=== PATIENT | female | born 1935 | race Caucasian/White ===

== ENCOUNTER 2024-06-22 05:13 | Inpatient (IN) | payer OTHER, SELFPAY ==
[2024-06-22] VITALS (86 sets, daily range): BP systolic 74–189; BP diastolic 30–160; BMI 20.5
[2024-06-22] MEDS: AMIDATE 20 MG IV (00:33)
--- NOTE | 2024-06-22 00:39 | ED.GENMED ---
History of Present Illness
General
Chief Complaint: Breathing Problem
Source: ambulance crew
Time Seen by Provider: 06/22/24 00:38
History of Present Illness
History of Present Illness:
88-year-old female presents emergency department with reported shortness of breath. Medics were reportedly called out earlier but at that time they refused transport. Upon their second presentation patient was noted to be in mass respiratory
distress with a pulse ox in the 70s. With the nonrebreather they were able to get a maximum pulse ox of 82% and patient was noted to be nonverbal and minimally responsive. History unobtainable from patient at this time and there are no prior
medical records for our review.
Past History
Past History
ED Past Medical History: Renal failure and Other (A-fib, vascular dementia, hypothyroidism)
Social History
Tobacco: Non-smoker (Unknown at this time patient nonverbal)
Alcohol: None (Unknown at this time patient nonverbal)
Drug: None
Personal:
Living: with family
Phy Exam
Physical Exam
Physical Exam:
GENERAL: awake, alert, nonverbal, in severe resp distress
EYE: pupils equal and reactive
NECK: Supple, no significant adenopathy.
ENT: o/p clr, mm very dry
CARDIAC: Regular rate and rhythm .
LUNGS: Equal breath sounds bilaterally, severe resp distress, diffuse rales with scattered wheezing noted
ABDOMEN: Soft, without focal tenderness, no r/g
NEUROLOGICAL: unable to assess given severity of resp distress, no facial droop, maee
SKIN: Warm and dry, skin intact.
MUSCULOSKELETAL: No edema, well perfused.
PSYCH: nonverbal
Scores
Heart Failure Risk
Heart Failure Risk Score: Not Applicable
Course
Orders/Labs/Results
Orders:
Orders
06/22/24 00:28
Electrocardiogram (*1) Urgent
Reason for Study: Other
Other Reason for Exam: Respiratory Distress
EKG- Treatment ONCE
CR Chest Portable - 1 View Urgent
Comment:
Reason For Exam: respiratory distress
Reason Study Needs to be Portable: Patient Unstable
06/22/24 00:33
Etomidate [Amidate 20 mg] 20 mg IV NOW STA
06/22/24 00:34
Succinylcholine Chloride [Anectine] 100 mg IV NOW STA
06/22/24 00:35
COVID-19 Antigen Urgent
Source: Nasal Swab
Complete Blood Count/With Diff Urgent
Comprehensive Metabolic Panel Urgent
NT-proBNP Urgent
Triglycerides Routine
Comment: baseline levels with propofol infusion
Troponin I Urgent
Influenza A+B Rapid Molecular Urgent
WENDY Source: Nasal Swab
Specimen Description:
06/22/24 00:38
Propofol 1,000,000 Mcg/100 ml [Diprivan] 1,000,000 mcg in 100 ml IV NOW
Indication:: Light Sedation
Begin Infusion:: Now
Goal:: RASS 0 to -2
Maximum dose in mcg/kg/min:: 50
Initial dose based on RASS:: Yes
If RASS is:: +1 or pt hemodynamically unstable (SBP < 90mmHg), initiate at 10 mcg/kg/min
If RASS is:: +2, initiate at 20 mcg/kg/min
If RASS is:: greater than or equal to +3, initiate at 30 mcg/kg/min
Titration Instructions:: Titrate by 5-10 mcg/kg/min every 5 minutes until RASS 0 to -2 achieved.
Taper Instructions:: If RASS is at or below goal for 4 consecutive hours decrease infusion by
Taper Instructions:: 5-10 mcg/kg/min every 2 hours to off.
Over-sedation Instructions:: If CPOT 0-2 (at goal) AND RASS -3 to -5 (below goal) decrease sedative by
Over-sedation Instructions:: 50% first. If pain score remains at goal and RASS remains below goal in
Over-sedation Instructions:: 1 hour, decrease opioid infusion by 50%.
Notify provider:: immediately if patient exhibits signs/symptoms of propofol-related
Notify provider:: infusion syndrome.
Additional Instructions:: Patient MUST be mechanically ventilated and MUST receive analgesia.
06/22/24 00:57
Lactic Acid Q4H
Comment: WITH 1ST SET OF BLOOD CULTURES,CANCEL 2ND LACTIC ACID IF FIRST <2
Prothrombin Time Urgent
Venous Blood Gas Urgent
%Oxygen/Room Air: 100
Comment: vent
06/22/24 01:37
Aspirin 300 mg RECTAL NOW STA
Furosemide [Lasix] 40 mg IV ONCE ONE
06/22/24 03:08
Propofol [Diprivan] 20 ml .ROUTE .STK-MED
06/22/24 03:09
Propofol [Diprivan] 50 mg IV NOW STA
06/22/24 04:08
Admit/Transfer Patient As Directed
Co-Sign Provider:
Level of Care: Inpatient admission
Assign to:: ICU
Physician / Group: Ivonne
Diagnosis: VDRF, Acute Hypoxemic Resp Failure, Influenza A
Reason for Hospitalization: VDRF, Acute Hypoxemic Resp Failure, Influenza A
Expected length of stay greater than two midnights?: Yes
ELOS- Estimated Length of Stay in days: 5
I certify the patient meets the requirements for IP care: Yes
PRN Pain Medication Management As Directed
May give lesser potent ordered pain med per pt: Yes
preference::
Protocol:: Medication orders for pain may be administered in a
manner that supports deferring to patient preference
when the pt is:
- Requesting an ordered lesser potent pain medication.
Least to most potent pain medications are defined
as: acetaminophen < NSAID < tramadol < opioids
(morphine, oxycodone, hydromorphone).
- Requesting a lesser dose of the same medication IF
ORDERED.
- Requesting a less intrusive route of administration
if both routes are prescribed by the provider (PO <
IV).
06/22/24 04:09
Code Status As Directed
Resuscitation Status: Full Code
06/22/24 04:50
Oseltamivir [Tamiflu] 30 mg TUBE NOW STA
06/22/24 05:35
Lactic Acid Q4H
Comment: WITH 1ST SET OF BLOOD CULTURES,CANCEL 2ND LACTIC ACID IF FIRST <2
06/22/24 05:56
Acetaminophen [Tylenol Oral Solution] 650 mg TUBE Q6H
FentaNYL 1,000 MCG/100 ML [Sublimaze] 1,000 mcg in 100 ml IV PER PROTOCOL
Indication:: Light Sedation
Begin Infusion:: Other
Begin infusion when:: patient requires 3 or more bolus doses in 2 consecutive hours
Goal:: pain score </= 1, CPOT 0-2, RASS 0 to -2
Maximum dose in mcg/hr:: 300
Initial Dose in mcg/hr:: 25
Titration Instructions:: Titrate every 30 minutes if patient exhibits signs of pain or discomfort
Titration Instructions:: (pain score >/= 2, CPOT>/= 3).
Titration Instructions:: Administer bolus dose and increase infusion by 25 mcg/hr.
Taper Instructions:: If pain score at goal for 4 consecutive hours (pain score </= 1, CPOT 0-2)
Taper Instructions:: decrease infusion by 50 mcg/hr every 2 hours.
Taper Instructions:: When dose </= 50 mcg/hr may turn infusion off and consider PRN
Taper Instructions:: intermittent bolus doses only.
Over-sedation Instructions:: If CPOT 0-2 (goal) and RASS -3 to -5 (below goal) decrease sedative by 50%
Over-sedation Instructions:: first. If pain score remains at goal and RASS remains below goal in 1 hour,
Over-sedation Instructions:: decrease opioid infusion by 50%.
Notify provider:: immediately if pt exhibits: chest wall rigidity, hemodynamic instability,
Notify provider:: agitation/pain despite maximum dosing, pain when RASS -3 to -5 (below goal)
Additional Instructions:: When starting infusion, administer bolus dose per PRN order first.
Additional Instructions:: Patient MUST be mechanically ventilated.
Fentanyl Citrate/Pf [Sublimaze] 50 mcg IV [id number] PRN
Propofol 1,000,000 Mcg/100 ml [Diprivan] 1,000,000 mcg in 100 ml IV PER PROTOCOL
Indication:: Light Sedation
Begin Infusion:: Now
Goal:: RASS 0 to -2
Maximum dose in mcg/kg/min:: 50
Continue currently infusion dose and titrate:: Yes
Titration Instructions:: Titrate by 5-10 mcg/kg/min every 5 minutes until RASS 0 to -2 achieved.
Taper Instructions:: If RASS is at or below goal for 4 consecutive hours decrease infusion by
Taper Instructions:: 5-10 mcg/kg/min every 2 hours to off.
Over-sedation Instructions:: If CPOT 0-2 (at goal) AND RASS -3 to -5 (below goal) decrease sedative by
Over-sedation Instructions:: 50% first. If pain score remains at goal and RASS remains below goal in
Over-sedation Instructions:: 1 hour, decrease opioid infusion by 50%.
Notify provider:: immediately if patient exhibits signs/symptoms of propofol-related
Notify provider:: infusion syndrome.
Additional Instructions:: Patient MUST be mechanically ventilated and MUST recieve analgesia
06/22/24 05:56
Consult Notification Routine
Specialty to Notify: Pulmonary
Date consulting provider notified: 06/22/24
Time consulting provider notified: 06:56
Notified:: Provider
PULMONARY CONSULT Routine
Consulting Provider: Anai Gupta
Was physician already notified: No
Reason for consult: VDRF / Influenza
Activity As Directed
Activity Level: Bedrest
EKG with chest pain [ECG as needed] As Directed
ECG as needed for:: Chest Pain
Beckman Catheter [Catheter- Indwelling] As Directed
Reason for insertion: I&O's Critical Care
Assess insertion reason daily.Remove if no longer applicable: Yes
Gastrointestinal Tubes As Directed
Type: Landen meyerjulius
To suction?: No
Irrigate tube?: Yes
Irrigant: Tap Water
Frequency: Q4H
Amount in mls: 30
Irrigation Directions: Irrigate Q4H and PRN
I/O [Intake/ Output] As Directed
Frequency: Per unit guidelines
Pneumatic Compression Sleeves As Directed
Type: Knee high
Precautions As Directed
Type of Precautions: Droplet
Vital Signs As Directed
Frequency: Per unit guidelines
Weight As Directed
Frequency: Daily
DX Deep Vein Thrombosis Video Routine
06/22/24 06:00
EKG [Electrocardiogram (*1)] IN AM
Reason for Study: Chest Pain
NPO
Allow oral meds: Yes
Allow clear liquids: Sips of Clears
Piperacillin/Tazo 2.25 Gram [Zosyn] 2.25 grams in 50 ml IV Q6H
06/22/24 06:21
Basic Metabolic Panel IN AM
Complete Blood Count/No Diff IN AM
LFT [Nrrpj-Weyu-Ltvaqja] IN AM
Magnesium IN AM
TSH Reflex To Free T4 Routine
Triglycerides Routine
Comment: baseline levels with propofol infusion
Troponin I Q6H
06/22/24 06:24
ABG [Arterial Blood Gas] IN AM
%Oxygen/Room Air: Vent
06/22/24 08:00
Albuterol [ProAIR HFA INHALER] 2 puff INH R QID
Amiodarone [Pacerone] 100 mg TUBE DAILY
Apixaban [Eliquis] 2.5 mg TUBE BID
Pantoprazole [Protonix IV] 40 mg IV DAILY
06/22/24 15:13
Troponin I Q6H
06/22/24 23:08
Troponin I Q6H
06/23/24 06:00
Levothyroxine [Synthroid] 112 mcg TUBE DAILY@0600
06/23/24 08:00
Oseltamivir [Tamiflu] 30 mg TUBE DAILY
Polyethylene Glycol Powder [Miralax] 17 grams TUBE DAILY
06/25/24 06:00
Triglycerides Q3D
Comment: every 72 hours while patient is on propofol
06/28/24 06:00
Triglycerides Q3D
Comment: every 72 hours while patient is on propofol
07/01/24 06:00
Triglycerides Q3D
Comment: every 72 hours while patient is on propofol
Abnormal Lab Results
06/22/24 06/22/24
00:35 00:57
WBC 18.9 H 10^3/uL
(4.8-10.8)
RBC 3.58 L 10^6/uL
(4.20-5.40)
Hgb 11.0 L g/dL
(12.0-16.0)
Hct 35.5 L %
(37.0-47.0)
MCV 99.2 H fL
(81.0-99.0)
MCHC 31.0 L g/dL
(33.0-37.0)
MPV 10.7 H fL
(7.4-10.4)
Abs Immat Gran (auto) 0.4 H 10^3/uL
(0-0.05)
Absolute Neuts (auto) 13.3 H 10^3/uL
(1.4-6.5)
Absolute Monos (auto) 1.9 H 10^3/uL
(0.1-0.6)
Immature Gran % 2.2 H %
(0-0.5)
Lymphocytes % 17.1 L %
(20.5-51.1)
Monocytes % 10.1 H %
(1.7-9.3)
PT 16.7 H Sec
(11.4-14.6)
VBG pH 7.21 L
(7.32-7.43)
VBG pCO2 52 H mmHg
(35-48)
VBG pO2 103 H mmHg
(30-50)
VBG HCO3 20.8 L mmol/L
(22-27)
Carbon Dioxide 17 L mmol/L
(22-30)
BUN 36 H mg/dl
(7-17)
Creatinine 1.7 H mg/dL
(0.6-1.0)
Glucose 241 H mg/dl
(70-99)
Lactic Acid 3.7 H mmol/L
(0.7-2.0)
AST 98 H U/L
(14-36)
ALT 58 H U/L
(0-35)
Alkaline Phosphatase 179 H U/L
(38-126)
Troponin I 0.735 H* ng/ml
06/22/24 00:35
06/22/24 00:35
Vital Signs
Initial and Last Documented VS:
Initial Vital Signs
Temp Pulse Resp BP Pulse Ox
97.8 F 72 22 145/60 57
06/22/24 00:25 06/22/24 00:25 06/22/24 00:25 06/22/24 00:25 06/22/24 00:25
Last Documented Vital Signs
Temp Pulse Resp BP Pulse Ox
96.3 F L 62 15 107/46 99
06/24/24 07:22 06/24/24 08:30 06/24/24 08:30 06/24/24 08:30 06/24/24 08:44
Procedures
Intubations
Procedure completed by: Sanna Beckman MD
Method of Intubation: glidescope
Tube size (cm): 7.0
Placement confirmed by: auscutation, capnography and direct visualization
Breath sounds after intubation: equal
Intubation complications: no complications
*Critical Care Note
Total Time (30-74mins, 75-104mins- exclusive of procedures): 40
Update Note
Update Note:
Patient presents to the Emergency Department with
Number and Complexity of Problems Addressed at the Encounter
� Chronic conditions affecting care:
� Acute Exacerbation and/or Progression of Chronic Illness:
� Differential Diagnosis includes:
Amount and/or Complexity of Data to be Reviewed and Analyzed
� I performed an independent evaluation of and my interpretation is:
EKG: Read by me, normal sinus rhythm, nonspecific T wave abnormalities, no acute STEMI noted
CT:
Xrays:
Laboratory Studies: Influenza A positive with associated leukocytosis and left shift, nonspecific anemia, renal insufficiency, troponin elevation likely demand ischemia, BNP elevation may be consistent with concurrent heart
failure
Other:
� Review of other/old records reveals: None available however I have reviewed patient's medications that were brought by EMS she is on amiodarone, levothyroxine, antihypertensive medications.
� Clinical information was obtained by an independent historian: EMS
� Prescriptions/Medications Considered but not given:
� Further testing considered but not performed:
Risk of Complications and/or Morbidity or Mortality of Patient Management
� Social determinants of health affecting care:
� Discussion with other providers (PCP, Hospitalists, Consultants, etc):
� Escalation of care including admission/observation vs risk of discharge considered: 12:44 AM patient's pulse ox upon initial presentation was in the mid 50s despite nonrebreather. We quickly prepared for intubation, successful
after 1 attempt, no complications, pulse ox now 95%.
1:58 AM further history obtained from who is now bedside he states that patient suffers from vascular dementia and that she just seemed' today. He describes this as her having urinary frequency associated with a cough and just 'not really
coherent'. He running the PCP who prescribed antibiotics and Tessalon Perles. Then, later in the day, he noted that her pulse ox was low, but when EMS arrived and checked her pulse ox it was normal. He went to work and when he came home he noted
that it sounded like she was breathing through a straw and that her breathing was 'wet' which is why he called EMS. He states patient has a history of atrial fibrillation.
2:00 AM flu positive however given patient is intubated we are unable to administer Tamiflu. Given lasix/asa given possible concurrent hf and elevated trop although no ischemic changes on ecg. Recommend abx, will d/xw Dr Stevens for admission.
Vitals remain stable.
ED Attending Note
-
Portions of this chart may have been created with voice recognition software.� Occasional wrong word or��sound alike� substitutions may have occurred due to the inherent limitations of voice recognition software.
Discharge Plan
Departure
Patient Disposition: Admit
Date of Disposition: 06/22/24
Time of Disposition: 02:17
Admit to: ICU
Admit to doctor: ivonne
Presentation/result/management discussed w/ accepting MD/DO: Hospitalist
Condition: Critical
Discharge Problem:
Influenza A
Interventions
Interventions:
*General Assessment Last Done: 06/22/24 00:25
*Neglect/Abuse Screening Last Done: 06/22/24 00:25
ED- Fall Risk Assessment Last Done: 06/22/24 00:25
*Nursing Disposition Last Done: 06/22/24 05:45
ED- Cardiac Assessment Last Done: 06/22/24 03:15
ED- Pulmonary Assessment Last Done: 06/22/24 03:15
Discharge Date and Time
Discharge Date/Time: 06/22/24 05:45
[2024-06-22] MEDS: ANECTINE 100 MG IV (00:44)
[2024-06-22 00:45] LABS: % Basophils 0.4 % (0-2); % Immature Granulocytes 2.2 % (0-0.5); % Lymphocytes 17.1 % (20.5-51.1); % Monocytes 10.1 % (1.7-9.3); % Neutrophils 70.2 % (42.2-75.2); Absolute Basophils 0.1 10^3/uL (0-0.2); Absolute Immature Granulocytes 0.4 10^3/uL (0-0.05); Absolute Lymphocytes 3.2 10^3/uL (1.2-3.4); Absolute Monocytes 1.9 10^3/uL (0.1-0.6); Absolute Neutrophils 13.3 10^3/uL (1.4-6.5); Hematocrit 35.5 % (37.0-47.0); Mean Corpuscular Hgb 30.7 pg (27.0-31.0); Mean Corpuscular Volume 99.2 fL (81.0-99.0); Mean Platelet Volume 10.7 fL (7.4-10.4); Nucleated Red Blood Cells % 0 %; Platelet Count 245 10^3/uL (130-400); Red Blood Cell Count 3.58 10^6/uL (4.20-5.40); Red Cell Dist. Width 14.4 % (11.5-14.5); White Blood Cell Count 18.9 10^3/uL (4.8-10.8)
[2024-06-22] MEDS: DIPRIVAN 100 IV ×4 (00:49→17:39)
[2024-06-22 01:03] LABS: ALT (SGPT) 58 U/L (0-35); AST (SGOT) 98 U/L (14-36); Albumin 4.6 g/dl (3.5-5.0); Alkaline Phosphatase 179 U/L (38-126); Blood Urea Nitrogen 36 mg/dl (7-17); Carbon Dioxide 17 mmol/L (22-30); Chloride 105 mmol/L (98-107); Glucose 241 mg/dl (70-99); Potassium 4.4 mmol/L (3.5-5.1); Sodium 139 mmol/L (135-145); Total Bilirubin 1.2 mg/dl (0.2-1.3); Total Protein 7.3 g/dl (6.3-8.2); Triglycerides 133 mg/dl (10-149); eGFR 28.67
[2024-06-22 01:05] LABS: COVID-19 Antigen Negative (Negative)
[2024-06-22 01:07] LABS: Venous Blood Gas B.E. -7.2 mmol/L (-4 to +4); Venous Blood Gas HCO3 20.8 mmol/L (22-27); Venous Blood Gas O2 Sat % 97.4 %; Venous Blood Gas pCO2 52 mmHg (35-48); Venous Blood Gas pH 7.21 (7.32-7.43); Venous Blood Gas pO2 103 mmHg (30-50)
[2024-06-22 01:09] LABS: Venous Blood Gas O2 Therapy VENT
[2024-06-22 01:11] LABS: NT-proBNP 19500 pg/ml; Troponin I 0.735 ng/ml
[2024-06-22 01:23] LABS: Lactic Acid 3.7 mmol/L (0.7-2.0)
[2024-06-22 01:29] LABS: PT 16.7 Sec (11.4-14.6)
[2024-06-22] MEDS: LASIX 40 MG IV (01:53)
[2024-06-22] MEDS: ASPIRIN 300 MG RECTAL ×2 (01:53→08:40)
[2024-06-22] MEDS: DIPRIVAN 50 MG IV (03:09)
--- NOTE | 2024-06-22 04:17 | HPS.HSE ---
Family Physician
-
Family Physician: INTERVIEWE UNKNOWN - PT NOT
Chief Complaint
-
Resp Distress
History of Present Illness
Patient is an 88y F with PMH significant for vascular dementia, hypertension and hypothyroidism who presents to ED for evaluation of respiratory distress. History is obtained from ED staff, EMS report and at the bedside. notes
that he had symptoms of influenza on - but he felt markedly improved after only one day. Patient started to have cough, increased weakness and some heavy breathing on Monday AM. These symptoms worsened throughout the day. Home caregiver
called EMS when oxygen saturations were in the 70s. EMS evaluated the patient, noted normal SpO2 levels and patient appearing comfortable at that time.
They contacted the patient's PCP who prescribed Augmentin, Doxycycline and Tessalon Perles which she took a single dose of so far today.
returned home from work and they went to bed. He woke around 11 PM and noted that patient's breathing sounded 'like water in a straw'.
She appeared to be in distress and EMS was again called. On this occasion, her SpO2 was in the 70s and only increased to the 80s on NRB mask.
Patient was transported to the ED for evaluation where she was noted to be markedly hypoxemic and in severe distress and was intubated.
At the time of my examination, patient is sedated on the vent with improved oxygenation.
Medical History
Past Medical History
Past Medical History: Reports Other
Additional Past Medical History:
Hypertension
Atrial Fibrillation
Vascular Dementia with Behavioral Disturbance
Breast Cancer
Colon Cancer
Hypothyroidism
Past Surgical History: Reports Other
Additional Past Surgical History:
Lumpectomy
Partial Colectomy
Social History
Tobacco: Non-smoker
Alcohol: None
Drug: None
Personal:
Living: With Family
Family History
Family History: Not pertinent
Allergies / Home Medications
Allergies reflects when Allergies were last updated in [facility].
Home Medications with original date entered in [facility]
Allergy/Medication List:
Allergies
Allergy/AdvReac Type Severity Reaction Status Date / Time
codeine Allergy Rash Verified 06/22/24 01:34
Home Medications
amiodarone 200 mg tablet 200 mg PO DAILY 06/22/24
amoxicillin 500 mg-potassium clavulanate 125 mg tablet (Augmentin) 1 tab PO BID 06/22/24
apixaban 2.5 mg tablet (Eliquis) 2.5 mg PO BID 06/22/24
benzonatate 100 mg capsule 100 mg PO TID PRN cough 06/22/24
bisoprolol fumarate 10 mg tablet 10 mg PO DAILY 06/22/24
citalopram 10 mg tablet 10 mg PO DAILY 06/22/24
donepezil 5 mg tablet 5 mg PO HS 06/22/24
doxycycline hyclate 100 mg tablet 100 mg PO BID 06/22/24
famotidine 20 mg tablet (Pepcid) 20 mg PO DAILY 06/22/24
levothyroxine 112 mcg tablet 112 mcg PO DAILY 06/22/24
losartan 100 mg tablet 100 mg PO DAILY 06/22/24
olanzapine 5 mg tablet (Zyprexa) 5 mg PO DAILY 06/22/24
Review of Systems
-
Unable to obtain full review of systems at this time due to: Patient Intubation
Physical Exam
Vital Signs
Vital Signs
Temp Pulse Resp BP Pulse Ox
97.8 F 76 29 104/81 99
06/22/24 00:25 06/22/24 03:30 06/22/24 03:30 06/22/24 03:30 06/22/24 03:15
Physical Exam
General: Other (88y F currently intubated / on vent support.)
HEENT: Moist mucous membranes and Other (Neck supple. ETT in place.)
Respiratory: Other (Coarse breath sounds throughout all lung piedra. No wheezing.)
Cardiac: S1/S2 and Regular Rhythm; No Murmur
GI: Soft, Non Tender, Non Distended and Normal Bowel Sounds
Musculoskeletal: No Clubbing, No Cyanosis and No Edema
Neuro: AO x 3
Laboratory Results
-
06/22/24 00:35
06/22/24 00:35
Laboratory Results
PT 16.7 Sec (11.4-14.6) H 06/22/24 00:57
INR 1.30 06/22/24 00:57
Lactic Acid 3.7 mmol/L (0.7-2.0) H 06/22/24 00:57
Total Bilirubin 1.2 mg/dl (0.2-1.3) 06/22/24 00:35
AST 98 U/L (14-36) H 06/22/24 00:35
ALT 58 U/L (0-35) H 06/22/24 00:35
Alkaline Phosphatase 179 U/L (38-126) H 06/22/24 00:35
Troponin I 0.735 ng/ml H* 06/22/24 00:35
Impression/Plan
-
A/P: Patient is an 88y F with PMH significant for hypertension, vascular dementia and A-Fib who presents to ED via EMS in respiratory distress.
Influenza A Pneumonia
Acute Hypoxemic Respiratory Failure secondary to the above
VDRF secondary to the above
Sepsis secondary to the above
Lactic Acidosis secondary to the above
- Admit to ICU for further evaluation and treatment.
- Maintain vent support, sedation, etc.
- Tamiflu via tube (renally dosed).
- Will cover for possible secondary bacterial infection as well given intubation / severity of illness.
- Pulm/ CC evaluation for additional recommendations.
- Follow proper precautions.
- Follow for clinical improvement / weaning trials when appropriate.
Non-Ischemic Myocardial Injury
- Likely secondary to influenza / sepsis as noted above.
- Continue to follow troponin to peak.
- Monitor for any EKG changes.
- Check Echo given markedly elevated BNP - but clinically not consistent with CHF.
Renal Insufficiency
- CKD v MELINDA - suspect the latter given acute illness.
- Follow for changes over the next 48 hours to establish baseline.
- Renally dose medications as needed.
Paroxysmal Atrial Fibrillation
- Continue amiodarone and Eliquis.
- Monitor on telemetry.
Benign Hypertension
- Hold BP agents acutely due to sepsis.
Hypothyroidism
- Stable. Continue T4 supplementation.
Vascular Dementia with Behavioral Disturbance
- Stable. Currently on vent support and sedation.
- Resume usual psychotropic med regimen once extubated.
DVT Prophylaxis: Eliquis
Code Status: Full
[2024-06-22] MEDS: TAMIFLU 30 MG TUBE (05:12)
[2024-06-22 05:58] LABS: Lactic Acid 2.8 mmol/L (0.7-2.0)
--- NOTE | 2024-06-22 06:20 | W.PN.SEPSIS ---
Sepsis
Vital Signs
Temp Pulse Resp BP Pulse Ox
97.8 F 71 17 146/81 100
06/22/24 00:25 06/22/24 06:00 06/22/24 06:00 06/22/24 05:00 06/22/24 06:00
Physical Exam
Physical Exam:
A focused exam was performed after fluid resuscitation.
Capillary Refill
Bilateral Upper Extremity:
Sherry Time: Less than 3 sec
Bilateral Lower Extremity:
Sherry Time: Less than 3 sec
Pulse Evaluation
Bilateral Radial:
Pulse Evaluation: Present
Bilateral Dorsalis Pedis:
Pulse Evaluation: Present
[2024-06-22 06:35] LABS: B.E. -1.2 mmol/L; HCO3 21.6 mmol/L (21-28); O2 Saturation % 98.4 % (94-98); PCO2 29 mmHg (32-35); PO2 256 mmHg (83-108); pH 7.48 (7.35-7.45)
[2024-06-22 06:37] LABS: O2 Therapy VENT
[2024-06-22 06:38] LABS: Hematocrit 30.9 % (37.0-47.0); Hemoglobin 11.2 g/dL (12.0-16.0); Mean Corp Hgb Conc. 36.2 g/dL (33.0-37.0); Mean Corpuscular Volume 93.9 fL (81.0-99.0); Mean Platelet Volume 11.3 fL (7.4-10.4); Platelet Count 190 10^3/uL (130-400); Red Blood Cell Count 3.29 10^6/uL (4.20-5.40); Red Cell Dist. Width 14.4 % (11.5-14.5); White Blood Cell Count 10.7 10^3/uL (4.8-10.8)
[2024-06-22] MEDS: TYLENOL ORAL SOLUTION 650 MG TUBE ×3 (06:43→22:51)
[2024-06-22 06:57] LABS: ALT (SGPT) 75 U/L (0-35); AST (SGOT) 143 U/L (14-36); Albumin 4.1 g/dl (3.5-5.0); Alkaline Phosphatase 153 U/L (38-126); Blood Urea Nitrogen 37 mg/dl (7-17); Calcium 8.5 mg/dl (8.4-10.2); Carbon Dioxide 20 mmol/L (22-30); Chloride 102 mmol/L (98-107); Direct Bilirubin 0.5 mg/dl (0.0-0.4); Estimated Creatinine Clearance 20 ml/min; Glucose 108 mg/dl (70-99); Magnesium 2.1 mg/dl (1.6-2.3); Sodium 139 mmol/L (135-145); Total Bilirubin 1.1 mg/dl (0.2-1.3); Total Protein 6.8 g/dl (6.3-8.2); eGFR 30.83
[2024-06-22] MEDS: ZOSYN IV (06:58)
[2024-06-22] MEDS: NSS 500 IV (07:00)
--- NOTE | 2024-06-22 07:01 | PTCARENOTE ---
received pt from ED, pt intubated unresponsive, restraints applied, NS on the monitor pulses weak on palpation, AC 16/450/5/100 coarse rhonchi throughout, weak cough, BSx4 hypoactive, OGT 45cm brown output, temp sensing lomeli placed yellow output,
skin pale dry and intact, 22G R wrist, 20G RFA, prop 30/9.9, CHG bath, 103.9 core temp, Tylenol given per order, labs and ABG sent, updated and @ bedside otherwise refer to documentation
[2024-06-22 07:10] LABS: Triglycerides 1335 mg/dl (10-149)
[2024-06-22] MEDS: ProAIR HFA INHALER 2 PUFF INH (07:18)
[2024-06-22 07:25] LABS: TSH Reflex To Free T4 0.89 uIU/ml (0.47-4.68)
--- NOTE | 2024-06-22 07:31 | CON.CAR ---
Addendum entered and electronically signed by Ti Rutledge MD 06/22/24 11:15:
Patient seen and examined
Agree with assessment and plan
Agree with examination
Seen intubated in the ICU setting.
Recent flu a diagnosis is notable.
Significant past medical history as delineated below.
Examination:
Unable to cooperate with exam
She is intubated and sedated
Appears relatively cachectic
Intubated
Cor is regular without significant murmur on examination
Lungs are diminished bilaterally without rales.
Abdomen is soft and is in the process of being examined with an ultrasound diagnostic test
No significant edema on examination
Flow Match Sofa Cutter: Dr. Hahn ([facility] Cardiology)
Impression:
Presented w/ respiratory distress
VDRF
Influenza A Pneumonia
Sepsis
Elevated troponin
Paroxysmal atrial fibrillation
Chronic amiodarone therapy
Chronic OAC with Eliquis
Hypertension
Hypothyroidism
h/o breast cancer
h/o colon cancer
Vascular dementia
Plan:
-Presented with respiratory distress. Intubated in ER. Remains intubated and sedated. Admitted with sepsis due to Influenza A pneumonia.
-Continue management of influenza pneumonia per primary service.
-Cardiology consulted for elevated troponin. Trop up to 1.52. Will continue to trend to peak. I would manage her medically at this time given her intubation and vent dependent respiratory failure with influenza A. Certainly with acute influenza A
there can be troponin elevation from pericarditis or myocarditis and would trend.
-Would check an echocardiogram Monday
-No h/o CAD. Agree w/ heparin and aspirin. There is no indication for invasive evaluation at this time. When she is taking oral medications can convert her back to her outpatient apixaban.
-Eventual ischemic evaluation.
-Remains in SR by ECG and on review of telemetry.
-OP BP medications on hold.
-Continue amiodarone 100mg daily. I believe this is for her history of paroxysmal atrial fibrillation.
-TSH WNL. Continue levothyroxine.
-Vent management per time piece repairer.
Original Note:
Consultation
Consultation Request
Date/Time Consultation Requested: 06/22/2024
Date/Time Consultation Performed: 06/22/2024
Requesting Provider: Dr. Cantrell
Performing Provider: Maryse Hernandez PA-C for Dr. Rutledge
Reason for Consultation: Elevated troponin, respiratory failure
Medical History
-
History of Present Illness:
HPI: Liza is an 88-year-old female with past medical history of paroxysmal atrial fibrillation maintained on Eliquis and amiodarone, hypertension, hypothyroidism, breast cancer, colon cancer, and vascular dementia. She presented to ER for
evaluation of respiratory distress. History is obtained from as patient is intubated and sedated. He reports they began feeling unwell earlier this week with flulike symptoms. She was given antibiotics and cough medicine by PCP. She
continued to feel poorly. He had EMS come out to evaluate her around 5 PM and reportedly she was stable with normal pulse ox and did not require hospitalization. They went to sleep later that night and when he woke up around 11 PM, he noted that
her breathing sounded labored, so he then called EMS and pulse ox was noted to be in the 70s and she was placed on nonrebreather. On arrival to the ER, she was markedly hypoxemic and in severe distress and required intubation. She remains
intubated and sedated at this time and has been admitted to the ICU with influenza A pneumonia and sepsis. Elevated troponin noted, trending up to 1.52 resulting in cardiology consultation. Has been reports no history of coronary artery disease or
prior stenting. He does note that she had a an echo within the past few months and has never been told that she has a weakened heart muscle
PMH:
Paroxysmal atrial fibrillation
Chronic amiodarone therapy
Chronic OAC with Eliquis
Hypertension
Hypothyroidism
h/o breast cancer
h/o colon cancer
Vascular dementia
Past Medical History
Past Medical History: Other (In HPI)
Past Surgical History: Other (Lumpectomy, partial colectomy)
Social History
Tobacco: Non-Smoker
Alcohol: None
Drug: None
Personal:
Living: With Family
Family History
Family History: Reviewed & Not Pertinent
Allergies / Home Medications
Allergy/AdvReac Type Severity Reaction Status Date / Time
codeine Allergy Rash Verified 06/22/24 01:34
�Medication �Instructions �Recorded �Confirmed �Type
amiodarone 200 mg tablet 200 mg PO DAILY 06/22/24 06/22/24 History
amoxicillin 500 mg-potassium 1 tab PO BID 06/22/24 06/22/24 History
clavulanate 125 mg tablet
(Augmentin)
apixaban 2.5 mg tablet (Eliquis) 2.5 mg PO BID 06/22/24 06/22/24 History
benzonatate 100 mg capsule 100 mg PO TID PRN cough 06/22/24 06/22/24 History
bisoprolol fumarate 10 mg tablet 10 mg PO DAILY 06/22/24 06/22/24 History
citalopram 10 mg tablet 10 mg PO DAILY 06/22/24 06/22/24 History
donepezil 5 mg tablet 5 mg PO HS 06/22/24 06/22/24 History
doxycycline hyclate 100 mg tablet 100 mg PO BID 06/22/24 06/22/24 History
famotidine 20 mg tablet (Pepcid) 20 mg PO DAILY 06/22/24 06/22/24 History
levothyroxine 112 mcg tablet 112 mcg PO DAILY 06/22/24 06/22/24 History
losartan 100 mg tablet 100 mg PO DAILY 06/22/24 06/22/24 History
olanzapine 5 mg tablet (Zyprexa) 5 mg PO DAILY 06/22/24 06/22/24 History
Review of Systems
-
Unable to obtain full review of systems at this time due to: Patient Intubation
Physical Exam
Vital Signs
Temp Pulse Resp BP Pulse Ox
97.8 F 68 22 146/81 100
06/22/24 00:25 06/22/24 07:19 06/22/24 07:19 06/22/24 05:00 06/22/24 07:23
Lab Results
06/22/24 06:21
Troponin I 1.520 ng/ml H* D 06/22/24 06:21
Fph-J-Hxscmpzfrkm Pept 97873 pg/ml 06/22/24 00:35
Physical Exam
General: Intubated
HEENT: Moist Mucous Membranes
Cardiac: Regular Rhythm
Musculoskeletal: No Clubbing and No Cyanosis
Skin: Warm and Dry
Neuro: Sedated
Impression / Plan
-
Flow Match Sofa Cutter: Dr. Hahn ([facility] Cardiology)
Impression:
Presented w/ respiratory distress
VDRF
Influenza A Pneumonia
Sepsis
Elevated troponin
Paroxysmal atrial fibrillation
Chronic amiodarone therapy
Chronic OAC with Eliquis
Hypertension
Hypothyroidism
h/o breast cancer
h/o colon cancer
Vascular dementia
Plan:
-Presented with respiratory distress. Intubated in ER. Remains intubated and sedated. Admitted with sepsis due to Influenza A pneumonia.
-Continue management of influenza pneumonia per primary service.
-Cardiology consulted for elevated troponin. Trop up to 1.52. Will continue to trend to peak.
-Eventually check echo. Patient's reports no history of CM.
-No h/o CAD. Agree w/ heparin and aspirin.
-Eventual ischemic evaluation.
-Remains in SR by ECG and on review of telemetry.
-OP BP medications on hold.
-Continue amiodarone 100mg daily
-TSH WNL. Continue levothyroxine.
-Vent management per time piece repairer.
HPI: Liza is an 88-year-old female with past medical history of paroxysmal atrial fibrillation maintained on Eliquis and amiodarone, hypertension, hypothyroidism, breast cancer, colon cancer, and vascular dementia. She presented to ER for
evaluation of respiratory distress. History is obtained from as patient is intubated and sedated. He reports they began feeling unwell earlier this week with flulike symptoms. She was given antibiotics and cough medicine by PCP. She
continued to feel poorly. He had EMS come out to evaluate her around 5 PM and reportedly she was stable with normal pulse ox and did not require hospitalization. They went to sleep later that night and when he woke up around 11 PM, he noted that
her breathing sounded labored, so he then called EMS and pulse ox was noted to be in the 70s and she was placed on nonrebreather. On arrival to the ER, she was markedly hypoxemic and in severe distress and required intubation. She remains
intubated and sedated at this time and has been admitted to the ICU with influenza A pneumonia and sepsis. Elevated troponin noted, trending up to 1.52 resulting in cardiology consultation. Has been reports no history of coronary artery disease or
prior stenting. He does note that she had a an echo within the past few months and has never been told that she has a weakened heart muscle
Data Reviewed
-
EKG: Tracing Personally Visualized and interpreted
Radiology: Report Reviewed by me
Labs: Labs Reviewed by me
[2024-06-22 07:45] LABS: Hematocrit 29.9 % (37.0-47.0); Mean Corp Hgb Conc. 33.4 g/dL (33.0-37.0); Mean Corpuscular Hgb 31.1 pg (27.0-31.0); Mean Corpuscular Volume 92.9 fL (81.0-99.0); Mean Platelet Volume 10.5 fL (7.4-10.4); Platelet Count 175 10^3/uL (130-400); Red Blood Cell Count 3.22 10^6/uL (4.20-5.40); Red Cell Dist. Width 14.4 % (11.5-14.5); White Blood Cell Count 9.5 10^3/uL (4.8-10.8)
--- NOTE | 2024-06-22 07:46 | CON.INTV ---
Consultation
Consultation Request
Date/Time Consultation Requested: 06/22
Date/Time Consultation Performed: 06/22
Reason for Consultation: Flu, hypoxia, vent dependent respiratory failure
Medical History
-
History of Present Illness:
History obtained from the at the bedside and reviewing hospital records. Patient is an 88-year-old female who was brought to [facility] because of increased shortness of breath. Patient apparently had ambulance called earlier in
the day but patient refused to transport. Second call, patient was in respiratory distress, saturation 70s. Increased to 82% with nonrebreather. Patient was minimally responsive. Brought to [facility] where upon arrival afebrile, pulse
72, breathing at 22, blood pressure 145/60, 57%. Patient was intubated in the ED. Influenza A positive. She was given 1 dose of Lasix, 1 dose of aspirin due to elevated troponin. Creatinine 1.7, white count 18.9. Patient admitted to ICU for
further management. Patient also did not get Tamiflu in the ED
According to the , patient was feeling well prior to Monday without issues
.
PMH: Hypertension, atrial fibrillation, history of breast cancer, colon cancer, hypothyroidism, vascular dementia. History of partial colectomy, lumpectomy. Patient sees pulmonary at [place], gets aspiration pneumonia once a year
Past Medical History
Past Medical History: None (See above)
Past Surgical History: None (See above)
Social History
Tobacco: Non-smoker
Alcohol: None
Drug: None
Personal:
Living: With Family
Family History
Family History: Reviewed & Not Pertinent
Allergies / Home Medications
Allergies
Allergy/AdvReac Type Severity Reaction Status Date / Time
codeine Allergy Rash Verified 06/22/24 01:34
Home Medications
�Medication �Instructions �Recorded �Confirmed �Last Taken �Type
amiodarone 200 mg tablet 200 mg PO DAILY 06/22/24 06/22/24 Unknown History
amoxicillin 500 mg-potassium 1 tab PO BID 06/22/24 06/22/24 Unknown History
clavulanate 125 mg tablet
(Augmentin)
apixaban 2.5 mg tablet (Eliquis) 2.5 mg PO BID 06/22/24 06/22/24 Unknown History
benzonatate 100 mg capsule 100 mg PO TID PRN cough 06/22/24 06/22/24 Unknown History
bisoprolol fumarate 10 mg tablet 10 mg PO DAILY 06/22/24 06/22/24 Unknown History
citalopram 10 mg tablet 10 mg PO DAILY 06/22/24 06/22/24 Unknown History
donepezil 5 mg tablet 5 mg PO HS 06/22/24 06/22/24 Unknown History
doxycycline hyclate 100 mg tablet 100 mg PO BID 06/22/24 06/22/24 Unknown History
famotidine 20 mg tablet (Pepcid) 20 mg PO DAILY 06/22/24 06/22/24 Unknown History
levothyroxine 112 mcg tablet 112 mcg PO DAILY 06/22/24 06/22/24 Unknown History
losartan 100 mg tablet 100 mg PO DAILY 06/22/24 06/22/24 Unknown History
olanzapine 5 mg tablet (Zyprexa) 5 mg PO DAILY 06/22/24 06/22/24 Unknown History
Review of Systems
-
All other systems: Negative unless noted (Patient sees pulmonary at [place], gets pneumonia once a year. Aspiration risk)
Vitals / Labs / Diagnostic Testing
Vital Signs
Temp Pulse Resp BP Pulse Ox
97.8 F 68 22 146/81 100
06/22/24 00:25 06/22/24 07:19 06/22/24 07:19 06/22/24 05:00 06/22/24 07:23
Lab Data
06/22/24 07:33
06/22/24 06:21
Laboratory Results
06/22/24 06/22/24
00:57 06:24
PT 16.7 H
INR 1.30
APTT Cancelled
pH 7.48 H
pCO2 29 L
pO2 256 H
HCO3 21.6
O2 Delivery Level Vent
Microbiology
06/22/24 00:35 Nasal Swab Influenza Types A & B (MIGUEL) - Final
Influenza A Positive, NAAT
Diagnostic Testing:
Physical Exam
-
HEENT: Normocephalic, Anicteric and Other (Cachectic)
Cardiovascular: S1/S2, Regular Rhythm, Murmur (n) and Rub (n)
Respiratory: Wheeze (n), Rales (n), Rhonchi (n), Non-Labored Respirations and Other (ET tube)
GI: Soft and Non Distended
Neurology: Other (Sedated)
Skin: Other (Scattered ecchymoses)
General: Comfortable
Assessment
-
88-year-old female with history of atrial fibrillation, vascular dementia, breast cancer, colon cancer, presents with increased shortness of breath since 06/21. Patient refused transport upon first call to 911 but second call, was noted to be
saturating in the 70s, intubated in the ED. Influenza A positive, troponin positive. Given aspirin in the ED, Tamiflu via feeding tube. Patient was also given vancomycin and Zosyn, admitted to ICU for further management
Acute hypoxic respiratory failure
Saturation in the 70s
Intubated in ED 06/21
Hypotension, likely septic shock
Requiring pressors
Elevated troponin
Acute renal insufficiency, creatinine 1.6
Baseline not known
Elevated lactate
Acute transaminitis
Abnormal EKG
First-degree AV block
Conditions present prior to admission
History of recurrent pneumonia
Suspected aspiration syndrome
Follows pulmonary at [facility] ([facility])
History of atrial fibrillation
Amiodarone therapy
On Eliquis
Hypothyroidism
History of vascular dementia
Plan/recommendations
At this time, patient remains critically ill. Developed hypotension this morning, systolic pressure in the 70s.
No auto PEEP, no air trapping noted
Seem to have responded to fluid bolus.
Creatinine 1.7, elevated proBNP noted although does not appear to be in heart failure on exam
Heparin therapy started per primary service for elevated troponin
Echocardiogram completed at the bedside
Cardiology also following
Influenza A positive
Moving forward
Continue with volume-cycled ventilation
AC 16/450/5/100% wean down to 40% as able
Ppl 28, Pplat 23
Maintain sedation
Head of bed elevated, aspiration precautions
Patient also appears to have aspiration syndrome per discussion with at the bedside, pneumonia every year
Continue with vancomycin/Zosyn for now
Remains on Tamiflu
Daily chest x-ray
Repeat ABG and appropriate vent adjustments for alkalemia
Elevated troponin noted
Echocardiogram completed. Cardiology following
Received aspirin in the ED
Medical management for now
Patient also on Eliquis 2.5 mg twice a day chronically for atrial fibrillation
Amiodarone therapy noted
Follow creatinine, I's and O's
Beckman catheter
Norepinephrine to maintain systolic pressure greater than 90s
IV fluids
Transaminitis noted
Follow-up
Likely secondary to shock, sepsis
Abdominal ultrasound per primary service
Will place small bore feeding tube
Start nutrition
Reviewed with critical care nursing, cardiology, primary service
Reviewed with at bedside
TCCT 35 min
[2024-06-22 07:57] LABS: APTT 41.1 Sec (23.4-35.0)
[2024-06-22] MEDS: LEVOPHED 250 IV ×2 (08:00→17:39)
[2024-06-22] MEDS: NSS (PRESERVATIVE FREE) 10 ML IV (08:02)
[2024-06-22] MEDS: PROTONIX IV 40 MG IV (08:02)
[2024-06-22] MEDS: ZOSYN 50 IV ×4 (08:02→23:08)
--- NOTE | 2024-06-22 08:38 | PHA.VAN.IN ---
Assessment
- Assessment
Renal Function: Unknown baseline
Renal Function may be Overestimated due to: age
Concomitant Antimicrobials: zosyn
Plan
- Plan
Initial / Loading Dose: 1250mg
Maintenance Regimen: prn by level
Monitoring: random 06/23 in am
MRSA Screen: Ordered per protocol
Pharmacokinetics Vancomycin I
- -
Patient Age: 88
Patient Sex: Female
Vancomycin Day #: 1
Indication: Pulmonary/Respiratory
Requesting Provider: Dr. Cantrell
Height / Weight:
Height 5 ft 3 in
Actual Weight 52.5 kg
IBW in k.4
- Vital Signs / Lab Results
Temp Pulse Resp BP Pulse Ox
97.8 F 68 22 146/81 100
06/22/24 00:25 06/22/24 07:19 06/22/24 07:19 06/22/24 05:00 06/22/24 07:23
Lab Results - Hematology
06/22/24 06/22/24 06/22/24
00:35 06:21 07:33
WBC 18.9 H 10.7 9.5
Lab Results - Chemistry
06/22/24 06/22/24
00:35 06:21
BUN 36 H 37 H
Creatinine 1.7 H 1.6 H
Estimated Creat Clear 20
Albumin 4.6 4.1
06/22/24 06/22/24
00:57 05:35
Lactic Acid 3.7 H 2.8 H
Microbiology Results
06/22/24 00:35 Influenza Types A & B (MIGUEL) - Final
Nasal Swab Influenza A Positive, NAAT
[2024-06-22] MEDS: VANCOCIN 275 MG IV (08:48)
[2024-06-22] MEDS: HEPARIN 25000 UNITS/250 ML IV (08:58)
--- NOTE | 2024-06-22 08:58 | W.PN.HOSP.TC ---
Today's Communication/Plan
-
see PN
Assessment / Plan
Assessment / Plan
88yo F with demetia, Afib, hypothyroidism, HTN brought with 1 day of SOB, intubated for Influenza A on 06/22/24. Developed septic shock. ALso concern for NSTEMI
A/P:
#Acute hypoxic respiraotry failre 2/2 Influenza A cannot rule out superimposed bacterial pneumonia with septic shock
Vent mgmt, sedation mgmt as per Construction Helper
wean off Pressors
Vamco/Zosyn
Tamiflu
Bcx
Resp culture
#NSTEMI
#Afib, permanent
#Elevated proBNP
No clinical signs of CHF - pending echo
tremd trops
ASA, heparin drip
EKG with ventricular rhythm
Card consult
cont Amiodarome
#Essential HTN
hold antihypertensives with shock
#Dementia, unspecified
cont meds when appropriate
#mild anemia
follow h&h
outpatient anemia w/u
#MELINDA vs CKD
no prior Cr
follow BMP
#Transaminitis 2/2 shock
Follow LFT
reasonable to do RUQ US
#Hypothyroidism
TSH WNL
cont synthroid
DVT ppx on hep drip
Full code
I have spent at least 58min reviewing chart, test results, communication with consultants and direct patient care
Anticipated Discharge: > 48 hours
Subjective/Interval History
-
Date of Service: June 22, 2024
Objective Data
-
Labs:
Laboratory Results
06/22/24 06/22/24 06/22/24
00:35 00:57 06:21
WBC 18.9 H 10.7
Hgb 11.0 L 11.2 L
Hct 35.5 L 30.9 L
Plt Count 245 190 D
PT 16.7 H
INR 1.30
APTT Cancelled
HCO3
Sodium 139 139
Potassium 4.4 4.0
Chloride 105 102
Carbon Dioxide 17 L 20 L
BUN 36 H 37 H
Creatinine 1.7 H 1.6 H
Glucose 241 H 108 H
Calcium 9.0 8.5
Total Bilirubin 1.2 1.1
AST 98 H 143 H
ALT 58 H 75 H
Alkaline Phosphatase 179 H 153 H
06/22/24 06/22/24 06/22/24
06:24 07:09 07:33
WBC 9.5
Hgb 10.0 L
Hct 29.9 L
Plt Count 175
PT
INR
APTT Pending 41.1 H
HCO3 21.6
Sodium
Potassium
Chloride
Carbon Dioxide
BUN
Creatinine
Glucose
Calcium
Total Bilirubin
AST
ALT
Alkaline Phosphatase
Vital Signs:
Vital Signs
Temp Pulse Resp BP Pulse Ox
101.1 F H 68 22 146/81 40
06/22/24 08:46 06/22/24 07:19 06/22/24 07:19 06/22/24 05:00 06/22/24 08:41
I&O
06/21/24 06/22/24 06/23/24
06:59 06:59 06:59
Intake Total 9.9 / 16.5 578.2 / 578.2
Output Total 425 / 475 125 / 125
Balance -415.1 / -458.5 453.2 / 453.2
Review of Systems
-
Unable to obtain full review of systems at this time due to: Patient Intubation
Physical Exam
-
General: Intubated
HEENT: Moist Mucous Membranes
Respiratory: Clear to Auscultation; Negative Wheezes
Cardiac: Irregular Rhythm
GI: Soft and Nondistended
Musculoskeletal: No Clubbing, No Cyanosis and No Edema
Neuro: Sedated
Psych: Calm
[2024-06-22] MEDS: VENTOLIN NEBULES INH (08:59)
[2024-06-22] MEDS: PACERONE TUBE (09:16)
--- NOTE | 2024-06-22 09:19 | PTCARENOTE ---
Addendum entered by Carol Olvera RN 06/22/24 09:30:
pt given tylenol by previous shift and ice packs placed for temp.
Original Note:
pt received from previous rn- ett to vent see settings as charted- pt on propofol for sedation, moves extremities, does not follow commands, pt restless at times. nsr to sinus carmita on monitor- ok per cardiology to hold am amio dose. ekg completed.
labs sent per order. heparin gtt initiated, levophed on for hypotension. ivf bolus and fluids infusing per order. iv team consulted for picc line placement. Dr. Gupta at bedside- plan of care discussed with - verbalized
understanding. all safety precautions in place.
[2024-06-22] MEDS: NSS 1000 IV ×3 (10:04→22:52)
--- NOTE | 2024-06-22 10:05 | CM ---
CM following re: discharge planning.
Reviewed pt's chart, met with pt and pt's at bedside.
Pt is an 88 year old female, admitted with primary dx of Acute hypoxic respiratory failure 2/2 Influenza A, intubated in ED, remains intubated.
Per , [place] the [place] [facility] [place], pt has 2 children and 2 stepchildren. Per pt ambulates with his assistance, has a walker and does not use it, known to Nicanor RODARTE , has 10 hours of private
caregiver services daily. pt's expressed his desire that pt will be able to return back home at discharge.
PCP: Dr. Oscar
Pharmacy: [facility].
D/C plan: uncertain at this time and will depend on pt's progress.
CM will follow with discharge plan updates as hospitalization progresses
[2024-06-22] MEDS: VENTOLIN NEBULES 2.5 MG INH ×3 (11:00→19:47)
[2024-06-22] MEDS: SUBLIMAZE 50 MCG IV ×4 (11:25→20:57)
[2024-06-22 12:31] LABS: B.E. -3.3 mmol/L; HCO3 18.7 mmol/L (21-28); O2 Saturation % 97.8 % (94-98); PCO2 24 mmHg (32-35); PO2 105 mmHg (83-108)
--- NOTE | 2024-06-22 12:38 | VATNOTE ---
Picc order in place. Able to access the brachial vein. picc able to be advanced however no BR. DR. Gupta made aware . Picc exchanged to midline per MD. Will reassess the need for picc in am.
--- NOTE | 2024-06-22 13:55 | PTCARENOTE ---
iv team in to place left upper arm midline- flushes with good blood return. pt continues on low dose levo. restless at times, does not follow commands. assessment unchanged
[2024-06-22 15:42] LABS: APTT 76.6 Sec (23.4-35.0)
[2024-06-22] MEDS: TYLENOL ORAL SOLUTION TUBE (17:01)
[2024-06-22] MEDS: SUBLIMAZE 100 IV (19:33)
--- NOTE | 2024-06-22 20:00 | PTCARENOTE ---
assumed care, intubated not responding CPOT 5 refer to MAR, B/L wrist restraints, minimal movement of extremities, Pupils 2, NS on the monitor, pulses weak, B/L scds, ASV 100/5/40% coarse throughout, BSx4 hypoactive OGT 45cm green output, temp
sensing lomeli yellow output, prophylactic sacral and heel foams, 22 R wrist, 20 RFA, L midline, fluids, hep, prop, levo, fent, and son @ bedside updated, otherwise refer to documentation.
[2024-06-22 22:58] LABS: APTT 174.2 Sec (23.4-35.0)
--- NOTE | 2024-06-22 23:51 | PTCARENOTE ---
systems reviewed, Tylenol given for fever per order, CHG bath, Hep placed on hold restart in an hour, levo turned off, otherwise refer to documentation.
[2024-06-23] VITALS (94 sets, daily range): BP systolic 71–135; BP diastolic 41–84; BMI 21.2
[2024-06-23] MEDS: DIPRIVAN 100 IV ×3 (00:47→17:04)
[2024-06-23] MEDS: TYLENOL ORAL SOLUTION 650 MG TUBE (03:21)
[2024-06-23 04:21] LABS: ALT (SGPT) 127 U/L (0-35); AST (SGOT) 206 U/L (14-36); Albumin 3.1 g/dl (3.5-5.0); Alkaline Phosphatase 157 U/L (38-126); Blood Urea Nitrogen 32 mg/dl (7-17); Calcium 7.7 mg/dl (8.4-10.2); Carbon Dioxide 20 mmol/L (22-30); Chloride 110 mmol/L (98-107); Estimated Creatinine Clearance 20 ml/min; Glucose 89 mg/dl (70-99); Hematocrit 29.4 % (37.0-47.0); Hemoglobin 9.5 g/dL (12.0-16.0); Mean Corp Hgb Conc. 32.3 g/dL (33.0-37.0); Mean Corpuscular Hgb 30.6 pg (27.0-31.0); Mean Corpuscular Volume 94.8 fL (81.0-99.0); Mean Platelet Volume 11.2 fL (7.4-10.4); Phosphorus 4.3 mg/dl (2.5-4.5); Platelet Count 160 10^3/uL (130-400); Potassium 3.6 mmol/L (3.5-5.1); Red Cell Dist. Width 14.6 % (11.5-14.5); Sodium 144 mmol/L (135-145); Total Bilirubin 0.8 mg/dl (0.2-1.3); Total Protein 5.6 g/dl (6.3-8.2); eGFR 30.83
[2024-06-23 04:26] LABS: Vancomycin Random 11.5 ug/ml
[2024-06-23] MEDS: SUBLIMAZE 50 MCG IV (04:36)
[2024-06-23 05:13] LABS: B.E. -7.9 mmol/L; HCO3 17.6 mmol/L (21-28); O2 Saturation % 95.3 % (94-98); PCO2 35 mmHg (32-35); PO2 74 mmHg (83-108); pH 7.31 (7.35-7.45)
[2024-06-23] MEDS: SYNTHROID 112 MCG TUBE (05:38)
[2024-06-23] MEDS: ZOSYN 50 IV ×4 (05:38→23:41)
[2024-06-23] MEDS: MIRALAX 17 GRAMS TUBE (07:14)
[2024-06-23] MEDS: PROTONIX IV 40 MG IV (07:14)
[2024-06-23] MEDS: PACERONE TUBE (07:14)
[2024-06-23] MEDS: ASPIRIN 300 MG RECTAL (07:14)
[2024-06-23] MEDS: NSS (PRESERVATIVE FREE) 10 ML IV (07:14)
[2024-06-23] MEDS: TAMIFLU 30 MG TUBE (07:15)
[2024-06-23] MEDS: NSS 1000 IV ×3 (07:18→21:10)
--- NOTE | 2024-06-23 07:40 | W.PN.INTV ---
Today's Communication / Plan
Recommendations
Amiodarone for rate control
Replete lytes
IV Tylenol for fevers given NSVT
IV fluid bolus
Continue antibiotics, Tamiflu
Daily x-ray, ABG
Pressors as needed
Remains on heparin
Assessment
-
88-year-old female with history of atrial fibrillation, vascular dementia, breast cancer, colon cancer, presents with increased shortness of breath since 06/21. Patient refused transport upon first call to 911 but second call, was noted to be
saturating in the 70s, intubated in the ED. Influenza A positive, troponin positive. Given aspirin in the ED, Tamiflu via feeding tube. Patient was also given vancomycin and Zosyn, admitted to ICU for further management
Acute hypoxic respiratory failure
Saturation in the 70s
Intubated in ED 06/21
Hypotension, likely septic shock
Requiring pressors
Elevated troponin
Acute renal insufficiency, creatinine 1.6
Baseline not known
Elevated lactate
Acute transaminitis
Abnormal EKG
First-degree AV block
Atrial fibrillation/atrial flutter
Conditions present prior to admission
History of recurrent pneumonia
Suspected aspiration syndrome
Follows pulmonary at [facility] ([facility])
History of atrial fibrillation
Amiodarone therapy
On Eliquis
Hypothyroidism
History of vascular dementia
Plan/recommendations
At this time, patient remains critically ill. Marginal blood pressure noted, on and off norepinephrine, currently off
Episode of NSVT earlier this morning
Additional amiodarone bolus given, amiodarone drip started
Creatinine 1.6, elevated proBNP noted although does not appear to be in heart failure on exam
Heparin therapy started per primary service for elevated troponin
Echocardiogram today shows normal biventricular function, underfilled LV, PA pressure 40
Influenza A positive
Moving forward
Continue with volume-cycled ventilation
Was on ASV 120%, transition to assist-control with episode of A-fib with RVR
AC 16/450/5/40%
Airway pressures adequate
Maintain sedation
Head of bed elevated, aspiration precautions
Patient also appears to have aspiration syndrome per discussion with at the bedside, pneumonia every year
Continue with vancomycin/Zosyn for now
Remains on Tamiflu
Daily chest x-ray
Daily ABG
Elevated troponin noted
Echocardiogram completed. Cardiology following
Received aspirin in the ED
Medical management for now
Patient also on Eliquis 2.5 mg twice a day chronically for atrial fibrillation. Heparin therapy started
Amiodarone therapy noted
Additional IV fluid bolus will be given given underfilled LV
Replete electrolytes
Follow creatinine, I's and O's
Beckman catheter
Norepinephrine to maintain systolic pressure greater than 90s
IV fluids
Transaminitis noted
Follow-up
Likely secondary to shock, sepsis
Abdominal ultrasound unremarkable
OG tube in place
Continue nutrition, tolerating
Reviewed with critical care nursing, cardiology, primary service
TCCT 35 min
Subjective Dataa
Subjective Data
Date of Service:
Date of Service: June 23, 2024
Subjective:
Patient remains critically ill. Continues to have fevers, developed atrial fibrillation with rapid ventricular response earlier this morning, few bouts of NSVT. Off norepinephrine. Remains sedated with propofol/fentanyl. Remains on heparin drip
Objective Data
Data Reviewed
Vital Signs / I&O / Oxygen:
Vital Signs
Temp Pulse Resp BP Pulse Ox
101.1 F H 67 18 94/64 96
06/23/24 07:00 06/23/24 06:00 06/23/24 06:00 06/23/24 06:00 06/23/24 07:29
Intake and Output
06/22/24 06/23/24 06/24/24
06:59 06:59 06:59
Intake Total 9.9 / 16.5 3850.2 / 4022.1 171.9 / 171.9
Output Total 425 / 475 1235 / 1240 5 / 5
Balance -415.1 / -458.5 2615.2 / 2782.1 166.9 / 166.9
SaO2 [ASV] 96
SaO2 [A/C] 100
SaO2 95
Physical Exam
General: Comfortable, Other (Cachectic) and Other (Left upper extremity midline)
HEENT: Normocephalic and Anicteric
Cardiovascular: S1-S2, Irregular Rhythm, Murmur (n) and Rub (n)
Respiratory: Wheeze (n), Crackles (n), Rhonchi (n), Non-Labored Respirations and ET Tube
GI: Soft, Non Distended and Non Tender
Neurology: Lethargic (Sedated but does spontaneously move extremities)
Skin: Cyanosis (n), Jaundice (n), Rash (n) and Bruising (Few)
Labs/Micro/Reports
Lab Data
06/23/24 03:30
06/23/24 03:30
Laboratory Results
06/22/24 06/22/24 06/22/24
07:09 07:33 12:22
APTT Cancelled 41.1 H
pH 7.50 H
pCO2 24 L
pO2 105
HCO3 18.7 L
O2 Delivery Level
06/22/24 06/22/24 06/23/24
15:13 22:33 05:04
APTT 76.6 H 174.2 H*
pH 7.31 L
pCO2 35
pO2 74 L
HCO3 17.6 L
O2 Delivery Level
06/23/24
05:44
APTT 108.0 H
pH
pCO2
pO2
HCO3
O2 Delivery Level
Microbiology
06/22/24 10:38 Tracheal Aspirate Gram Stain - Preliminary
06/22/24 00:35 Nasal Swab Influenza Types A & B (MIGUEL) - Final
Influenza A Positive, NAAT
[2024-06-23] MEDS: VENTOLIN NEBULES 2.5 MG INH ×2 (07:41→11:15)
--- NOTE | 2024-06-23 07:53 | PTCARENOTE ---
pt received from previous rn- ett to vent- see settings as charted. remains on propofol and fentanyl for sedation, pt restless at times, does not follow commands. heparin and ivf continue as per order. nsr with 1st degree on monitor. ogt auscultated
for placement. lomeli draining yellow urine. turned and repositioned, am and oral care provided. all safety precautions in place.
[2024-06-23] MEDS: PACERONE 100 MG TUBE ×2 (08:08→09:22)
--- NOTE | 2024-06-23 08:13 | PHA.VAN.FU ---
Vancomycin Assessment / Plan
- Assessment
Renal Function: Stable
WBC's are: WNL
In the past 24 hrs, patient has been: Febrile (102.5F)
Concomitant Antimicrobials: ZOSYN
- Assessment - Therapeutic Drug Monitoring
Random Level: 11.5
- Dosing Plan
Dosing by Level: Re-dose today (500MG)
- Monitoring Plan
Random Level: 12 IN AM
- Follow Up
Pharmacy will continue to follow.
Vancomycin Follow UP
- -
Patient Age: 88
Patient Sex: Female
Vancomycin Day #: 2
Indication: Pulmonary/Respiratory
Requesting Provider: Dr. Cantrell
Height / Weight:
Height 5 ft 3 in
Actual Weight 54.3 kg
IBW in k.4
- Vital Signs / Lab Results
Temp Pulse Resp BP Pulse Ox
101.1 F H 81 18 94/64 40
06/23/24 07:00 06/23/24 08:08 06/23/24 06:00 06/23/24 06:00 06/23/24 07:49
Lab Results - Hematology
06/22/24 06/22/24 06/22/24
00:35 06:21 07:33
WBC 18.9 H 10.7 9.5
06/23/24
03:30
WBC 10.0
Lab Results - Chemistry
06/22/24 06/22/24 06/23/24
00:35 06:21 03:30
BUN 36 H 37 H 32 H
Creatinine 1.7 H 1.6 H 1.6 H
Estimated Creat Clear 20 20
Albumin 4.6 4.1 3.1 L
06/22/24 06/22/24
00:57 05:35
Lactic Acid 3.7 H 2.8 H
Microbiology Results
06/22/24 07:33 Blood Culture - Preliminary
Blood/Venous No Growth in 24 hours- Final report to follow
06/22/24 07:33 Blood Culture - Preliminary
Blood/Venous No Growth in 24 hours- Final report to follow
06/22/24 10:38 Gram Stain - Preliminary
Tracheal Aspirate
06/22/24 00:35 Influenza Types A & B (MIGUEL) - Final
Nasal Swab Influenza A Positive, NAAT
Therapeutic Drug Monitoring
Random Vancomycin 11.5 ug/ml 06/23/24 03:30
--- NOTE | 2024-06-23 08:54 | PTCARENOTE ---
pt with 10 beat run of vtach, runs of afib at times- converts to sinus. Dr. Gupta and Dr. Rutledge notified. see mar for orders
[2024-06-23 09:24] LABS: Segmented Neutrophils 78 % (42-75)
[2024-06-23 09:25] LABS: Absolute Neutrophils -Man Diff 8.9 10^3/uL (1.4-6.5); Band Neutrophils 11 % (0-3); Lymphocytes 9 % (20-51); Monocytes 2 % (2-9); Normal RBC Morphology Yes; Platelets Checked Yes; Total Cells Counted 100
[2024-06-23] MEDS: VANCOCIN HCL 500 MG 100 IV (09:29)
[2024-06-23] MEDS: KCL 270 MEQ IV (09:31)
[2024-06-23] MEDS: OFIRMEV 100 IV (09:39)
[2024-06-23] MEDS: CORDARONE 518 MG IV (10:00)
[2024-06-23] MEDS: SUBLIMAZE 100 IV (10:26)
--- NOTE | 2024-06-23 11:18 | PTCARENOTE ---
Addendum entered by Carol Olvera RN 06/23/24 11:28:
per Dr. Rutledge infuse amio gtt and give po via ogt.
Original Note:
amio gtt started, levophed restarted for hypotension. k rider infusing as per order. see mar for further details. turned and repositioned. assessment unchanged
--- NOTE | 2024-06-23 11:52 | W.PN.HOSP.TC ---
Today's Communication/Plan
-
cont heparin drip and Abx
Assessment / Plan
Assessment / Plan
88yo F with dementia, Afib, hypothyroidism, HTN brought with 1 day of SOB, intubated for Influenza A on 06/22/24. Developed septic shock. Also concern for NSTEMI
A/P:
#Acute hypoxic respiratory failre 2/2 Influenza A cannot rule out superimposed bacterial pneumonia with septic shock
Vent mgmt, sedation mgmt as per Sales Force Developer
wean off Pressors
Vamco/Zosyn
Tamiflu
Bcx
Resp culture
#NSTEMI
#Afib, permanent
#Elevated proBNP
No clinical signs of CHF - pending echo
tremd trops
ASA, heparin drip
EKG with ventricular rhythm
Card consult
cont Amiodarone
Echo: EF: 55-60%, moderate TR, pulmonary HTN
#Essential HTN
hold antihypertensives with shock
#Dementia, unspecified
cont meds when appropriate
#mild anemia
follow h&h
outpatient anemia w/u
#MELINDA vs CKD
no prior Cr
follow BMP
#Transaminitis 2/2 shock
Follow LFT
RUQ US: Gallbladder wall thickening/edema likely in the setting of systemic congestion. No sonographic evidence for cholelithiasis or acute cholecystitis
#Hypothyroidism
TSH WNL
cont synthroid
DVT ppx on hep drip
Full code
I have spent at least 58min reviewing chart, test results, communication with consultants and direct patient care
Anticipated Discharge: > 48 hours
Subjective/Interval History
-
Date of Service: June 23, 2024
Objective Data
-
Labs:
Laboratory Results
06/23/24 06/23/24 06/23/24
03:30 05:04 05:44
WBC 10.0
Hgb 9.5 L
Hct 29.4 L
Plt Count 160
APTT 108.0 H
HCO3 17.6 L
Sodium 144
Potassium 3.6
Chloride 110 H
Carbon Dioxide 20 L
BUN 32 H
Creatinine 1.6 H
Glucose 89
Calcium 7.7 L
Total Bilirubin 0.8
AST 206 H
ALT 127 H
Alkaline Phosphatase 157 H
06/23/24
12:30
WBC
Hgb
Hct
Plt Count
APTT Pending
HCO3
Sodium
Potassium
Chloride
Carbon Dioxide
BUN
Creatinine
Glucose
Calcium
Total Bilirubin
AST
ALT
Alkaline Phosphatase
Vital Signs:
Vital Signs
Temp Pulse Resp BP Pulse Ox
97.7 F 113 16 87/44 97
06/23/24 11:27 06/23/24 11:21 06/23/24 11:21 06/23/24 10:00 06/23/24 11:21
I&O
06/22/24 06/23/24 06/24/24
06:59 06:59 06:59
Intake Total 9.9 / 16.5 3850.2 / 4022.1 699.5 / 699.5
Output Total 425 / 475 1235 / 1240
Balance -415.1 / -458.5 2615.2 / 2782.1 674.5 / 674.5
Review of Systems
-
History Source: Patient
All other systems: Reviewed and negative
Physical Exam
-
General: Intubated
Respiratory: Clear to Auscultation
Cardiac: Irregular Rhythm
Musculoskeletal: No Clubbing, No Cyanosis and No Edema
Neuro: Sedated
Psych: Calm
--- NOTE | 2024-06-23 11:56 | W.PN.CARDCBS ---
Today's Communication / Plan
-
IV and p.o. amiodarone
Finish 48 hours of heparin and I have no objection to switching back to apixaban via tube
I have no objection to IV fluid hydration given echo findings
I suspect much of her constellation of signs and symptoms are related to her flu a infection
Will follow with you
Prognosis guarded
Impression / Plan
-
Quarter Lining Smoother: Dr. Hahn ([facility])
Impression:
Presented w/ respiratory distress
VDRF
Influenza A Pneumonia
Sepsis
Elevated troponin
Paroxysmal atrial fibrillation
Chronic amiodarone therapy
Chronic OAC with Eliquis
Hypertension
Hypothyroidism
h/o breast cancer
h/o colon cancer
Vascular dementia
Plan:
-Presented with respiratory distress. Intubated in ER. Remains intubated and sedated. Admitted with sepsis due to Influenza A pneumonia. Respiratory failure due to flu A
-Continue management of influenza pneumonia per primary service.
-Given troponin elevation I suspect this is related to low-level myocarditis from the flu a virus.
-Echocardiogram demonstrates normal ejection fraction with underfilled RV and LV today and I recommend to the prior team that they could give her volume to support blood pressure.
-No h/o CAD. Agree w/ heparin and aspirin. After 48 hours I have no objection to stopping heparin.
-Unsurprisingly she now has atrial fibrillation which is paroxysmal and elevated rates. She has atrial dilation on echo. She is on p.o. via tube and IV amiodarone for rhythm and rate control. Discussed plan of care with bedside nursing.
-OP BP medications on hold.
-Increased amiodarone to 200 mg 3 times daily
-TSH WNL. Continue levothyroxine.
-Vent management per livestock handler.
HPI: Liza is an 88-year-old female with past medical history of paroxysmal atrial fibrillation maintained on Eliquis and amiodarone, hypertension, hypothyroidism, breast cancer, colon cancer, and vascular dementia. She presented to ER for
evaluation of respiratory distress. History is obtained from as patient is intubated and sedated. He reports they began feeling unwell earlier this week with flulike symptoms. She was given antibiotics and cough medicine by PCP. She
continued to feel poorly. He had EMS come out to evaluate her around 5 PM and reportedly she was stable with normal pulse ox and did not require hospitalization. They went to sleep later that night and when he woke up around 11 PM, he noted that
her breathing sounded labored, so he then called EMS and pulse ox was noted to be in the 70s and she was placed on nonrebreather. On arrival to the ER, she was markedly hypoxemic and in severe distress and required intubation. She remains
intubated and sedated at this time and has been admitted to the ICU with influenza A pneumonia and sepsis. Elevated troponin noted, trending up to 1.52 resulting in cardiology consultation. Has been reports no history of coronary artery disease or
prior stenting. He does note that she had a an echo within the past few months and has never been told that she has a weakened heart muscle
Progress Note - Quarter Lining Smoother
Subjective
Date of Service: June 23, 2024
Remains intubated and sedated
Objective
Labs:
06/23/24 03:30
06/23/24 03:30
Labs
Hgb 9.5 g/dL (12.0-16.0) L 06/23/24 03:30
Hct 29.4 % (37.0-47.0) L 06/23/24 03:30
Plt Count 160 10^3/uL (130-400) 06/23/24 03:30
PT 16.7 Sec (11.4-14.6) H 06/22/24 00:57
INR 1.30 06/22/24 00:57
APTT 108.0 Sec (23.4-35.0) H 06/23/24 05:44
Sodium 144 mmol/L (135-145) 06/23/24 03:30
Potassium 3.6 mmol/L (3.5-5.1) 06/23/24 03:30
BUN 32 mg/dl (7-17) H 06/23/24 03:30
Creatinine 1.6 mg/dL (0.6-1.0) H 06/23/24 03:30
Glucose 89 mg/dl (70-99) 06/23/24 03:30
Troponins
06/22/24 06/22/24 06/22/24
00:35 06:21 15:13
Troponin I 0.735 H* 1.520 H* D 1.280 H*
06/23/24
03:30
Troponin I 1.090 H*
Vital Signs and I&O:
Vital Signs
Temp Pulse Resp BP Pulse Ox
97.7 F 113 16 87/44 98
06/23/24 11:27 06/23/24 11:21 06/23/24 11:21 06/23/24 10:00 06/23/24 11:55
Vital Signs
Temp Pulse Resp BP Pulse Ox
97.7 F 113 16 87/44 98
06/23/24 11:27 06/23/24 11:21 06/23/24 11:21 06/23/24 10:00 06/23/24 11:55
Intake & Output
06/21/24 06/22/24 06/23/24 06/24/24
06:59 06:59 06:59 06:59
Intake Total 9.9 / 16.5 3850.2 / 4022.1 1043.9 / 1043.9
Output Total 425 / 475 1235 / 1240 40 / 40
Balance -415.1 / -458.5 2615.2 / 2782.1 1003.9 / 1003.9
Physical Exam
Physical Exam
����Physical Exam
���������������������General:�In respiratory distress critically ill
���������������������������Neck:��supple. no meningeal signs. normal psoterior pharynx
������������������������
���������������������������Heart:�Cor irregularly irregular
��������������������������Lungs: ��no acute respiratory distress. clear bilaterally
����������������������Abdomen:�normal bowel sounds. not tender. no CVAT
��������������������������Neuro:��alert and oriented. no focal neurological deficits
������������������������������Skin: ��no rash
�����������������������Psychiatric:�well kept. interactive and cooperative
�����������������������Extremities:��no edema. no calf tenderness. negative homans. good distal pulses
��
�
[2024-06-23 12:32] LABS: APTT 169.7 Sec (23.4-35.0)
--- NOTE | 2024-06-23 12:34 | PTCARENOTE ---
Dr. Rutledge at bedside- ok for pt hr to fluctuate 110s-130s, remains on amio gtt. ivfb infusing as per order.
--- NOTE | 2024-06-23 15:46 | SUR.PHASEI ---
assessment unchanged. tube feeds continue- pt tolerating. turned and repositioned. remains on AC on vent. gtts continue.
[2024-06-23] MEDS: PACERONE 200 MG TUBE ×2 (17:04→21:10)
[2024-06-23] MEDS: LEVOPHED 250 IV (17:04)
--- NOTE | 2024-06-23 20:00 | PTCARENOTE ---
Rec'd pt with wrists restrained, TILA at 2mm, sluggish, opens eyes to name, does not follow commands, moving arms, fent gtt at 50mic, diprivan gtt at 15mic, Afib, to keep sbp > 90 w/ levophed- presently at 4mic- see flow sheet for
titrations,amiodarone gtt at 0.5mg, heparin gtt at 250 units,weak pulses, no edema, skin warm/dry, # 7 oral ett- 22 cm- moved to left lip, ac 16, tv 450, 5 peep, 40%, sat 98, lungs w/ bibas crackles, decr in bases, hypo bowel sounds, no bm, abd
soft, no vomiting, oral [place]- rec osmolyte 1.2 - incr to goal of 35ml/hr & 25ml/hr h20 flush, lomeli draining yellow urine
[2024-06-23 20:13] LABS: APTT 101.2 Sec (23.4-35.0)
--- NOTE | 2024-06-23 23:58 | PTCARENOTE ---
sys reviewed, changes noted, CHG bath done, linens changed
[2024-06-24] VITALS (57 sets, daily range): BP systolic 81–144; BP diastolic 46–78; BMI 23.2
--- NOTE | 2024-06-24 00:10 | PTCARENOTE ---
Lotus Hicks nP given 12 lead ekg to read
[2024-06-24] MEDS: DIPRIVAN 100 IV ×3 (02:04→22:55)
--- NOTE | 2024-06-24 02:34 | PTCARENOTE ---
converted to sinus carmita, rate 55-57, amio off
[2024-06-24 03:31] LABS: Hematocrit 28.5 % (37.0-47.0); Hemoglobin 9.3 g/dL (12.0-16.0); Mean Corp Hgb Conc. 32.6 g/dL (33.0-37.0); Mean Corpuscular Hgb 30.6 pg (27.0-31.0); Mean Corpuscular Volume 93.8 fL (81.0-99.0); Mean Platelet Volume 11.5 fL (7.4-10.4); Platelet Count 167 10^3/uL (130-400); Red Blood Cell Count 3.04 10^6/uL (4.20-5.40); White Blood Cell Count 10.8 10^3/uL (4.8-10.8)
--- NOTE | 2024-06-24 03:49 | PTCARENOTE ---
sys reviewed, changes noted, ett repos on R side at 22cm, inc lg amt liquid stool, rectal trumpet to str drainage bag inserted
[2024-06-24 03:53] LABS: ALT (SGPT) 118 U/L (0-35); AST (SGOT) 201 U/L (14-36); Albumin 2.5 g/dl (3.5-5.0); Alkaline Phosphatase 144 U/L (38-126); Blood Urea Nitrogen 35 mg/dl (7-17); Calcium 7.3 mg/dl (8.4-10.2); Carbon Dioxide 15 mmol/L (22-30); Chloride 113 mmol/L (98-107); Estimated Creatinine Clearance 16 ml/min; Glucose 134 mg/dl (70-99); Magnesium 1.9 mg/dl (1.6-2.3); Phosphorus 4.3 mg/dl (2.5-4.5); Potassium 3.9 mmol/L (3.5-5.1); Sodium 141 mmol/L (135-145); Total Bilirubin 0.5 mg/dl (0.2-1.3); eGFR 23.59
[2024-06-24 04:00] LABS: Vancomycin Random 12.2 ug/ml
[2024-06-24 04:15] LABS: B.E. -12.2 mmol/L; O2 Saturation % 97.2 % (94-98); PCO2 33 mmHg (32-35); PO2 90 mmHg (83-108); pH 7.24 (7.35-7.45)
[2024-06-24 04:17] LABS: HCO3 14.1 mmol/L (21-28); O2 Therapy 40%
--- NOTE | 2024-06-24 04:25 | PTCARENOTE ---
Lotus Hicks NP aware of critical HCO3- order recd
[2024-06-24] MEDS: SODIUM BICARBONATE 1150 MEQ IV ×2 (05:03→15:50)
[2024-06-24] MEDS: ZOSYN 50 IV ×3 (05:05→17:06)
[2024-06-24] MEDS: SYNTHROID 112 MCG TUBE (05:06)
[2024-06-24] MEDS: SUBLIMAZE 100 IV (05:57)
[2024-06-24] MEDS: MIRALAX TUBE (07:11)
[2024-06-24] MEDS: PROTONIX IV 40 MG IV (07:30)
[2024-06-24] MEDS: NSS (PRESERVATIVE FREE) 10 ML IV (07:30)
[2024-06-24] MEDS: PACERONE 200 MG TUBE ×4 (07:31→21:29)
[2024-06-24] MEDS: TAMIFLU 30 MG TUBE (07:32)
--- NOTE | 2024-06-24 07:45 | PTCARENOTE ---
Received patient from plate maker. Patient is intubated/sedated. number 7 ETT at 22cm at lip AC 16/450/5/40%. Patient is not following any commands, pupils are sluggish. is at bedside, patient intermittently biting on tube. She is
saturating 98%, with minimal secretions. Patient is sinus rhythm on monitor. Levophed gtt at 2mcg, at goal BP, will attempt to turn off gtt. Patient has OGT with Osmolite tube feed at goal. Catheter for urine. patient has rectal tube, but stool
is leaking around, and is too thick, will remove. Patient is generally pale, cachectic, slightly diaphoretic. Sacral mepilex on, as well as heel foams. Will review orders, assessment as charted.
--- NOTE | 2024-06-24 08:24 | PTCARENOTE ---
while assessing patient, noticed that patient had vomited moderate amount. Turned and repositioned and patient continued to have emesis. Stopped tube feed and placed OGT to suction. 400ml of tube feed/fluid from tube. changed suction to low
intermittent suction. and will notify provider
--- NOTE | 2024-06-24 09:06 | W.PN.CARDCBS ---
Today's Communication / Plan
-
Amiodarone was increased to 200 mg TID for PAfib with RVR. Rates improved.
Transition back to Eliquis if no procedures planned. Currently on IV Heparin. For now with high residuals, TF held.
Cont med tx of nonMI trop, peak 1.5
Echo reviewed and shows preserved EF
Cont tx for Flu PNA
Cont vent management.
Impression / Plan
-
.
Postulant: Dr. Hahn ([facility])
Impression:
Presented w/ respiratory distress
VDRF
Influenza A Pneumonia
Sepsis
Elevated troponin
Paroxysmal atrial fibrillation on chronic amiodarone therapy
Chronic OAC with Eliquis
Hypertension
Hypothyroidism
h/o breast cancer
h/o colon cancer
Vascular dementia
Echo Jun 23 2024: EF 55-60% with RODRIGUEZ, PASP 35-40 mmHg
Plan:
-Presented with respiratory distress. Intubated in ER. Remains intubated and sedated. Admitted with sepsis due to Influenza A pneumonia. Respiratory failure due to flu A
Amiodarone was increased to 200 mg TID for PAfib with RVR. Rates improved.
Transition back to Eliquis if no procedures planned. Currently on IV Heparin. For now with high residuals, TF held.
Cont med tx of nonMI trop, peak 1.5
Echo reviewed and shows preserved EF
Cont tx for Flu PNA
Cont vent management.
Cont Levothyroxine. TSH normal.
Discussed with nursing and primary service.
HPI: Liza is an 88-year-old female with past medical history of paroxysmal atrial fibrillation maintained on Eliquis and amiodarone, hypertension, hypothyroidism, breast cancer, colon cancer, and vascular dementia. She presented to ER for
evaluation of respiratory distress. History is obtained from as patient is intubated and sedated. He reports they began feeling unwell earlier this week with flulike symptoms. She was given antibiotics and cough medicine by PCP. She
continued to feel poorly. He had EMS come out to evaluate her around 5 PM and reportedly she was stable with normal pulse ox and did not require hospitalization. They went to sleep later that night and when he woke up around 11 PM, he noted that
her breathing sounded labored, so he then called EMS and pulse ox was noted to be in the 70s and she was placed on nonrebreather. On arrival to the ER, she was markedly hypoxemic and in severe distress and required intubation. She remains
intubated and sedated at this time and has been admitted to the ICU with influenza A pneumonia and sepsis. Elevated troponin noted, trending up to 1.52 resulting in cardiology consultation. Has been reports no history of coronary artery disease or
prior stenting. He does note that she had a an echo within the past few months and has never been told that she has a weakened heart muscle
Progress Note - Postulant
Subjective
Date of Service: June 24, 2024
Pt seen and examined. Sedated on vent. High residuals with TF. Diarrhea and vomiting..
Objective
Labs:
06/24/24 03:08
06/24/24 03:08
Labs
Hgb 9.3 g/dL (12.0-16.0) L 06/24/24 03:08
Hct 28.5 % (37.0-47.0) L 06/24/24 03:08
Plt Count 167 10^3/uL (130-400) 06/24/24 03:08
PT 16.7 Sec (11.4-14.6) H 06/22/24 00:57
INR 1.30 06/22/24 00:57
APTT 65.0 Sec (23.4-35.0) H 06/24/24 03:08
Sodium 141 mmol/L (135-145) 06/24/24 03:08
Potassium 3.9 mmol/L (3.5-5.1) 06/24/24 03:08
BUN 35 mg/dl (7-17) H 06/24/24 03:08
Creatinine 2.0 mg/dL (0.6-1.0) H 06/24/24 03:08
Glucose 134 mg/dl (70-99) H 06/24/24 03:08
Troponins
06/22/24 06/22/24 06/22/24
00:35 06:21 15:13
Troponin I 0.735 H* 1.520 H* D 1.280 H*
06/23/24
03:30
Troponin I 1.090 H*
Vital Signs and I&O:
Vital Signs
Temp Pulse Resp BP Pulse Ox
96.3 F L 62 15 107/46 99
06/24/24 07:22 06/24/24 08:30 06/24/24 08:30 06/24/24 08:30 06/24/24 08:44
Vital Signs
Temp Pulse Resp BP Pulse Ox
96.3 F L 62 15 107/46 99
06/24/24 07:22 06/24/24 08:30 06/24/24 08:30 06/24/24 08:30 06/24/24 08:44
Intake & Output
06/22/24 06/23/24 06/24/24 06/25/24
06:59 06:59 06:59 06:59
Intake Total 9.9 / 16.5 3850.2 / 4022.1 5470.7 / 5596.6 251.8 / 251.8
Output Total 425 / 475 1235 / 1240 1640 / 1665 50 / 50
Balance -415.1 / -458.5 2615.2 / 2782.1 3830.7 / 3931.6 201.8 / 201.8
Physical Exam
Physical Exam
General: sedated on vent
Neck: Negative JVD
Heart: Irregularly irregular, Negative S3 positive S1/S2, Negative S4, No murmur
Lungs: CTA b/l, negative wheezes/rales/rhonchi
Abd: Positive BS, NT/ND, neg rebound/rigidity/guarding
Ext: Negative cyanosis/clubbing/edema
Neuro: nonfocal
[2024-06-24] MEDS: ASPIRIN RECTAL (10:11)
--- NOTE | 2024-06-24 10:17 | PTCARENOTE ---
Tube feeds on hold for today. will minimize sedation, continue to turn and reposition patient. patient is having diarrhea as well. Amio gtt off per cardiology. ok to give PO meds through OGT.
[2024-06-24 10:37] LABS: APTT 76.1 Sec (23.4-35.0)
--- NOTE | 2024-06-24 10:46 | W.PN.INTV ---
Today's Communication / Plan
Recommendations
Continue mechanical ventilation without change for now
Minimize sedation
Continue amiodarone per cardiology
Continue heparin drip-follow PTT
Discontinue vancomycin
Continue Zosyn for now
Continue Tamiflu
Hold tube feedings for today
Assessment
-
88-year-old female with history of atrial fibrillation, vascular dementia, breast cancer, colon cancer, presents with increased shortness of breath since 06/21. Patient refused transport upon first call to 911 but second call, was noted to be
saturating in the 70s, intubated in the ED. Influenza A positive, troponin positive. Given aspirin in the ED, Tamiflu via feeding tube. Patient was also given vancomycin and Zosyn, admitted to ICU for further management
Acute hypoxic respiratory failure
Saturation in the 70s
Intubated in ED 06/21
Hypotension, likely septic shock
Requiring pressors
Elevated troponin
Acute renal insufficiency, creatinine 1.6
Baseline not known
Elevated lactate
Acute transaminitis
Abnormal EKG
First-degree AV block
Atrial fibrillation/atrial flutter
Conditions present prior to admission
History of recurrent pneumonia
Suspected aspiration syndrome
Follows pulmonary at [place] ([facility])
History of atrial fibrillation
Amiodarone therapy
On Eliquis
Hypothyroidism
History of vascular dementia
Plan/recommendations
Remains critically ill, on mechanical ventilation. Vasopressors have been discontinued.
-
Mechanical ventilation settings reviewed:
Continue with volume-cycled ventilation
AC 16/450/5/40%
Pulmonary mechanics adequate.
ABG 7.24/33/90
Chest x-ray: 06/24/2024-reviewed, ET tube in place. Increased bilateral interstitial markings. Left hemidiaphragm elevation.
Will try to wean down sedation, suspect acid-base status will improve as sedation gets weaned off.
Head of bed elevated, aspiration precautions
Daily ABG.
-
Minimize sedation: Hopefully can transition to as needed fentanyl only.
-
Patient also appears to have aspiration syndrome per discussion with at the bedside, pneumonia every year-will need to be addressed later on.
-
No leukocytosis, fever curve improved.
Continue Zosyn for now-likely will opt for short course of antibiotics 5 days.
Discontinue vancomycin, MRSA screening negative.
Remains on Tamiflu-complete 5 days for
-
NSVT -
Continue amiodarone. Per cardiology.
Creatinine elevated, elevated proBNP noted although does not appear to be in heart failure on exam
Heparin therapy started per primary service for elevated troponin-follow PTT.
Echocardiogram today shows normal biventricular function, underfilled LV, PA pressure 40
Elevated troponin noted
Cardiology continues to follow.
Medical management for now
Patient also on Eliquis 2.5 mg twice a day chronically for atrial fibrillation. Heparin therapy started-continue for now.
-
Septic shock: Improved. Vasopressors discontinued
Metabolic acidosis [id number] gap.
On bicarbonate drip, 100 cc an hour
Mildly increased lactate acid on admission.
Repeat BMP later, will adjust IV fluids depending on results.
-
Follow creatinine, I's and O's
Beckman catheter
-
Transaminitis noted-stable
Monitor LFTs
Likely secondary to shock, sepsis
Abdominal ultrasound unremarkable
OG tube in place
Hold tube feedings: Patient has diarrhea also had vomiting and high residuals.
Abdominal exam is benign
Will readdress in the next 24 to 48 hours
PPI for GI prophylaxis
DVT prophylaxis-on heparin drip
Reviewed with critical care nursing, cardiology, primary service
Critical care statement: A total of 32minutes of critical care time was provided for this patient today. This includes management of unstable vital signs, evaluation of the patient at bedside, reviewing the patient's pertinent medical records
including ventilator settings, arterial blood gases, radiographs, microbiology, laboratory evaluations and discussion with primary team, critical care nursing, and respiratory therapy.
Subjective Dataa
Subjective Data
Date of Service:
Date of Service: June 24, 2024
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
Subjective:
Sedated, on mechanical ventilation.
Unable to provide history
Review of Systems
General: Unobtainable - Sedation
Objective Data
Data Reviewed
Vital Signs / I&O / Oxygen:
Vital Signs
Temp Pulse Resp BP Pulse Ox
96.3 F L 67 16 119/56 96
06/24/24 07:22 06/24/24 10:00 06/24/24 10:00 06/24/24 10:00 06/24/24 10:00
Intake and Output
06/23/24 06/24/24 06/25/24
06:59 06:59 06:59
Intake Total 3850.2 / 4022.1 5470.7 / 5596.6 473.6 / 473.6
Output Total 1235 / 1240 1640 / 1665 110 / 110
Balance 2615.2 / 2782.1 3830.7 / 3931.6 363.6 / 363.6
SaO2 [ASV] 96
SaO2 [A/C] 98
SaO2 96
Physical Exam
General: Comfortable and Other (Left upper extremity midline)
HEENT: Normocephalic and Anicteric
Cardiovascular: S1-S2, Irregular Rhythm, Murmur (n) and Rub (n)
Respiratory: Wheeze (n), Crackles (n), Rhonchi (n), Non-Labored Respirations and ET Tube (No significant secretion)
GI: Soft, Non Distended and Non Tender
Neurology: Lethargic (Sedated but does spontaneously move extremities)
Skin: Cyanosis (n), Jaundice (n), Rash (n) and Bruising (Few)
Labs/Micro/Reports
Lab Data
06/24/24 03:08
06/24/24 03:08
Laboratory Results
06/23/24 06/23/24 06/24/24
11:54 19:50 03:08
APTT 169.7 H* 101.2 H 65.0 H
pH
pCO2
pO2
HCO3
O2 Delivery Level
06/24/24 06/24/24
04:06 10:03
APTT 76.1 H
pH 7.24 L
pCO2 33
pO2 90
HCO3 14.1 L*
O2 Delivery Level 40%
Microbiology
06/22/24 15:13 Nose MRSA Screen - Final
No Methicillin Resistant Staphylococcus aureus isolated.
06/22/24 07:33 Blood/Venous Blood Culture - Preliminary
No Growth in 48 hours- Final report to follow
06/22/24 07:33 Blood/Venous Blood Culture - Preliminary
No Growth in 48 hours- Final report to follow
06/22/24 10:38 Tracheal Aspirate Respiratory Culture - Preliminary
NO GROWTH
06/22/24 10:38 Tracheal Aspirate Gram Stain - Preliminary
06/22/24 00:35 Nasal Swab Influenza Types A & B (MIGUEL) - Final
Influenza A Positive, NAAT
[2024-06-24] MEDS: HEPARIN 25000 UNITS/250 ML IV (10:53)
[2024-06-24] MEDS: LOW STRENGTH ASPIRIN 81 MG TUBE (11:36)
[2024-06-24 13:59] LABS: Blood Urea Nitrogen 35 mg/dl (7-17); Calcium 6.9 mg/dl (8.4-10.2); Carbon Dioxide 19 mmol/L (22-30); Chloride 111 mmol/L (98-107); Estimated Creatinine Clearance 17 ml/min; Glucose 70 mg/dl (70-99); Potassium 3.6 mmol/L (3.5-5.1); Sodium 138 mmol/L (135-145); eGFR 25.08
--- NOTE | 2024-06-24 15:01 | W.PN.HOSP.TC ---
Today's Communication/Plan
-
continue Abx, Tamiflu
wean vent as able
continue Amiodarone
Assessment / Plan
Assessment / Plan
Assessment:
Acute hypoxic respiratory failure
VDRF
- in setting of Influenza A
- wean vent/sedation per ICU team
Septic shock from Influenza A, possible superimposed bacterial PNA
- wean pressors to off
- continue Zosyn day 3; follow cultures
- Vanco stopped with negative MRSA screen
- continue Tamiflu
- lactates improving
Hx of Parox Afib with RVR
- continue Amio orally
- continue IV heparin - requires intensive monitoring of PTTs
- eventually resume Eliquis
- Echo: EF: 55-60%, moderate TR, pulmonary HTN
nonischemic myocardial injury
- trop peaked at 1.5
Acute renal insufficiency
- unknown baseline
- monitor Cr, most recently 1.9
Elevated LFTs likely shock liver
- trend CMP
Hypothyroidism
- continue replacement. TSH nromal
Vascular dementia
Essential HTN
- hold losartan
Chronic anemia
- monitor Hb
DVT ppx: IV heparin
Code: Full
Total Critical Care Time 41 minutes. I was immediately available to the patient and staff. I personally examined, reviewed labs, diagnostic images/reports, interpretations, treatment plans, discussed patient care with other providers and family
or caregivers (if patient is unable to make decisions), entered orders as appropriate and documented the medical record.
Anticipated Discharge: > 48 hours
Subjective/Interval History
-
Date of Service: June 24, 2024
remains intubated/sedated
Objective Data
-
Labs:
Laboratory Results
06/24/24 06/24/24 06/24/24
03:08 04:06 10:03
WBC 10.8
Hgb 9.3 L
Hct 28.5 L
Plt Count 167
APTT 65.0 H 76.1 H
HCO3 14.1 L*
Sodium 141
Potassium 3.9
Chloride 113 H
Carbon Dioxide 15 L
BUN 35 H
Creatinine 2.0 H
Glucose 134 H
Calcium 7.3 L
Total Bilirubin 0.5
AST 201 H
ALT 118 H
Alkaline Phosphatase 144 H
06/24/24 06/24/24
12:42 16:00
WBC
Hgb
Hct
Plt Count
APTT Pending
HCO3
Sodium 138
Potassium 3.6
Chloride 111 H
Carbon Dioxide 19 L
BUN 35 H
Creatinine 1.9 H
Glucose 70
Calcium 6.9 L*
Total Bilirubin
AST
ALT
Alkaline Phosphatase
Vital Signs:
Vital Signs
Temp Pulse Resp BP Pulse Ox
97.1 F 85 17 116/70 97
06/24/24 11:21 06/24/24 13:00 06/24/24 13:00 06/24/24 13:00 06/24/24 13:00
I&O
06/23/24 06/24/24 06/25/24
06:59 06:59 06:59
Intake Total 3850.2 / 4022.1 5470.7 / 5596.6 811.4 / 811.4
Output Total 1235 / 1240 1640 / 1665 220 / 220
Balance 2615.2 / 2782.1 3830.7 / 3931.6 591.4 / 591.4
Physical Exam
-
General: No Apparent Distress
HEENT: Normocephalic and Atraumatic
Respiratory: Negative Wheezes, Rales or Rhonchi
Cardiac: Irregular Rhythm
GI: Soft
Neuro: AO x 3
Hematologic / Lymphatic: No Lymphadenopathy
Psych: Calm
Data Reviewed
-
Critical Care Time (in minutes): 41
Labs: Labs Reviewed by me
[2024-06-24] MEDS: CALCIUM GLUCONATE 1000 MG IV (15:51)
[2024-06-24] MEDS: TYLENOL ORAL SOLUTION 650 MG TUBE (16:13)
[2024-06-24 16:27] LABS: APTT 67.2 Sec (23.4-35.0)
--- NOTE | 2024-06-24 16:32 | CM ---
Chart reviewed and patient remains on ventilator, plan to continue to wean, will need to follow with patient progress for discharge planning for patient.
Plan; To follow with patient progress.
--- NOTE | 2024-06-24 16:32 | PTCARENOTE ---
No change in patient's assessment. patient is minimally responsive, does respond when doing mouthcare but is not following any commands. Will come down on sedation.
--- NOTE | 2024-06-24 20:00 | PTCARENOTE ---
Rec'd pt with wrists restrained, javi at 2mm, sluggish, does not follow commands, fent gtt at 50 schuyler, dip gtt at 20 schuyler, SR w/ pac's, occas afib, sinus carmita, bp stable, hep gtt at 450 units, weak pulses, skin warm/dry, #7 oral ett- 22 cm moved to R
lip, ac 16, tv 450, 5 peep, 40%, sat98, hypo bowel sounds, inc loose brown stool, oral [place] to low inter suctiondraining libht brown liquid, lomeli draining yellow urine
[2024-06-24 23:17] LABS: APTT 108.1 Sec (23.4-35.0)
[2024-06-25] VITALS (33 sets, daily range): BP systolic 80–155; BP diastolic 34–90; BMI 23.5
--- NOTE | 2024-06-25 | PTCARENOTE ---
sys reviewed, changes noted, inc of loose brown stool, boone care given, chg bath done , linens changed
[2024-06-25] MEDS: ZOSYN 50 IV ×5 (00:08→23:27)
[2024-06-25] MEDS: SODIUM BICARBONATE 1150 MEQ IV (03:52)
--- NOTE | 2024-06-25 04:09 | PTCARENOTE ---
sys reviewed,ett repos on left side using new ett [place]
[2024-06-25 04:56] LABS: Hemoglobin 8.7 g/dL (12.0-16.0); Mean Corp Hgb Conc. 33.5 g/dL (33.0-37.0); Mean Corpuscular Hgb 30.5 pg (27.0-31.0); Mean Corpuscular Volume 91.2 fL (81.0-99.0); Mean Platelet Volume 10.9 fL (7.4-10.4); Platelet Count 142 10^3/uL (130-400); Red Blood Cell Count 2.85 10^6/uL (4.20-5.40); Red Cell Dist. Width 14.9 % (11.5-14.5); White Blood Cell Count 11.3 10^3/uL (4.8-10.8)
[2024-06-25 05:19] LABS: APTT 113.8 Sec (23.4-35.0)
[2024-06-25] MEDS: SYNTHROID 112 MCG TUBE (05:19)
[2024-06-25 05:49] LABS: ALT (SGPT) 106 U/L (0-35); AST (SGOT) 203 U/L (14-36); Albumin 2.5 g/dl (3.5-5.0); Alkaline Phosphatase 230 U/L (38-126); Blood Urea Nitrogen 40 mg/dl (7-17); Calcium 7.3 mg/dl (8.4-10.2); Carbon Dioxide 22 mmol/L (22-30); Chloride 102 mmol/L (98-107); Estimated Creatinine Clearance 15 ml/min; Glucose 79 mg/dl (70-99); Potassium 3.6 mmol/L (3.5-5.1); Sodium 137 mmol/L (135-145); Total Bilirubin 0.6 mg/dl (0.2-1.3); Total Protein 4.8 g/dl (6.3-8.2); Triglycerides 315 mg/dl (10-149); eGFR 22.25
[2024-06-25] MEDS: CALCIUM GLUCONATE 100 IV (06:12)
--- NOTE | 2024-06-25 06:12 | PTCARENOTE ---
2 gm tani gluconate /100 hung over 1hr
--- NOTE | 2024-06-25 07:27 | W.PN.INTV ---
Today's Communication / Plan
Recommendations
Discontinue sedation
Obtain ABG
Continue to hold tube feedings for today
Continue Zosyn for 1 additional day
Continue Tamiflu to complete 5 days total
May need to consider gentle diuresis if not able to extubate
Heparin drip-will consider transition to Eliquis today.
Assessment
-
88-year-old female with history of atrial fibrillation, vascular dementia, breast cancer, colon cancer, presents with increased shortness of breath since 06/21. Patient refused transport upon first call to 911 but second call, was noted to be
saturating in the 70s, intubated in the ED. Influenza A positive, troponin positive. Given aspirin in the ED, Tamiflu via feeding tube. Patient was also given vancomycin and Zosyn, admitted to ICU for further management
Acute hypoxic respiratory failure-due to influenza A pneumonia/cannot rule out aspiration event/heart failure component
Saturation in the 70s
Intubated in ED 06/21
proBNP 06/22/2024 is 19,500
Hypotension, likely septic shock
Requiring pressors
Elevated troponin
Acute renal insufficiency on CKD suspected
Baseline not known
Elevated lactate
Acute transaminitis
Abnormal EKG
First-degree AV block
Atrial fibrillation/atrial flutter
Conditions present prior to admission
History of recurrent pneumonia
Suspected aspiration syndrome
Follows pulmonary at [place] ([facility])
History of atrial fibrillation
Amiodarone therapy
On Eliquis
Hypothyroidism
History of vascular dementia
Plan/recommendations
Remains critically ill, on mechanical ventilation. Hemodynamics improved-off vasopressors for over 24 hours.
-
Mechanical ventilation settings reviewed:
Continue with volume-cycled ventilation
AC 16/450/5/40%
Pulmonary mechanics adequate.
ETT without secretions.
ABG 7./ (06/24/2024)
Chest x-ray 06/25/2024: Reviewed, ET tube in place, increased pulmonary edema pattern. Left hemidiaphragm elevation.
-
Repeat ABG today 06/25/2024.
-
Discontinue sedation and evaluate mental status and readiness for spontaneous breathing trial.
If not extubated transition to fentanyl as needed only.
Triglycerides elevated-will follow-up with
Aspiration precautions
-
Patient also appears to have aspiration syndrome per discussion with at the bedside on admission, pneumonia every year-will need to be addressed later on.
-
Slight leukocytosis.
Fever curve improved all cultures negative so far
Continue Zosyn for now-likely will opt for short course of antibiotics 5 days.
Discontinued vancomycin, MRSA screening negative.
Remains on Tamiflu-complete 5 days for
-
NSVT/atrial fibrillation.
Heart rate improved
Continue amiodarone.
Agree with restart Eliquis and discontinue heparin drip
-
Creatinine elevated, elevated proBNP noted although does not appear to be in heart failure on exam
Echocardiogram today shows normal biventricular function, underfilled LV, PA pressure 40
Elevated troponin noted-trending lower
Cardiology continues to follow.
Medical management for now
If pulmonary edema pattern persist on x-ray and unable to extubate, may need to consider at least 1 dose of diuretics, her weight is trending higher.
Discontinue IV fluids today.
-
Septic shock: Resolved, off vasopressors for 24 hours or longer.
Metabolic acidosis [id number] gap-resolved 06/25/2024
Discontinue bicarbonate drip today 06/25/2024
Mildly increased lactate acid on admission-no longer trending.
-
Follow creatinine, I's and O's
Beckman catheter
-
Transaminitis noted-stable
Monitor LFTs
Likely secondary to shock, sepsis
Abdominal ultrasound unremarkable
OG tube in place
Hold tube feedings: Patient has diarrhea also had vomiting and high residuals 06/24/2024.
Abdominal exam is benign
Continue to hold tube feedings for today, minimize sedation.
PPI for GI prophylaxis
DVT prophylaxis-on heparin drip
Reviewed with critical care nursing, cardiology, primary service
Critical care statement: A total of 33minutes of critical care time was provided for this patient today. This includes management of unstable vital signs, evaluation of the patient at bedside, reviewing the patient's pertinent medical records
including ventilator settings, arterial blood gases, radiographs, microbiology, laboratory evaluations and discussion with primary team, critical care nursing, and respiratory therapy.
Subjective Dataa
Subjective Data
Date of Service:
Date of Service: June 25, 2024
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
Subjective:
Remains critically ill, intubated on mechanical ventilation.
Unable to provide history due to sedation.
Review of Systems
General: Unobtainable - Sedation
Objective Data
Data Reviewed
Vital Signs / I&O / Oxygen:
Vital Signs
Temp Pulse Resp BP Pulse Ox
98.5 F 67 16 106/53 98
06/25/24 07:00 06/25/24 06:00 06/25/24 06:00 06/25/24 06:00 06/25/24 06:00
Intake and Output
06/24/24 06/25/24 06/26/24
06:59 06:59 06:59
Intake Total 5470.7 / 5596.6 3177.0 / 3177.0
Output Total 1640 / 1665 1320 / 1320
Balance 3830.7 / 3931.6 1857.0 / 1857.0
SaO2 [ASV] 96
SaO2 [A/C] 98
SaO2 98
Physical Exam
General: Comfortable and Other (Left upper extremity midline)
HEENT: Normocephalic and Anicteric
Cardiovascular: S1-S2, Irregular Rhythm, Murmur (n) and Rub (n)
Respiratory: Wheeze (n), Crackles (n), Rhonchi (n), Non-Labored Respirations and ET Tube (No significant secretion)
GI: Soft, Non Distended and Non Tender
Neurology: Lethargic (Sedated but does spontaneously move extremities)
Skin: Cyanosis (n), Jaundice (n), Rash (n) and Bruising (Few)
Labs/Micro/Reports
Lab Data
06/25/24 04:48
06/25/24 04:48
Laboratory Results
06/24/24 06/24/24 06/24/24
10:03 15:58 22:54
APTT 76.1 H 67.2 H 108.1 H
06/25/24
04:48
APTT 113.8 H
Microbiology
06/22/24 10:38 Tracheal Aspirate Respiratory Culture - Final
NO GROWTH
06/22/24 10:38 Tracheal Aspirate Gram Stain - Final
06/22/24 15:13 Nose MRSA Screen - Final
No Methicillin Resistant Staphylococcus aureus isolated.
06/22/24 07:33 Blood/Venous Blood Culture - Preliminary
No Growth in 48 hours- Final report to follow
06/22/24 07:33 Blood/Venous Blood Culture - Preliminary
No Growth in 48 hours- Final report to follow
06/22/24 00:35 Nasal Swab Influenza Types A & B (MIGUEL) - Final
Influenza A Positive, NAAT
--- NOTE | 2024-06-25 07:45 | PTCARENOTE ---
Received pt @ change of shift. Intubated/sedated w b/l soft limb restraints/4 rails- see flow sheet. Lethargic; opens eyes spontaneously, no tracking; does not follow commands. Pupils 2mm/sluggish b/l. Weak cough/gag reflex. SR w 1st degree AVB
w PACs. +1 anasarca. SpO2 99% on ventilator settings AC16/450/.40/+5. #7.0 ett/ 22 @ lip on L side. Auscultated coarse breath sounds throughout. Suctioned for small amt of thick/quiñones sputum. Complete mouth care per protocol. +BS, abs soft/round.
OG tube secured @ 45cm; clamped for rn medical surgical. Inc of loose stools; complete hygiene provided. Thermistor lomeli in place draining yellow urine. Bicarb/prop/fent/heparin gtts infusing per orders- see flow sheet. Repositioned per protocol. Safe
environment maintained.
[2024-06-25] MEDS: LOW STRENGTH ASPIRIN 81 MG TUBE (07:50)
[2024-06-25] MEDS: PACERONE 200 MG TUBE ×2 (07:50→10:22)
[2024-06-25] MEDS: TAMIFLU 30 MG TUBE (07:51)
[2024-06-25] MEDS: NSS (PRESERVATIVE FREE) 10 ML IV (07:51)
[2024-06-25] MEDS: PROTONIX IV 40 MG IV (07:51)
[2024-06-25 08:19] LABS: B.E. -2.1 mmol/L; HCO3 22.2 mmol/L (21-28); O2 Saturation % 97.7 % (94-98); PCO2 35 mmHg (32-35); PO2 98 mmHg (83-108); pH 7.41 (7.35-7.45)
--- NOTE | 2024-06-25 08:20 | W.PN.CARDCBS ---
Today's Communication / Plan
-
In sinus rhythm. Reduce Amiodarone to 200 mg daily
Transition from IV Heparin to Eliquis
Cont supportive care and vent management as per primary service.
Impression / Plan
-
.
Icer Machine: Dr. Hahn ([facility] Cardiology)
Impression:
Presented w/ respiratory distress
VDRF
Influenza A Pneumonia
Sepsis
Elevated troponin peak 1.5
Paroxysmal atrial fibrillation on chronic amiodarone therapy
Chronic OAC with Eliquis
Acute on chronic RF
Hypertension
Hypothyroidism
h/o breast cancer
h/o colon cancer
Vascular dementia
Echo Jun 23 2024: EF 55-60% with RODRIGUEZ, PASP 35-40 mmHg
Plan:
-Presented with respiratory distress. Intubated in ER. Remains intubated and sedated. Admitted with sepsis due to Influenza A pneumonia. Respiratory failure due to flu A
In sinus rhythm. Amiodarone was increased to 200 mg TID for PAfib with RVR. Rates improved. Reduce Amiodarone back to 200 mg daily.
Transition back to Eliquis if no procedures planned. Currently on IV Heparin. Possible transition back to Eliquis Jun 25 as per systems integrator.
TF held for high residuals.
Cont med tx of nonMI trop, peak 1.5
Echo reviewed and shows preserved EF
Wt up slightly, systems integrator may consider diuresis in next 24 hrs if pt not extubated.
Cont tx for Flu PNA
Cont vent management.
Cont Levothyroxine. TSH normal.
Discussed with nursing and primary service.
HPI: Liza is an 88-year-old female with past medical history of paroxysmal atrial fibrillation maintained on Eliquis and amiodarone, hypertension, hypothyroidism, breast cancer, colon cancer, and vascular dementia. She presented to ER for
evaluation of respiratory distress. History is obtained from as patient is intubated and sedated. He reports they began feeling unwell earlier this week with flulike symptoms. She was given antibiotics and cough medicine by PCP. She
continued to feel poorly. He had EMS come out to evaluate her around 5 PM and reportedly she was stable with normal pulse ox and did not require hospitalization. They went to sleep later that night and when he woke up around 11 PM, he noted that
her breathing sounded labored, so he then called EMS and pulse ox was noted to be in the 70s and she was placed on nonrebreather. On arrival to the ER, she was markedly hypoxemic and in severe distress and required intubation. She remains
intubated and sedated at this time and has been admitted to the ICU with influenza A pneumonia and sepsis. Elevated troponin noted, trending up to 1.52 resulting in cardiology consultation. Has been reports no history of coronary artery disease or
prior stenting. He does note that she had a an echo within the past few months and has never been told that she has a weakened heart muscle
Progress Note - Icer Machine
Subjective
Date of Service: June 25, 2024
Objective
Labs:
06/25/24 04:48
06/25/24 04:48
Labs
Hgb 8.7 g/dL (12.0-16.0) L 06/25/24 04:48
Hct 26.0 % (37.0-47.0) L 06/25/24 04:48
Plt Count 142 10^3/uL (130-400) 06/25/24 04:48
PT 16.7 Sec (11.4-14.6) H 06/22/24 00:57
INR 1.30 06/22/24 00:57
APTT 113.8 Sec (23.4-35.0) H 06/25/24 04:48
Sodium 137 mmol/L (135-145) 06/25/24 04:48
Potassium 3.6 mmol/L (3.5-5.1) 06/25/24 04:48
BUN 40 mg/dl (7-17) H 06/25/24 04:48
Creatinine 2.1 mg/dL (0.6-1.0) H 06/25/24 04:48
Glucose 79 mg/dl (70-99) 06/25/24 04:48
Troponins
06/22/24 06/23/24
15:13 03:30
Troponin I 1.280 H* 1.090 H*
Vital Signs and I&O:
Vital Signs
Temp Pulse Resp BP Pulse Ox
98.5 F 65 16 126/57 98
06/25/24 07:00 06/25/24 07:50 06/25/24 06:00 06/25/24 07:50 06/25/24 08:11
Vital Signs
Temp Pulse Resp BP Pulse Ox
98.5 F 65 16 126/57 98
06/25/24 07:00 06/25/24 07:50 06/25/24 06:00 06/25/24 07:50 06/25/24 08:11
Intake & Output
06/23/24 06/24/24 06/25/24 06/26/24
06:59 06:59 06:59 06:59
Intake Total 3850.2 / 4022.1 5470.7 / 5596.6 3177.0 / 3287.9 174.4 / 174.4
Output Total 1235 / 1240 1640 / 1665 1320 / 1370 100 / 100
Balance 2615.2 / 2782.1 3830.7 / 3931.6 1857.0 / 1917.9 74.4 / 74.4
Physical Exam
Physical Exam
General: sedated on vent, frail appearing
Neck: Negative JVD
Heart: Regular, Negative S3 positive S1/S2, Negative S4, No murmur
Lungs: CTA b/l, negative wheezes/rales/rhonchi
Abd: Positive BS, NT/ND, neg rebound/rigidity/guarding
Ext: Negative cyanosis/clubbing/edema
Neuro: nonfocal
[2024-06-25] MEDS: MIRALAX TUBE (08:25)
--- NOTE | 2024-06-25 09:05 | W.PN.HOSP.TC ---
Today's Communication/Plan
-
wean sedation/vent, follow ABG
switch to Eliquis
dc fluids, consider IV Lasix
Assessment / Plan
Assessment / Plan
Assessment:
Acute hypoxic respiratory failure
VDRF
- in setting of Influenza A
- wean vent/sedation per ICU team; ABG pending
- repeat CXR 06/25 with increased pulmonary edema pattern; consider IV Lasix
Septic shock from Influenza A, possible superimposed bacterial PNA
- wean pressors to off
- continue Zosyn day 4/5; follow cultures
- Vanco stopped with negative MRSA screen
- continue Tamiflu x 5 total days
- lactates improving
Hx of Parox Afib with RVR
- continue Amio orally
- DC IV heparin and resume Eliquis
- Echo: EF: 55-60%, moderate TR, pulmonary HTN
nonischemic myocardial injury
- trop peaked at 1.5
Acute renal insufficiency
- unknown baseline
- monitor Cr, most recently 2.1
- obtain records from PCP if able
Elevated LFTs likely shock liver
- trend CMP
Hypothyroidism
- continue replacement. TSH nromal
Vascular dementia
Essential HTN
- hold losartan
Chronic anemia
- monitor Hb
Nutrition
- holding TFs as vomited 06/24. resume when able if extubated
DVT ppx: Eliquis
Code: Full
Total Critical Care Time 45 minutes. I was immediately available to the patient and staff. I personally examined, reviewed labs, diagnostic images/reports, interpretations, treatment plans, discussed patient care with other providers and family
or caregivers (if patient is unable to make decisions), entered orders as appropriate and documented the medical record.
Anticipated Discharge: > 48 hours
Subjective/Interval History
-
Date of Service: June 25, 2024
sedation weaned
attempts to close eyes when asked but no otherwise following commands currently
Objective Data
-
Labs:
Laboratory Results
06/24/24 06/25/24 06/25/24
22:54 00:30 04:48
WBC 11.3 H
Hgb Cancelled 8.7 L
Hct Cancelled 26.0 L
Plt Count 142
APTT 108.1 H 113.8 H
HCO3
Sodium 137
Potassium 3.6
Chloride 102
Carbon Dioxide 22
BUN 40 H
Creatinine 2.1 H
Glucose 79
Calcium 7.3 L
Total Bilirubin 0.6
AST 203 H
ALT 106 H
Alkaline Phosphatase 230 H
06/25/24 06/25/24
08:09 11:30
WBC
Hgb
Hct
Plt Count
APTT Pending
HCO3 22.2
Sodium
Potassium
Chloride
Carbon Dioxide
BUN
Creatinine
Glucose
Calcium
Total Bilirubin
AST
ALT
Alkaline Phosphatase
Vital Signs:
Vital Signs
Temp Pulse Resp BP Pulse Ox
98.5 F 65 16 126/57 98
06/25/24 07:00 06/25/24 07:50 06/25/24 06:00 06/25/24 07:50 06/25/24 08:11
I&O
06/24/24 06/25/24 06/26/24
06:59 06:59 06:59
Intake Total 5470.7 / 5596.6 3177.0 / 3287.9 174.4 / 174.4
Output Total 1640 / 1665 1320 / 1370 100 / 100
Balance 3830.7 / 3931.6 1857.0 / 1917.9 74.4 / 74.4
Physical Exam
-
General: No Apparent Distress, Intubated and Appears Chronically Ill
HEENT: Normocephalic and Atraumatic
Respiratory: Crackles; Negative Wheezes
Cardiac: Regular Rhythm and S1/S2
GI: Soft
Neuro: Awake
Psych: Calm
Data Reviewed
-
Critical Care Time (in minutes): 45
Labs: Labs Reviewed by me
[2024-06-25] MEDS: ELIQUIS 2.5 MG PO ×2 (10:22→21:57)
--- NOTE | 2024-06-25 12:22 | PTCARENOTE ---
SAT initiated @ 0807; prop/fent gtts off- see flow sheet. During SAT pt. found to be more awake and attempting to follow commands @ x's but remains lethargic/weak. MD and RT notified of SAT assessment and SBT initiated by RT 1045; vent settings
changed to CPAP 5/5/.40 by RT. Marginally tolerating wean. Dr. Nick to bedside; received further orders for ABG on wean. ABG drawn and sent to lab; awaiting results. Pt.'s updated @ bedside this AM of plan of care. Safe environment
maintained.
[2024-06-25 12:49] LABS: B.E. -3.1 mmol/L; HCO3 23.2 mmol/L (21-28); PCO2 46 mmHg (32-35); PO2 67 mmHg (83-108); pH 7.31 (7.35-7.45)
--- NOTE | 2024-06-25 13:22 | W.PN.UPDATE ---
Update Note
Progress Note Update
Spontaneous breathing trial performed.
Patient slightly tachypneic.
Underlying dementia, alert.
ABG with mild hypercapnic respiratory failure. Not ready for extubation.
Will place back on AC and retry in the morning.
[2024-06-25] MEDS: LASIX 20 MG IV (14:23)
[2024-06-25] MEDS: SUBLIMAZE 50 MCG IV ×3 (14:23→17:27)
--- NOTE | 2024-06-25 14:48 | PTCARENOTE ---
ABG results reviewed oh Director Of [employer], Dr. Nick. Plan to keep patient intubated. Pt. weaned for approx 2H and RT switched pt back over to original AC settings 16/450/.40/+5. CPOT 3- medicated w prn Fent bolus and gtt restarted- see MAR/ flow
sheet. TF initiated per orders @ 1300- Osmolite @ 20mL/hr w 25mL/hr H20 flush. Tolerating feeds thus far. Pt. repositioned per protocol. Safe environment maintained.
[2024-06-25] MEDS: DIPRIVAN 100 IV (17:51)
--- NOTE | 2024-06-25 20:00 | PTCARENOTE ---
Rec'd pt with wrists restrained for safety, at bedside- staying the night, TILA at 2mm, sluggish, wiggles fingers & toes to command, RASS 1- diprivan gtt restarted at 10mic, fent gtt at 50mic, LE stiff; SR w/ 1' av block, weak pulses, +
edema, skin warm/dry, # 7 oral ett- repos on left side at 22cm- breakdown noted Rupper lip, ac 16, tv 450, 5 peep, 40%, sat 96, lungs coarse, scant quiñones secretions, hypo bowel sounds, inc loose brown bm- rectal trumpet to str drainage bag inserted,
oral [place]- osmolyte 1.2 incr to 30ml/hr & 25ml h20 flush, lomeli draining yellow urine
--- NOTE | 2024-06-25 21:55 | PTCARENOTE ---
Levo gtt started at 2mic- to keep map > 65 per order
[2024-06-25] MEDS: LEVOPHED 250 IV (22:00)
[2024-06-26] VITALS (93 sets, daily range): BP systolic 70–163; BP diastolic 36–113; BMI 24.0
--- NOTE | 2024-06-26 00:15 | PTCARENOTE ---
sys reviewed, changes noted, CHG bath done, linens changed
[2024-06-26] MEDS: SUBLIMAZE 100 IV (01:52)
--- NOTE | 2024-06-26 02:15 | PTCARENOTE ---
Afib 100-120, K MARIPOSA Hicks aware, bp stable
[2024-06-26 03:33] LABS: Hematocrit 28.7 % (37.0-47.0); Hemoglobin 9.3 g/dL (12.0-16.0); Mean Corp Hgb Conc. 32.4 g/dL (33.0-37.0); Mean Corpuscular Hgb 30.3 pg (27.0-31.0); Mean Corpuscular Volume 93.5 fL (81.0-99.0); Mean Platelet Volume 11.1 fL (7.4-10.4); Platelet Count 157 10^3/uL (130-400); Red Blood Cell Count 3.07 10^6/uL (4.20-5.40); Red Cell Dist. Width 14.9 % (11.5-14.5); White Blood Cell Count 9.2 10^3/uL (4.8-10.8)
[2024-06-26 03:51] LABS: ALT (SGPT) 102 U/L (0-35); AST (SGOT) 189 U/L (14-36); Albumin 2.6 g/dl (3.5-5.0); Alkaline Phosphatase 254 U/L (38-126); Blood Urea Nitrogen 42 mg/dl (7-17); Calcium 7.7 mg/dl (8.4-10.2); Carbon Dioxide 24 mmol/L (22-30); Chloride 101 mmol/L (98-107); Estimated Creatinine Clearance 14 ml/min; Glucose 147 mg/dl (70-99); Potassium 3.2 mmol/L (3.5-5.1); Sodium 138 mmol/L (135-145); Total Bilirubin 0.7 mg/dl (0.2-1.3); Total Protein 4.9 g/dl (6.3-8.2); eGFR 19.94
--- NOTE | 2024-06-26 04:00 | PTCARENOTE ---
sys reviewed, tube fdg incr to 40ml/hr, ett repos center at 22cm
[2024-06-26 04:21] LABS: B.E. -0.1 mmol/L; HCO3 23.8 mmol/L (21-28); O2 Saturation % 98.1 % (94-98); PCO2 35 mmHg (32-35); PO2 112 mmHg (83-108); pH 7.44 (7.35-7.45)
[2024-06-26 04:23] LABS: O2 Therapy VENT
[2024-06-26] MEDS: ZOSYN 50 IV ×3 (05:02→18:13)
[2024-06-26] MEDS: KCL ELIXIR 40 MEQ TUBE (05:02)
[2024-06-26] MEDS: SYNTHROID 112 MCG TUBE (05:02)
--- NOTE | 2024-06-26 05:04 | PTCARENOTE ---
40 kcl elixer via tube given for K-3.2
--- NOTE | 2024-06-26 07:45 | PTCARENOTE ---
Received pt @ change of shift. Intubated/sedated w b/l soft limb restraints/4 rails- see flow sheet. Lethargic; opens eyes spontaneously, no tracking; does not follow commands. Pupils 3mm/sluggish b/l. Weak cough/gag reflex. Parox afib on
monitor. +1 anasarca. SpO2 99% on ventilator settings AC16/450/.40/+5. #7.0 ett/ 22 @ [facility]. Auscultated coarse breath sounds throughout. Suctioned for scant amt of thick/quiñones sputum. +BS, abs soft/round. OG tube secured @ 45cm; Osmolite
1.2 @ 40mL/hr w 25mL/hr H20 flush; tolerating feeds. Inc of loose stools; complete hygiene provided. Thermistor Beckman in place draining yellow urine. Prop/fent gtts infusing per orders- see flow sheet. Repositioned per protocol. Safe environment
maintained.
--- NOTE | 2024-06-26 07:58 | W.PN.HOSP.TC ---
Today's Communication/Plan
-
continue TF
possible IV Lasix later after K repleted
continue attempts to wean vent
continue IV abx
Assessment / Plan
Assessment / Plan
Assessment:
Acute hypoxic respiratory failure
VDRF
- in setting of Influenza A
- wean vent/sedation per ICU team; follow ABGs and serial X-rays
- repeat CXR 06/25 with increased pulmonary edema pattern; IV Lasix per ICU
Septic shock from Influenza A, possible superimposed bacterial PNA
- wean pressors to off
- continue Zosyn day 5; follow cultures
- continue Tamiflu x 5 total days
- lactates improving
- follow fever/WBC trends
Hx of Parox Afib with RVR
- continue Amio orally
- DC IV heparin and resume Eliquis
- Echo: EF: 55-60%, moderate TR, pulmonary HTN
nonischemic myocardial injury
- trop peaked at 1.5
Acute renal insufficiency
- unknown baseline
- monitor Cr, most recently 2.4
- obtain records from PCP if able
Elevated LFTs likely shock liver
- trend CMP
Hypothyroidism
- continue replacement. TSH normal
Vascular dementia
Essential HTN
- hold losartan
Chronic anemia
- monitor Hb
Nutrition
- TFs continue
Hypokalemia - replete prn
DVT ppx: Eliquis
Code: Full
Total Critical Care Time 41 minutes. I was immediately available to the patient and staff. I personally examined, reviewed labs, diagnostic images/reports, interpretations, treatment plans, discussed patient care with other providers and family
or caregivers (if patient is unable to make decisions), entered orders as appropriate and documented the medical record.
Anticipated Discharge: > 48 hours
Subjective/Interval History
-
Date of Service: June 26, 2024
hypercapnic on ABG yesterday, remains intubated, lightly sedated
febrile to 101.1 today- remains on IV zosyn
Objective Data
-
Labs:
Laboratory Results
06/26/24 06/26/24 06/26/24
03:08 04:08 10:00
WBC 9.2
Hgb 9.3 L
Hct 28.7 L
Plt Count 157
HCO3 23.8
Sodium 138 Pending
Potassium 3.2 L Pending
Chloride 101 Pending
Carbon Dioxide 24 Pending
BUN 42 H Pending
Creatinine 2.3 H Pending
Glucose 147 H Pending
Calcium 7.7 L Pending
Total Bilirubin 0.7
AST 189 H
ALT 102 H
Alkaline Phosphatase 254 H
Vital Signs:
Vital Signs
Temp Pulse Resp BP Pulse Ox
100.6 F H 78 19 120/58 97
06/26/24 07:00 06/26/24 06:15 06/26/24 06:15 06/26/24 06:15 06/26/24 06:15
I&O
06/25/24 06/26/24 06/27/24
06:59 06:59 06:59
Intake Total 3177.0 / 3287.9 1557.0 / 1557.0
Output Total 1320 / 1370 2044 / 2044
Balance 1857.0 / 1917.9 -488.0 / -488.0
Physical Exam
-
General: No Apparent Distress, Intubated and Appears Chronically Ill
HEENT: Normocephalic and Atraumatic
Respiratory: Decreased Breath Sounds
Cardiac: Regular Rhythm and S1/S2
GI: Soft and Nontender
Genito-urinary: No Costovertebral Tender
Neuro: Sedated
Psych: Calm
Data Reviewed
-
Critical Care Time (in minutes): 41
Labs: Labs Reviewed by me
[2024-06-26] MEDS: NSS (PRESERVATIVE FREE) 10 ML IV (08:07)
[2024-06-26] MEDS: TAMIFLU 30 MG TUBE (08:07)
[2024-06-26] MEDS: TYLENOL ORAL SOLUTION 650 MG TUBE (08:07)
[2024-06-26] MEDS: ELIQUIS 2.5 MG PO ×2 (08:08→21:06)
[2024-06-26] MEDS: LOW STRENGTH ASPIRIN 81 MG TUBE (08:08)
[2024-06-26] MEDS: MIRALAX TUBE (08:08)
[2024-06-26] MEDS: PACERONE 200 MG TUBE (08:08)
[2024-06-26] MEDS: PROTONIX IV 40 MG IV (08:08)
--- NOTE | 2024-06-26 08:19 | W.PN.CARDCBS ---
Today's Communication / Plan
-
Recurrent PAFib. Some NSVT vs AFib with aberrancy
Amiodarone was increased to 200 mg TID for PAfib with RVR and rates improved and reduced Amiodarone back to 200 mg daily on Jun 25.
Cont Amiodarone at 200 mg daily for now
Transitioned back to Eliquis
TF had been held for high residuals.
Cont med tx of nonMI trop, peak 1.5
Echo reviewed and shows preserved EF
Wt up slightly, enamel machine operator ordered lasix 20 mg IV Jun 25.
Would consider repeating diuresis Jun 26. may consider diuresis in next 24 hrs if pt not extubated.
Monitor cr with diuresis, cr continues to rise
Impression / Plan
-
.
Wastewater Operator: Dr. Hahn ([facility] Cardiology)
Impression:
Presented w/ respiratory distress
VDRF
Influenza A Pneumonia
Sepsis
Elevated troponin peak 1.5
Paroxysmal atrial fibrillation on chronic amiodarone therapy
Chronic OAC with Eliquis
Acute on chronic RF
Hypertension
Hypothyroidism
h/o breast cancer
h/o colon cancer
Vascular dementia
Echo Jun 23 2024: EF 55-60% with RODRIGUEZ, PASP 35-40 mmHg
Plan:
-Presented with respiratory distress. Intubated in ER. Remains intubated and sedated. Admitted with sepsis due to Influenza A pneumonia. Respiratory failure due to flu A
Recurrent PAFib. Some NSVT vs AFib with aberrancy
Amiodarone was increased to 200 mg TID for PAfib with RVR and rates improved and reduced Amiodarone back to 200 mg daily on Jun 25.
Cont Amiodarone at 200 mg daily for now
Transitioned back to Eliquis
TF had been held for high residuals.
Cont med tx of nonMI trop, peak 1.5
Echo reviewed and shows preserved EF
Wt up slightly, enamel machine operator ordered lasix 20 mg IV Jun 25.
Would consider repeating diuresis Jun 26. may consider diuresis in next 24 hrs if pt not extubated.
Monitor cr with diuresis. Cr continues to rise.
Cont tx for Flu PNA
Cont vent management.
Cont Levothyroxine. TSH normal.
HPI: Liza is an 88-year-old female with past medical history of paroxysmal atrial fibrillation maintained on Eliquis and amiodarone, hypertension, hypothyroidism, breast cancer, colon cancer, and vascular dementia. She presented to ER for
evaluation of respiratory distress. History is obtained from as patient is intubated and sedated. He reports they began feeling unwell earlier this week with flulike symptoms. She was given antibiotics and cough medicine by PCP. She
continued to feel poorly. He had EMS come out to evaluate her around 5 PM and reportedly she was stable with normal pulse ox and did not require hospitalization. They went to sleep later that night and when he woke up around 11 PM, he noted that
her breathing sounded labored, so he then called EMS and pulse ox was noted to be in the 70s and she was placed on nonrebreather. On arrival to the ER, she was markedly hypoxemic and in severe distress and required intubation. She remains
intubated and sedated at this time and has been admitted to the ICU with influenza A pneumonia and sepsis. Elevated troponin noted, trending up to 1.52 resulting in cardiology consultation. Has been reports no history of coronary artery disease or
prior stenting. He does note that she had a an echo within the past few months and has never been told that she has a weakened heart muscle
Progress Note - Wastewater Operator
Subjective
Date of Service: June 26, 2024
Pt seen and examined. Pt on vent
Objective
Labs:
06/26/24 03:08
Labs
Hgb 9.3 g/dL (12.0-16.0) L 06/26/24 03:08
Hct 28.7 % (37.0-47.0) L 06/26/24 03:08
Plt Count 157 10^3/uL (130-400) 06/26/24 03:08
PT 16.7 Sec (11.4-14.6) H 06/22/24 00:57
INR 1.30 06/22/24 00:57
APTT Cancelled 06/25/24 11:30
APTT Cancelled 06/25/24 11:30
Sodium 138 mmol/L (135-145) 06/26/24 03:08
Potassium 3.2 mmol/L (3.5-5.1) L 06/26/24 03:08
BUN 42 mg/dl (7-17) H 06/26/24 03:08
Creatinine 2.3 mg/dL (0.6-1.0) H 06/26/24 03:08
Glucose 147 mg/dl (70-99) H 06/26/24 03:08
Vital Signs and I&O:
Vital Signs
Temp Pulse Resp BP Pulse Ox
100.6 F H 78 19 120/58 98
06/26/24 07:00 06/26/24 06:15 06/26/24 06:15 06/26/24 06:15 06/26/24 08:01
Vital Signs
Temp Pulse Resp BP Pulse Ox
100.6 F H 78 19 120/58 98
06/26/24 07:00 06/26/24 06:15 06/26/24 06:15 06/26/24 06:15 06/26/24 08:01
Intake & Output
06/24/24 06/25/24 06/26/24 06/27/24
06:59 06:59 06:59 06:59
Intake Total 5470.7 / 5596.6 3177.0 / 3287.9 1557.0 / 1628.1 142.2 / 142.2
Output Total 1640 / 1665 1320 / 1370 2045 / 2120 150 / 150
Balance 3830.7 / 3931.6 1857.0 / 1917.9 -488.0 / -491.9 -7.8 / -7.8
Physical Exam
Physical Exam
General: sedated on vent, frail appearing
Neck: Negative JVD
Heart: Regular, Negative S3 positive S1/S2, Negative S4, No murmur
Lungs: CTA b/l, negative wheezes/rales/rhonchi
Abd: Positive BS, NT/ND, neg rebound/rigidity/guarding
Ext: Negative cyanosis/clubbing/edema
Neuro: nonfocal
[2024-06-26] MEDS: SUBLIMAZE 50 MCG IV ×3 (08:43→19:41)
--- NOTE | 2024-06-26 09:04 | W.PN.INTV ---
Today's Communication / Plan
Recommendations
Continue mechanical ventilation without change
Replete potassium, once repleted 1 more dose of diuretics
Continue Zosyn for 1 additional day
Continue Tamiflu
Nutritional support
Prognosis is guarded
Assessment
-
88-year-old female with history of atrial fibrillation, vascular dementia, breast cancer, colon cancer, presents with increased shortness of breath since 06/21. Patient refused transport upon first call to 911 but second call, was noted to be
saturating in the 70s, intubated in the ED. Influenza A positive, troponin positive. Given aspirin in the ED, Tamiflu via feeding tube. Patient was also given vancomycin and Zosyn, admitted to ICU for further management
Acute hypoxic respiratory failure-due to influenza A pneumonia/cannot rule out aspiration event/heart failure component
Saturation in the 70s
Intubated in ED 06/21
proBNP 06/22/2024 is 19,500
Hypotension, likely septic shock
Requiring pressors
Elevated troponin
Acute renal insufficiency on CKD suspected
Baseline not known
Elevated lactate
Acute transaminitis
Abnormal EKG
First-degree AV block
Atrial fibrillation/atrial flutter
Conditions present prior to admission
History of recurrent pneumonia
Suspected aspiration syndrome
Follows pulmonary at [place] ([facility])
History of atrial fibrillation
Amiodarone therapy
On Eliquis
Hypothyroidism
History of vascular dementia
Plan/recommendations
Remains critically ill, on mechanical ventilation. Hemodynamics improved-off vasopressors for over 24 hours.
-
Mechanical ventilation settings reviewed:
Continue with volume-cycled ventilation
AC 16/450/5/40%
Pulmonary mechanics adequate.
ETT without secretions.
ABG : 7.44/35/112 (06/26/2024)-continue mechanical ventilation without change.
ABG 7.24/33/90 (06/24/2024)
Chest x-ray 06/25/2024: ET tube in place, increased pulmonary edema pattern. Left hemidiaphragm elevation.
-
Repeat chest x-ray today and daily
ABG tomorrow
-
With sedation breaks: Not following commands but awake. Possibly baseline due to underlying dementia.
Failed spontaneous breathing trial 06/25/2025-increased work of breathing, ABG with mild hypercapnia.
Attempted spontaneous breathing trial at 07/20/2023: Increased work of breathing after few minutes. Trial aborted.
-
Continue to minimize sedation. If possible we will continue with as needed fentanyl only.
With increased triglycerides we will try to avoid propofol.
-
Responded well to diuresis 06/25/2025
Will correct potassium for and then attempt a second dose.
-
Patient also appears to have aspiration syndrome per discussion with at the bedside on admission, pneumonia every year-will need to be addressed later on.
-
Leukocytosis resolved/this morning with low-grade fever. Overall fever curve has improved.
All cultures negative so far
Continue Zosyn for now-likely will opt for short course of antibiotics 5 days. Depending on clinical situation will stop antibiotics after today's last dose.
Discontinued vancomycin, MRSA screening negative.
Remains on Tamiflu-complete 5 days.
-
NSVT/atrial fibrillation.
Heart rate improved
Continue amiodarone.
Continue Eliquis.
-
Creatinine elevated, elevated proBNP noted although does not appear to be in heart failure on exam
Echocardiogram today shows normal biventricular function, underfilled LV, PA pressure 40
Elevated troponin noted-trending lower
Cardiology continues to follow.
Medical management for now
If pulmonary edema pattern persist on x-ray and unable to extubate-received Lasix 20 mg 06/25/2025 with good response.
Hypokalemic this morning, will replete.
Given failure of a spontaneous breathing trial 06/26/2024 will consider additional Lasix.
-
Septic shock: Resolved, off vasopressors for 24 hours or longer.
Metabolic acidosis [id number] gap-resolved 06/25/2024
Discontinue bicarbonate drip today 06/25/2024
Mildly increased lactate acid on admission-no longer trending.
-
Follow creatinine, I's and O's
Beckman catheter
-
Transaminitis noted-stable
Monitor LFTs
Likely secondary to shock, sepsis
Abdominal ultrasound unremarkable
OG tube in place
Hold tube feedings: Patient has diarrhea also had vomiting and high residuals 06/24/2024.
Tube feedings restarted, tolerating
Abdominal exam is benign
Continue to hold tube feedings for today, minimize sedation.
PPI for GI prophylaxis
DVT prophylaxis-Eliquis
Reviewed with critical care nursing, cardiology, primary service
Dr. Nick updated at the bedside. 06/26/2024.
Patient remains critically ill. Has not been able to wean from mechanical ventilation. I discussed the possibility of DNR, for now he will continue with full code. He feels guilty at he did not give the patient the flu vaccine 'soon enough'.
Prognosis is guarded
Critical care statement: A total of 35 minutes of critical care time was provided for this patient today. This includes management of unstable vital signs, evaluation of the patient at bedside, reviewing the patient's pertinent medical records
including ventilator settings, arterial blood gases, radiographs, microbiology, laboratory evaluations and discussion with primary team, critical care nursing, and respiratory therapy.
Subjective Dataa
Subjective Data
Date of Service:
Date of Service: June 26, 2024
Chief Complaint: Toe Former Stitchdowns Follow Up (Acute hypoxemic respiratory failure requiring intubation)
Subjective:
Critically ill, intubated, on mechanical ventilation.
With sedation breaks appears anxious but not following commands-possibly baseline.
Review of Systems
General: Other (Underlying dementia, ET tube in place. Unable to obtain.)
Objective Data
Data Reviewed
Vital Signs / I&O / Oxygen:
Vital Signs
Temp Pulse Resp BP Pulse Ox
100.6 F H 78 19 120/58 98
06/26/24 07:00 06/26/24 06:15 06/26/24 06:15 06/26/24 06:15 06/26/24 08:01
Intake and Output
06/25/24 06/26/24 06/27/24
06:59 06:59 06:59
Intake Total 3177.0 / 3287.9 1557.0 / 1628.1 142.2 / 142.2
Output Total 1320 / 1370 2045 / 2120 150 / 150
Balance 1857.0 / 1917.9 -488.0 / -491.9 -7.8 / -7.8
SaO2 [CPAP] 93
SaO2 [ASV] 96
SaO2 [A/C] 98
SaO2 98
Physical Exam
General: Comfortable (While on sedation) and Other (Left upper extremity midline)
HEENT: Normocephalic and Anicteric
Cardiovascular: S1-S2, Irregular Rhythm, Murmur (n) and Rub (n)
Respiratory: Wheeze (n), Crackles (n), Rhonchi (n), Non-Labored Respirations and ET Tube (No significant secretion )
GI: Soft, Non Distended and Non Tender
Neurology: Lethargic (Sedated but does spontaneously move extremities)
Skin: Cyanosis (n), Jaundice (n), Rash (n) and Bruising (Few)
Labs/Micro/Reports
Lab Data
06/26/24 03:08
Laboratory Results
06/25/24 06/25/24 06/25/24
11:30 11:30 12:27
APTT Cancelled Cancelled
pH Cancelled
pCO2 Cancelled
pO2 Cancelled
HCO3 Cancelled
O2 Delivery Level Cancelled
06/25/24 06/26/24
12:40 04:08
APTT
pH 7.31 L 7.44
pCO2 46 H 35
pO2 67 L 112 H
HCO3 23.2 23.8
O2 Delivery Level Vent
Microbiology
06/22/24 07:33 Blood/Venous Blood Culture - Preliminary
No Growth in 4 days- Final report to follow
06/22/24 07:33 Blood/Venous Blood Culture - Preliminary
No Growth in 4 days- Final report to follow
06/22/24 10:38 Tracheal Aspirate Respiratory Culture - Final
NO GROWTH
06/22/24 10:38 Tracheal Aspirate Gram Stain - Final
06/22/24 15:13 Nose MRSA Screen - Final
No Methicillin Resistant Staphylococcus aureus isolated.
[2024-06-26 10:49] LABS: Blood Urea Nitrogen 43 mg/dl (7-17); Calcium 7.6 mg/dl (8.4-10.2); Carbon Dioxide 23 mmol/L (22-30); Chloride 103 mmol/L (98-107); Estimated Creatinine Clearance 13 ml/min; Glucose 168 mg/dl (70-99); Potassium 3.9 mmol/L (3.5-5.1); Sodium 137 mmol/L (135-145); eGFR 18.95
--- NOTE | 2024-06-26 12:13 | PTCARENOTE ---
Prop/fent off for SAT @ 0800. Pt. eyes wide open but not following commands. SBT attempted; RT switched settings to CPAP 5/5/.40 and pt. became tachypneic into 40's and restless. Dr. Nick made aware and pt. switched by to original AC settings
by RT. Light sedation back on to tx CPOT/RASS- see flow sheet. Low dose levo back on to keep MAP>65- see flow sheet. Complete hygiene given and pt. repositioned per protocol. updated @ bedside this AM. Safe environment maintained.
[2024-06-26] MEDS: LASIX 20 MG IV (16:28)
--- NOTE | 2024-06-26 20:15 | PTCARENOTE ---
assessment technician, pt intub/sedated, eyes open at times but not following commands. SR HR 60s. L midline, 3 IV WNL- Levo, Fent, Prop gtts infusing as documented. Sat 97% on MV Fi02 40%. OGT with TF at goal. Beckman draining adequate amt UO. RT WNL. POC
discussed with family at bedside.
[2024-06-26] MEDS: DIPRIVAN 100 IV (21:06)
[2024-06-27] VITALS (66 sets, daily range): BP systolic 83–162; BP diastolic 46–125; BMI 24.0
[2024-06-27] MEDS: ZOSYN 50 IV ×4 (00:19→17:05)
[2024-06-27 03:39] LABS: Hematocrit 26.1 % (37.0-47.0); Hemoglobin 8.6 g/dL (12.0-16.0); Mean Corpuscular Hgb 30.2 pg (27.0-31.0); Mean Corpuscular Volume 91.6 fL (81.0-99.0); Mean Platelet Volume 10.7 fL (7.4-10.4); Platelet Count 129 10^3/uL (130-400); Red Blood Cell Count 2.85 10^6/uL (4.20-5.40); Red Cell Dist. Width 14.9 % (11.5-14.5)
[2024-06-27 04:10] LABS: ALT (SGPT) 78 U/L (0-35); AST (SGOT) 112 U/L (14-36); Albumin 2.4 g/dl (3.5-5.0); Alkaline Phosphatase 263 U/L (38-126); Blood Urea Nitrogen 44 mg/dl (7-17); Calcium 7.5 mg/dl (8.4-10.2); Carbon Dioxide 26 mmol/L (22-30); Chloride 104 mmol/L (98-107); Estimated Creatinine Clearance 13 ml/min; Glucose 178 mg/dl (70-99); Potassium 3.5 mmol/L (3.5-5.1); Sodium 138 mmol/L (135-145); Total Bilirubin 0.5 mg/dl (0.2-1.3); Total Protein 4.6 g/dl (6.3-8.2); eGFR 18.05
[2024-06-27] MEDS: SYNTHROID 112 MCG TUBE (05:04)
[2024-06-27] MEDS: SUBLIMAZE 100 IV (05:09)
[2024-06-27] MEDS: KCL ELIXIR 20 MEQ PO (06:23)
[2024-06-27] MEDS: LEVOPHED 250 IV (07:29)
[2024-06-27] MEDS: PACERONE 200 MG TUBE (07:34)
[2024-06-27] MEDS: ELIQUIS 2.5 MG PO ×2 (07:34→19:59)
[2024-06-27] MEDS: PROTONIX IV 40 MG IV (07:34)
[2024-06-27] MEDS: LOW STRENGTH ASPIRIN 81 MG TUBE (07:34)
[2024-06-27] MEDS: TAMIFLU 30 MG TUBE (07:34)
[2024-06-27] MEDS: NSS (PRESERVATIVE FREE) 10 ML IV (07:34)
--- NOTE | 2024-06-27 08:16 | PTCARENOTE ---
pt received from previous rn- ett to vent- sedation vacation provided. RT at bedside- attempted wean- pt increasingly restless/agitated, does not follow commands. became tachypneic in the 40s, high pressures, placed back on AC. Sinus tach on
monitor. ogt with tube feeds continue- tube at 45cm. lomeli continues to drain yellow urine. rectal trumpet with loose brown stools- flushed. turned and repositioned, oral care provided. at bedside and updated. all safety precautions in
place.
[2024-06-27] MEDS: PRECEDEX 100 IV ×2 (09:31→15:48)
[2024-06-27] MEDS: TYLENOL ORAL SOLUTION 650 MG TUBE (09:45)
--- NOTE | 2024-06-27 10:13 | PTCARENOTE ---
plan of care discussed with Dr. Nick- pr Dr. Nick hold tube feeds, connect ogt to low int. suction. propofol transitioned to precedex. pt remains restless, not following commands- md aware. ekg completed. Tylenol given for temp.
--- NOTE | 2024-06-27 10:20 | W.PN.HOSP.TC ---
Today's Communication/Plan
-
continue attempts to wean vent/sedation
follow repeat cultures, continue IV Abx
hold off IV Lasix today
d/w at bedside; noted patient is now a DNR
Assessment / Plan
Assessment / Plan
Assessment:
Acute hypoxic respiratory failure
VDRF
- in setting of Influenza A
- wean vent/sedation per ICU team; follow ABGs and serial X-rays
- repeat CXR 06/25 with increased pulmonary edema pattern; s/p IV Lasix per ICU
Septic shock from Influenza A, possible superimposed bacterial PNA
- wean pressors to off
- continue Zosyn day 6; follow cultures
- continue Tamiflu x 5 total days
- lactates improving
- follow fever/WBC trends
Hx of Parox Afib with RVR
- continue Amio orally
- continue Eliquis
- Echo: EF: 55-60%, moderate TR, pulmonary HTN
nonischemic myocardial injury
- trop peaked at 1.5
Acute renal insufficiency
- unknown baseline
- monitor Cr, most recently 2.5
- obtain records from PCP if able
Elevated LFTs likely shock liver
- trend CMP
Hypothyroidism
- continue replacement. TSH normal
Vascular dementia
Essential HTN
- hold losartan
Chronic anemia
- monitor Hb
Nutrition
- TFs continue
Hypokalemia - replete prn
DVT ppx: Eliquis
Code: Full
Total Critical Care Time 41 minutes. I was immediately available to the patient and staff. I personally examined, reviewed labs, diagnostic images/reports, interpretations, treatment plans, discussed patient care with other providers and family
or caregivers (if patient is unable to make decisions), entered orders as appropriate and documented the medical record.
Anticipated Discharge: > 48 hours
Subjective/Interval History
-
Date of Service: June 27, 2024
Persistent fevers although somewhat improved fever curve
Panculture sent
remains sedated/on vent
Objective Data
-
Labs:
Laboratory Results
06/27/24
03:12
WBC 8.0
Hgb 8.6 L
Hct 26.1 L
Plt Count 129 L
Sodium 138
Potassium 3.5
Chloride 104
Carbon Dioxide 26
BUN 44 H
Creatinine 2.5 H
Glucose 178 H
Calcium 7.5 L
Total Bilirubin 0.5
AST 112 H
ALT 78 H
Alkaline Phosphatase 263 H
Vital Signs:
Vital Signs
Temp Pulse Resp BP Pulse Ox
100.2 F 111 20 133/81 97
06/27/24 08:23 06/27/24 10:01 06/27/24 10:01 06/27/24 10:01 06/27/24 10:01
I&O
06/26/24 06/27/24 06/28/24
06:59 06:59 06:59
Intake Total 1557.0 / 1628.1 2159.4 / 2255.5 213.3 / 213.3
Output Total 2044 / 2119 1470 / 1515 700 / 700
Balance -488.0 / -491.9 689.4 / 740.5 -486.7 / -486.7
Physical Exam
-
General: Intubated and Appears Chronically Ill
HEENT: Normocephalic and Atraumatic
Respiratory: Negative Wheezes
Cardiac: Regular Rhythm
GI: Soft
Genito-urinary: No Costovertebral Tender
Neuro: Sedated
Hematologic / Lymphatic: No Lymphadenopathy
Psych: Calm
Data Reviewed
-
Critical Care Time (in minutes): 41
Labs: Labs Reviewed by me
--- NOTE | 2024-06-27 10:55 | W.PN.CARDCBS ---
Today's Communication / Plan
-
Remains in sinus with hx PAFib.
Amiodarone was increased to 200 mg TID for PAfib with RVR and rates improved and reduced Amiodarone back to 200 mg daily on Jun 25.
Cont Amiodarone at 200 mg daily
Cont Eliquis
Cont med tx of nonMI trop, peak 1.5
Wt is flat, urban forester ordered lasix 20 mg IV Jun 25.
Would consider repeating diuresis if wt goes up
Monitor cr with diuresis. Cr continues to rise.
Please recall if needed.
Impression / Plan
-
.
Passenger Flagman: Dr. Hahn ([facility])
Impression:
Presented w/ respiratory distress
VDRF
Influenza A Pneumonia
Sepsis
Elevated troponin peak 1.5
Paroxysmal atrial fibrillation on chronic amiodarone therapy
Chronic OAC with Eliquis
Acute on chronic RF
Hypertension
Hypothyroidism
h/o breast cancer
h/o colon cancer
Vascular dementia
Echo Jun 23 2024: EF 55-60% with RODRIGUEZ, PASP 35-40 mmHg
Plan:
-Presented with respiratory distress. Intubated in ER. Remains intubated and sedated. Admitted with sepsis due to Influenza A pneumonia. Respiratory failure due to flu A
Remains in sinus with hx PAFib.
Amiodarone was increased to 200 mg TID for PAfib with RVR and rates improved and reduced Amiodarone back to 200 mg daily on Jun 25.
Cont Amiodarone at 200 mg daily
Cont Eliquis
Cont med tx of nonMI trop, peak 1.5
Echo reviewed and shows preserved EF
Wt is flat, urban forester ordered lasix 20 mg IV Jun 25.
Would consider repeating diuresis if wt goes up
Monitor cr with diuresis. Cr continues to rise.
Cont tx for Flu PNA
Cont vent management.
Cont Levothyroxine. TSH normal.
Discussed with nursing and with primary service
Please recall if needed.
HPI: Liza is an 88-year-old female with past medical history of paroxysmal atrial fibrillation maintained on Eliquis and amiodarone, hypertension, hypothyroidism, breast cancer, colon cancer, and vascular dementia. She presented to ER for
evaluation of respiratory distress. History is obtained from as patient is intubated and sedated. He reports they began feeling unwell earlier this week with flulike symptoms. She was given antibiotics and cough medicine by PCP. She
continued to feel poorly. He had EMS come out to evaluate her around 5 PM and reportedly she was stable with normal pulse ox and did not require hospitalization. They went to sleep later that night and when he woke up around 11 PM, he noted that
her breathing sounded labored, so he then called EMS and pulse ox was noted to be in the 70s and she was placed on nonrebreather. On arrival to the ER, she was markedly hypoxemic and in severe distress and required intubation. She remains
intubated and sedated at this time and has been admitted to the ICU with influenza A pneumonia and sepsis. Elevated troponin noted, trending up to 1.52 resulting in cardiology consultation. Has been reports no history of coronary artery disease or
prior stenting. He does note that she had a an echo within the past few months and has never been told that she has a weakened heart muscle
Progress Note - Passenger Flagman
Subjective
Date of Service: June 27, 2024
Pt seen and examined. sedated on vent
Objective
Labs:
06/27/24 03:12
06/27/24 03:12
Labs
Hgb 8.6 g/dL (12.0-16.0) L 06/27/24 03:12
Hct 26.1 % (37.0-47.0) L 06/27/24 03:12
Plt Count 129 10^3/uL (130-400) L 06/27/24 03:12
PT 16.7 Sec (11.4-14.6) H 06/22/24 00:57
INR 1.30 06/22/24 00:57
APTT Cancelled 06/25/24 11:30
APTT Cancelled 06/25/24 11:30
Sodium 138 mmol/L (135-145) 06/27/24 03:12
Potassium 3.5 mmol/L (3.5-5.1) 06/27/24 03:12
BUN 44 mg/dl (7-17) H 06/27/24 03:12
Creatinine 2.5 mg/dL (0.6-1.0) H 06/27/24 03:12
Glucose 178 mg/dl (70-99) H 06/27/24 03:12
Vital Signs and I&O:
Vital Signs
Temp Pulse Resp BP Pulse Ox
100.2 F 111 20 133/81 97
06/27/24 08:23 06/27/24 10:01 06/27/24 10:01 06/27/24 10:01 06/27/24 10:01
Vital Signs
Temp Pulse Resp BP Pulse Ox
100.2 F 111 20 133/81 97
06/27/24 08:23 06/27/24 10:01 06/27/24 10:01 06/27/24 10:01 06/27/24 10:01
Intake & Output
06/25/24 06/26/24 06/27/24 06/28/24
06:59 06:59 06:59 06:59
Intake Total 3177.0 / 3287.9 1557.0 / 1628.1 2159.4 / 2255.5 213.3 / 213.3
Output Total 1320 / 1370 2045 / 2120 1470 / 1515 700 / 700
Balance 1857.0 / 1917.9 -488.0 / -491.9 689.4 / 740.5 -486.7 / -486.7
Physical Exam
Physical Exam
General: sedated on vent, chronically ill appearing
Neck: Negative JVD
Heart: Regular, Negative S3 positive S1/S2, Negative S4, No murmur
Lungs: CTA b/l, negative wheezes/rales/rhonchi
Abd: Positive BS, NT/ND, neg rebound/rigidity/guarding
Ext: Negative cyanosis/clubbing/edema
Neuro: nonfocal
--- NOTE | 2024-06-27 11:01 | W.PN.INTV ---
Today's Communication / Plan
Recommendations
Failed spontaneous breathing trial, agitation
Will add Precedex
Minimize fentanyl and propofol
Continue antibiotics for today and discontinue tomorrow
Completed Tamiflu
Continue mechanical ventilation without change
Will add DuoNebs for secretion clearance
Reculture: Sputum, urine, blood.
DNR status
Assessment
-
88-year-old female with history of atrial fibrillation, vascular dementia, breast cancer, colon cancer, presents with increased shortness of breath since 06/21. Patient refused transport upon first call to 911 but second call, was noted to be
saturating in the 70s, intubated in the ED. Influenza A positive, troponin positive. Given aspirin in the ED, Tamiflu via feeding tube. Patient was also given vancomycin and Zosyn, admitted to ICU for further management
Acute hypoxic respiratory failure-due to influenza A pneumonia/cannot rule out aspiration event/heart failure component
Saturation in the 70s
Intubated in ED 06/21
proBNP 06/22/2024 is 19,500
Hypotension, likely septic shock
Requiring pressors
Elevated troponin
Acute renal insufficiency on CKD suspected
Baseline not known
Elevated lactate
Acute transaminitis
Abnormal EKG
First-degree AV block
Atrial fibrillation/atrial flutter
Conditions present prior to admission
History of recurrent pneumonia
Suspected aspiration syndrome
Follows pulmonary at [facility] ([facility])
History of atrial fibrillation
Amiodarone therapy
On Eliquis
Hypothyroidism
History of vascular dementia
Plan/recommendations
Remains critically ill, on mechanical ventilation. Intermittently on low-dose vasopressors.
-
Mechanical ventilation settings reviewed: Mechanical ventilation day #6
Continue with volume-cycled ventilation
AC 16/450/5/40%
Pulmonary mechanics adequate.
ETT without secretions.
Rhonchi bilaterally on exam. Not bronchospastic.
ABG : 7.44/35/112 (06/26/2024)-continue mechanical ventilation without change.
ABG 7.24/33/90 (06/24/2024)
Chest x-ray 06/27/2024: Reviewed, showed mild bilateral patchy airspace disease concerning for developing pneumonia. Slight prominence of the interstitial markings diffusely. Mild pulmonary edema. Left pleural effusion mild. Cardiomegaly.
Moderate elevation of the left hemidiaphragm.
Chest x-ray 06/25/2024: ET tube in place, increased pulmonary edema pattern. Left hemidiaphragm elevation.
-
With sedation breaks: Not following commands but awake. Possibly baseline due to underlying dementia-becomes agitated and tachypneic with every sedation break.
Failed spontaneous breathing trial 06/25/2025-increased work of breathing, ABG with mild hypercapnia.
Attempted spontaneous breathing trial at 07/20/2023: Increased work of breathing after few minutes. Trial aborted.
Will restart outpatient psychotropic medications
-
Will add DuoNebs 3 times a day for secretion clearance.
-
Will minimize sedation: Hopefully can minimize fentanyl and propofol
Will transition to Precedex today 06/27/2024
-
Responded well to diuresis 06/25/2025 and 06/26/2024.
Will continue to intermittently diurese-currently limited by low-dose Levophed use.
Will continue to reassess on a daily basis.
-
Patient also appears to have aspiration syndrome per discussion with at the bedside on admission, pneumonia every year-will need to be addressed later on.
-
Pneumonia:
Leukocytosis resolved/intermittent low-grade fevers. Overall fever curve has improved.
All cultures negative so far
Continue Zosyn for now-likely will opt for short course of antibiotics 5 days. Stop antibiotics today 07-15
Discontinued vancomycin, MRSA screening negative.
Remains on Tamiflu-complete 5 days.
Will repeat a sputum culture
Repeat blood culture
Check a UA
-
NSVT/atrial fibrillation.
Heart rate improved
Continue amiodarone.
Continue Eliquis.
-
Creatinine elevated, elevated proBNP noted although does not appear to be in heart failure on exam
Echocardiogram today shows normal biventricular function, underfilled LV, PA pressure 40
Elevated troponin noted-trending lower
Cardiology continues to follow.
Medical management for now
Status post diuresis 06/25/2024, 06/27/2024.
Will continue with intermittent diuresis depending on hemodynamics.
-
Septic shock: Resolved, off vasopressors for 24 hours or longer.
Suspect low-dose Levophed due to sedation. 1 24. Will attempt to wean off.
Metabolic acidosis [id number] gap-resolved 06/25/2024
Discontinued bicarbonate drip today 06/25/2024
Mildly increased lactate acid on admission-no longer trending.
-
Follow creatinine, I's and O's
Beckman catheter
-
Transaminitis noted-stable
Monitor LFTs
Likely secondary to shock, sepsis
Abdominal ultrasound unremarkable
OG tube in place
Hold tube feedings: Patient has diarrhea also had vomiting and high residuals 06/24/2024.
Tube feedings restarted, tolerating
Abdominal exam is benign
Advance tube feedings. Chest x-ray with distended gastric bubble, will check residuals and attempt NG to suction, hold tube feedings if there is high residuals. Otherwise can start at half of the rate.
PPI for GI prophylaxis
DVT prophylaxis-Eliquis
Reviewed with critical care nursing, cardiology, primary service
Dr. Nick updated at the bedside. 06/26/2024, 06/27/2024.
Discussed with DNR status has been instituted.
-
Patient remains critically ill. Has not been able to wean from mechanical ventilation. I discussed the possibility of DNR, for now he will continue with full code. He feels guilty at he did not give the patient the flu vaccine 'soon enough'.
Prognosis is guarded
Critical care statement: A total of 34 minutes of critical care time was provided for this patient today. This includes management of unstable vital signs, evaluation of the patient at bedside, reviewing the patient's pertinent medical records
including ventilator settings, arterial blood gases, radiographs, microbiology, laboratory evaluations and discussion with primary team, critical care nursing, and respiratory therapy.
Subjective Dataa
Subjective Data
Date of Service:
Date of Service: June 27, 2024
Chief Complaint: Manager Leadership Development Follow Up (Acute hypoxemic respiratory failure requiring intubation)
Subjective:
Remains intubated on mechanical ventilation
On low-dose vasopressors
Unable to wean from mechanical ventilation due to increased work of breathing.
Review of Systems
General: Unobtainable - Sedation
Objective Data
Data Reviewed
Vital Signs / I&O / Oxygen:
Vital Signs
Temp Pulse Resp BP Pulse Ox
100.2 F 111 20 133/81 97
06/27/24 08:23 06/27/24 10:01 06/27/24 10:01 06/27/24 10:01 06/27/24 10:01
Intake and Output
06/26/24 06/27/24 06/28/24
06:59 06:59 06:59
Intake Total 1557.0 / 1628.1 2159.4 / 2255.5 213.3 / 213.3
Output Total 2044 1470 / 1515 700 / 700
Balance -488.0 / -491.9 689.4 / 740.5 -486.7 / -486.7
SaO2 [CPAP] 93
SaO2 [ASV] 96
SaO2 [A/C] 99
SaO2 97
Physical Exam
General: Comfortable (While on sedation) and Other (Left upper extremity midline)
HEENT: Normocephalic and Anicteric
Cardiovascular: S1-S2, Irregular Rhythm, Murmur (n) and Rub (n)
Respiratory: Wheeze (n), Crackles (n), Rhonchi (n), Non-Labored Respirations and ET Tube (No significant secretion )
GI: Soft, Non Distended and Non Tender
Neurology: Lethargic (Sedated but does spontaneously move extremities, increased work of breathing with sedation breaks, not following commands.)
Skin: Cyanosis (n), Jaundice (n), Rash (n) and Bruising (Few)
Labs/Micro/Reports
Lab Data
06/27/24 03:12
06/27/24 03:12
Microbiology
06/22/24 07:33 Blood/Venous Blood Culture - Final
No Growth - Final Report
06/22/24 07:33 Blood/Venous Blood Culture - Final
No Growth - Final Report
06/22/24 10:38 Tracheal Aspirate Respiratory Culture - Final
NO GROWTH
06/22/24 10:38 Tracheal Aspirate Gram Stain - Final
06/22/24 15:13 Nose MRSA Screen - Final
No Methicillin Resistant Staphylococcus aureus isolated.
[2024-06-27] MEDS: CELEXA 10 MG TUBE (11:11)
[2024-06-27] MEDS: ZYPREXA 5 MG TUBE (11:11)
[2024-06-27 11:13] LABS: Urine Albumin Trace (Neg - Trace); Urine Bilirubin Negative (Negative); Urine Character Very Cloudy (Clear); Urine Color Yellow; Urine Glucose Negative (Negative); Urine Ketone Negative (Negative); Urine Leukocyte Negative (Negative); Urine Nitrite Negative (Negative); Urine Occult Blood 3+ (Negative); Urine Urobilinogen Negative (Neg - 1+)
--- NOTE | 2024-06-27 12:13 | PTCARENOTE ---
pt remains restless at times, continues on precedex and fentanyl gtts. cultures sent as per order. assessment unchanged further. afib at times on monitor.
[2024-06-27 13:03] LABS: Urine Amorphous Seen; Urine Squamous Cell 16-20 /LPF (Few)
[2024-06-27 13:04] LABS: Urine Granular Cast >15 /LPF (0)
[2024-06-27 13:05] LABS: Urine White Cell 0-2 /HPF (0-5)
--- NOTE | 2024-06-27 13:11 | CM ---
CM following re: discharge planning.
Discussed in rounds, reviewed pt's chart, met with pt and pt's at bedside. Per Rounds meeting, pt remains intubated, failed spontaneous breathing trial, remains critically ill, continue supportive care.
D/C plan: uncertain at this time and will depend on pt's progress.
CM will follow with discharge plan updates as hospitalization progresses
--- NOTE | 2024-06-27 13:40 | WOUNDNOTE ---
[facility] RN note: Patient seen for HAPU report for R upper lip mucosal pressure injury d/t ETT. Patient's been intubated for about 5 days. R upper lip with 2 small dry scabs. R lower lip with loosened scab. R facial cheek with scabbed abrasion suspect
from ET [place]. Silicone border foam applied to R facial cheek scab. Water soluble lubricant applied to affected area on lip after cleansing with saline. Discussed with MINH Medina who stated patient's sacral skin is intact. Patient is positioned on
her L side. Heels off bed with pillow. Protective foam dressings intact on heels. Patient is on a tube feeding. She is on a Centrea Max air bed. Care plan updated. Updated Dr. Nick. Consult if needed.
[2024-06-27] MEDS: DUONEB 3 ML INH (14:07)
[2024-06-27] MEDS: SUBLIMAZE 50 MCG IV (14:46)
--- NOTE | 2024-06-27 15:02 | PTCARENOTE ---
pt increasingly tachy, cpot score increased, diaphoretic. Dr. Nick aware- fentanyl bolus given as per order. continue precedex and fentanyl gtts. unable to wean pt at this time. continue to hold tube feeds.
[2024-06-27] MEDS: LOPRESSOR 5 MG IV (17:05)
--- NOTE | 2024-06-27 18:39 | PTCARENOTE ---
pt given lopressor for hr- hr improved 100 to 110s. at bedside and remains updated, assessment unchanged further
--- NOTE | 2024-06-27 20:00 | PTCARENOTE ---
dietary manager, pt intub/sedated, eyes open at times but not following commands. L midline, 3 IV WNL- Levo, Fent, Precedex gtt infusing as documented. OGT to LIWS. Beckman draining adequate amt UO. RT WNL. POC discussed with family at bedside.
[2024-06-28] VITALS (71 sets, daily range): BP systolic 85–164; BP diastolic 44–106; BMI 23.2
[2024-06-28] MEDS: PRECEDEX 100 IV ×4 (00:34→22:04)
[2024-06-28] MEDS: TYLENOL ORAL SOLUTION 650 MG TUBE ×3 (01:07→17:33)
[2024-06-28] MEDS: SUBLIMAZE 50 MCG IV ×6 (03:44→23:25)
--- NOTE | 2024-06-28 04:00 | PTCARENOTE ---
no changes in pt assessment.
[2024-06-28 04:22] LABS: Hematocrit 27.4 % (37.0-47.0); Hemoglobin 9.3 g/dL (12.0-16.0); Mean Corp Hgb Conc. 33.9 g/dL (33.0-37.0); Mean Corpuscular Hgb 31.1 pg (27.0-31.0); Mean Corpuscular Volume 91.6 fL (81.0-99.0); Mean Platelet Volume 11.1 fL (7.4-10.4); Platelet Count 163 10^3/uL (130-400); Red Blood Cell Count 2.99 10^6/uL (4.20-5.40); Red Cell Dist. Width 14.4 % (11.5-14.5); White Blood Cell Count 12.4 10^3/uL (4.8-10.8)
[2024-06-28 04:51] LABS: ALT (SGPT) 74 U/L (0-35); AST (SGOT) 88 U/L (14-36); Albumin 2.8 g/dl (3.5-5.0); Alkaline Phosphatase 282 U/L (38-126); Blood Urea Nitrogen 37 mg/dl (7-17); Carbon Dioxide 25 mmol/L (22-30); Chloride 105 mmol/L (98-107); Estimated Creatinine Clearance 15 ml/min; Glucose 128 mg/dl (70-99); Sodium 141 mmol/L (135-145); Total Bilirubin 0.9 mg/dl (0.2-1.3); Total Protein 5.5 g/dl (6.3-8.2); Triglycerides 291 mg/dl (10-149); eGFR 22.25
[2024-06-28] MEDS: SUBLIMAZE 100 IV (05:06)
[2024-06-28] MEDS: SYNTHROID 112 MCG TUBE (05:06)
[2024-06-28] MEDS: LOW STRENGTH ASPIRIN 81 MG TUBE (07:30)
[2024-06-28] MEDS: ELIQUIS 2.5 MG PO ×2 (07:30→20:21)
[2024-06-28] MEDS: ZYPREXA 5 MG TUBE (07:30)
[2024-06-28] MEDS: PROTONIX IV 40 MG IV (07:30)
[2024-06-28] MEDS: CELEXA 10 MG TUBE (07:30)
[2024-06-28] MEDS: PACERONE 200 MG TUBE (07:30)
[2024-06-28] MEDS: NSS (PRESERVATIVE FREE) 10 ML IV (07:30)
--- NOTE | 2024-06-28 08:02 | PTCARENOTE ---
pt received from previous rn- remains ett to vent- placed on wean by respiratory- 8/5 40%, pt tolerating at this time, respiratory rate in the 20s. oral care provided. pt opens eyes but does not follow commands, moves arms and attempts to sit up at
times. levophed off at this time- map>65. remains afib on monitor. lomeli draining yellow urine, ogt to low int. suction. at bedside- verbalized understanding to education and plan of care. all safety precautions in place.
[2024-06-28 09:14] LABS: B.E. 2.3 mmol/L; HCO3 26.4 mmol/L (21-28); O2 Saturation % 97.7 % (94-98); PCO2 38 mmHg (32-35); PO2 97 mmHg (83-108); pH 7.45 (7.35-7.45)
[2024-06-28 09:38] LABS: NT-proBNP > 27000 pg/ml
[2024-06-28] MEDS: LASIX 20 MG IV (10:13)
--- NOTE | 2024-06-28 10:15 | PTCARENOTE ---
@[address] Nick ok to keep pt on fentanyl and precedex for wean. pt intermittently tachypneic. tolerated wean for 2 hours, placed back on ac on vent at approx 1015. Plan of care discussed during rounds with
--- NOTE | 2024-06-28 10:16 | PTCARENOTE ---
0830 Dr. Nick ok to keep pt on fentanyl and precedex for wean. pt intermittently tachypneic. tolerated wean for 2 hours, placed back on ac on vent.
--- NOTE | 2024-06-28 11:12 | W.PN.HOSP.TC ---
Today's Communication/Plan
-
as needed IV Lasix
continue sedation/vent wean attempts
follow cultures, now observing off Abx
prognosis remains poor
Assessment / Plan
Assessment / Plan
Assessment:
Acute hypoxic respiratory failure
VDRF (intubated 06/22)
- in setting of Influenza A
- wean vent/sedation per ICU team; follow ABGs and serial X-rays
- repeat CXR 06/25 with increased pulmonary edema pattern; IV Lasix per ICU
Septic shock from Influenza A, possible superimposed bacterial PNA
- wean pressors to off
- completed 7 day Zosyn course
- completed 5 day Tamiflu course
- lactates improving
- follow fever/WBC trends
Hx of Parox Afib with RVR
- continue Amio orally
- continue Eliquis
- Echo: EF: 55-60%, moderate TR, pulmonary HTN
nonischemic myocardial injury
- trop peaked at 1.5
Acute renal insufficiency
- unknown baseline
- monitor Cr, most recently 2.1
- obtain records from PCP if able
Elevated LFTs likely shock liver
- trend CMP
Hypothyroidism
- continue replacement. TSH normal
Vascular dementia
Essential HTN
- hold losartan
Chronic anemia
- monitor Hb
Nutrition
- TFs continue
Hypokalemia - replete prn
DVT ppx: Eliquis
Code: DNR now
Prognosis poor
Total Critical Care Time 42 minutes. I was immediately available to the patient and staff. I personally examined, reviewed labs, diagnostic images/reports, interpretations, treatment plans, discussed patient care with other providers and family
or caregivers (if patient is unable to make decisions), entered orders as appropriate and documented the medical record.
Anticipated Discharge: > 48 hours
Subjective/Interval History
-
Date of Service: June 28, 2024
remains intubated/sedated
per RN, 2 hour vent wean but became tachypneic and not following commands
Objective Data
-
Labs:
Laboratory Results
06/28/24 06/28/24
03:52 09:02
WBC 12.4 H
Hgb 9.3 L
Hct 27.4 L
Plt Count 163 D
HCO3 26.4
Sodium 141
Potassium 4.0
Chloride 105
Carbon Dioxide 25
BUN 37 H
Creatinine 2.1 H
Glucose 128 H
Calcium 8.0 L
Total Bilirubin 0.9
AST 88 H
ALT 74 H
Alkaline Phosphatase 282 H
Vital Signs:
Vital Signs
Temp Pulse Resp BP Pulse Ox
100.4 F H 107 21 107/68 96
06/28/24 08:22 06/28/24 10:15 06/28/24 10:15 06/28/24 10:15 06/28/24 10:15
I&O
06/27/24 06/28/24 06/29/24
06:59 06:59 06:59
Intake Total 2159.4 / 2255.5 852.8 / 874.1 172.9 / 172.9
Output Total 1470 / 1515 3650 / 3700 220 / 220
Balance 689.4 / 740.5 -2797.2 / -2825.9 -47.1 / -47.1
Physical Exam
-
General: Intubated and Appears Chronically Ill
HEENT: Normocephalic and Atraumatic
Respiratory: Crackles and Decreased Breath Sounds
Cardiac: Regular Rhythm, S1/S2 and Tachycardic
GI: Soft
Neuro: Sedated
Data Reviewed
-
Critical Care Time (in minutes): 42
Labs: Labs Reviewed by me
--- NOTE | 2024-06-28 11:54 | W.PN.INTV ---
Today's Communication / Plan
Recommendations
Continue mechanical ventilation without change
Will try to minimize sedation
Diuresis with Lasix once
Repeat troponin
Complete antibiotics today
Follow repeat cultures
Nutritional support-tube feed
Follow hemoglobin
Prognosis is poor
Assessment
-
88-year-old female with history of atrial fibrillation, vascular dementia, breast cancer, colon cancer, presents with increased shortness of breath since 06/21. Patient refused transport upon first call to 911 but second call, was noted to be
saturating in the 70s, intubated in the ED. Influenza A positive, troponin positive. Given aspirin in the ED, Tamiflu via feeding tube. Patient was also given vancomycin and Zosyn, admitted to ICU for further management
Acute hypoxic respiratory failure-due to influenza A pneumonia/cannot rule out aspiration event/heart failure component
Saturation in the 70s
Intubated in ED 06/21
proBNP 06/22/2024 is 19,500
Hypotension, likely septic shock
Requiring pressors
Elevated troponin
Acute renal insufficiency on CKD suspected
Baseline not known
Elevated lactate
Acute transaminitis
Abnormal EKG
First-degree AV block
Atrial fibrillation/atrial flutter
Conditions present prior to admission
History of recurrent pneumonia
Suspected aspiration syndrome
Follows pulmonary at [place] ([facility])
History of atrial fibrillation
Amiodarone therapy
On Eliquis
Hypothyroidism
History of vascular dementia
Plan/recommendations
Remains critically ill, on mechanical ventilation. Intermittently on low-Lose dose vasopressors.
-
Mechanical ventilation settings reviewed: Mechanical ventilation day #7
Continue with volume-cycled ventilation
AC 16/450/5/40%
Pulmonary mechanics adequate.
ETT with thin secretions. Not excessive.
Rhonchi bilaterally on exam. Not bronchospastic.
ABG : 7.44/35/112 (06/26/2024)-continue mechanical ventilation without change.
-
Chest x-ray 06/28/2024, reviewed continues to demonstrate patchy bilateral opacities no significant change compared to prior. Mild interstitial prominence suggestive pulmonary edema. Small left pleural effusion.
Chest x-ray 06/27/2024: showed mild bilateral patchy airspace disease concerning for developing pneumonia. Slight prominence of the interstitial markings diffusely. Mild pulmonary edema. Left pleural effusion mild. Cardiomegaly. Moderate
elevation of the left hemidiaphragm.
-
With sedation breaks: Not following commands but awake. Possibly baseline due to underlying dementia-becomes agitated and tachypneic with every sedation break.
-
Failed spontaneous breathing trial 06/25/2025-increased work of breathing, ABG with mild hypercapnia.
Attempted spontaneous breathing trial at 07/20/2023: Increased work of breathing after few minutes. Trial aborted.
Spontaneous breathing trial 06/28/2024: 2 hours on Precedex and low-dose fentanyl as well as the patient had increased work of breathing. ABG 7.45/38/97. Unfortunately, not adequate for extubation as the patient had a respiratory rate of mid 20s to
30s. Likely hypercapnic.
She was placed back on assist control.
Will restart outpatient psychotropic medications.
-
Continue DuoNebs 3 times a day for secretion clearance.
-
Will minimize sedation: Continue to minimize fentanyl and propofol. Target light sedation.
Continue Precedex today 06/27/2024 with attempt to wean above.
-
Responded well to diuresis 06/25/2025 and 06/26/2024.
Levophed has been discontinued
Will continue to reassess on a daily basis for need of intermittent Lasix giving pulmonary edema pattern on x-ray.
-
Patient also appears to have aspiration syndrome per discussion with at the bedside on admission, pneumonia every year-will need to be addressed later on.
-
Pneumonia:
Leukocytosis resolved/intermittent low-grade fevers. Overall fever curve has improved.
All cultures negative so far
Complete antibiotics 06/28/2024. Zosyn.
Discontinued vancomycin, MRSA screening negative.
Remains on Tamiflu-complete 5 days.
Tracheal aspirate 06/27/2024: Tiffanie, likely contaminant.
Repeat blood culture 06/27/2024-no growth
Urinalysis: Unremarkable 06/27/2024
Benign abdominal exam, mild diarrhea with tube feedings.
At this point no other source of infection, complete antibiotics and observe.
-
NSVT/atrial fibrillation. Rate controlled
Continue amiodarone.
Continue Eliquis.
Creatinine elevated, (suspect chronic kidney disease component elevated proBNP noted although does not appear to be in heart failure on exam
Echocardiogram 06/23/2024 shows normal biventricular function, underfilled LV, PA pressure 40. Dilated right atrium. Dilated left atrium. Moderate TR. No pericardial effusion. IVC is normal size.
Elevated troponin noted-trending lower
Cardiology continues to follow.
Medical management for now
Status post diuresis 06/25/2024, 06/27/2024.
Repeat proBNP greater than 27,000
Lasix 20 mg IV now. Will readdress later for further diuretics. Her weight has been stable.
Most recent EKG 06/27/2024: Atrial fibrillation with rapid ventricular response. Anterior infarct age undetermined.
Will repeat EKG
Obtain troponin
-
Septic shock: Resolved, off vasopressors for 24 hours or longer.
Suspect low-dose Levophed due to sedation. 1-20 24. Will attempt to wean off.
Metabolic acidosis [id number] gap-resolved 06/25/2024
Discontinued bicarbonate drip today 06/25/2024
Mildly increased lactate acid on admission-no longer trending.
-
Follow creatinine, I's and O's
Beckman catheter
-
Transaminitis noted-stable
Monitor LFTs
Likely secondary to shock, sepsis
Abdominal ultrasound unremarkable
Anemia: Chronic. Stable.
Normal platelet count
OG tube in place
Hold tube feedings: Patient has diarrhea also had vomiting and high residuals 06/24/2024.
Tube feedings restarted, tolerating
Abdominal exam is benign
Continue tube feedings carefully.
PPI for GI prophylaxis
DVT prophylaxis-Eliquis
Reviewed with critical care nursing, cardiology, primary service
Dr. Nick updated at the bedside. 06/26/2024, 06/27/2024, 06/28/2024.
DNR status
Dr. Nick discussed extensively with 06/28/2024. Also discussed with patient's outpatient primary care doctor Dr. Hu.
Patient's , upset about the lack of progress. Asking to transfer to the different hospital. Also threatening with litigation. He he was explained that unfortunately his is very deconditioned, with advanced dementia, Frequent
pneumonias, primary care doctor states that the patient has been declining over the last year significantly.
I told him that likely this is going to be a prolonged mechanical ventilation due to slow progress with improvement and advanced age and comorbidities. Will continue with supportive care
-
Prognosis poor
-
Case discussed with primary care team as well.
-
Critical care statement: A total of 45 minutes of critical care time was provided for this patient today. This includes management of unstable vital signs, evaluation of the patient at bedside, reviewing the patient's pertinent medical records
including ventilator settings, arterial blood gases, radiographs, microbiology, laboratory evaluations and discussion with primary team, critical care nursing, and respiratory therapy.
Subjective Dataa
Subjective Data
Date of Service:
Date of Service: June 28, 2024
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
Subjective:
No overnight events
Intermittent fevers
Increased work of breathing with sedation breath
Not following command
Review of Systems
General: Other (Unable to obtain due to acuity)
Objective Data
Data Reviewed
Vital Signs / I&O / Oxygen:
Vital Signs
Temp Pulse Resp BP Pulse Ox
100.4 F H 107 21 107/68 96
06/28/24 08:22 06/28/24 10:15 06/28/24 10:15 06/28/24 10:15 06/28/24 11:49
Intake and Output
06/27/24 06/28/24 06/29/24
06:59 06:59 06:59
Intake Total 2159.4 / 2255.5 852.8 / 874.1 210.5 / 210.5
Output Total 1470 / 1515 3650 / 3700 320 / 320
Balance 689.4 / 740.5 -2797.2 / -2825.9 -109.5 / -109.5
SaO2 [CPAP] 95
SaO2 [ASV] 99
SaO2 [A/C] 96
SaO2 97
Physical Exam
General: Comfortable (While on sedation) and Other (Left upper extremity midline)
HEENT: Normocephalic and Anicteric
Cardiovascular: S1-S2, Irregular Rhythm, Murmur (n) and Rub (n)
Respiratory: Wheeze (n), Crackles (n), Rhonchi (n), Non-Labored Respirations and ET Tube (No significant secretion )
GI: Soft, Non Distended and Non Tender
Neurology: Lethargic (Sedated but does spontaneously move extremities, increased work of breathing with sedation breaks, not following commands.)
Skin: Cyanosis (n), Jaundice (n), Rash (n) and Bruising (Few)
Labs/Micro/Reports
Lab Data
06/28/24 03:52
06/28/24 03:52
Laboratory Results
06/28/24
09:02
pH 7.45
pCO2 38 H
pO2 97
HCO3 26.4
O2 Delivery Level
Microbiology
06/27/24 11:06 Blood/Venous Blood Culture - Preliminary
No Growth in 24 hours- Final report to follow
06/27/24 14:58 Tracheal Aspirate Respiratory Culture - Preliminary
Tiffanie albicans
06/27/24 14:58 Tracheal Aspirate Gram Stain - Preliminary
06/27/24 10:19 Blood/Venous Blood Culture - Preliminary
No Growth in 24 hours- Final report to follow
06/22/24 07:33 Blood/Venous Blood Culture - Final
No Growth - Final Report
06/22/24 07:33 Blood/Venous Blood Culture - Final
No Growth - Final Report
--- NOTE | 2024-06-28 12:22 | PTCARENOTE ---
pt continues to be restless and agitated, high peak pressures on vent, tachypnea- given prn fentanyl as per order, gtt increased to 75mcg/hr per protocol.
--- NOTE | 2024-06-28 12:45 | W.PN.UPDATE ---
Update Note
Progress Note Update
Abdominal exam is benign
Patient has bowel sounds
Restart trickle tube feedings today and advance as tolerated. Will check residuals.
Minimal diarrhea but given fevers will obtain C. difficile. Suspicion not very high but possible.
Discussed with nursing.
--- NOTE | 2024-06-28 13:01 | PTCARENOTE ---
restarted trickle tube feeds per Dr. Nick order. pt turned and repositioned.
--- NOTE | 2024-06-28 15:20 | PTCARENOTE ---
fentanyl gtt decreased to 25mcg for wean per Dr. Nick. pt placed back on 8/5 pressure support. tolerating wean at this time.
--- NOTE | 2024-06-28 18:25 | PTCARENOTE ---
pt tolerated wean for approx 2.5 hours this afternoon, placed back on assist control, fentanyl and precedex continue as per order. at bedside and remains updated.
--- NOTE | 2024-06-28 20:00 | PTCARENOTE ---
Received pt at change of shift. HR SR w/ 1st degree AV block + PACs on telemetry. Blinks spontaneously, does not follow commands. Pupils b/l 3mm, sluggish. Gag reflex present. SpO2 94% on vent settings as follows AC 16/450/40%/+5. #7 ETT at 22cm
at the lip. Coarse breath sounds b/l throughout. Suctioned for small amount clear sputum. OG tube at 45cm. Tube feeding running at 10mL/hr w 25mL/hr flush. Rectal trumpet in place. Beckman in place draining yellow urine. Precedex/fent gtts infusing
as ordered. RASS -1. Pt agitated, pulling restraints. Very resistant to movement.
[2024-06-29] VITALS: BP 114/55
--- NOTE | 2024-06-29 00:37 | W.PN.UPDATE ---
Addendum entered and electronically signed by IRENA Johnson 06/29/24 00:43:
Respiratory having difficulty with getting ABGs sticks, phuong placed for frequent ABGs during vent weaning and hemodynamic monitoring.
Original Note:
Update Note
Progress Note Update
Procedure Note: Arterial Line�
� Right Wrist Arrow 20 (08/27)�
Diagnosis:��Influenza A
IV Line Comments: Uneventful Procedure�
Juan's test completed pre-procedure: Yes�
A-Line Comments: Sterile technique as per standard protocol, Ultrasound guided insertion�
Functioning A-line in situ: Yes�
A-line Insertion Start Time:�0000�
A-line in at:��0005
[2024-06-29] MEDS: SUBLIMAZE 100 IV ×2 (00:39→13:22)
[2024-06-29 00:46] LABS: B.E. 3.9 mmol/L; HCO3 27.6 mmol/L (21-28); Ionized Calcium 1.15 mMOL/L (1.15-1.33); O2 Saturation % 98.9 % (94-98); PCO2 37 mmHg (32-35); PO2 217 mmHg (83-108); Potassium 3.5 mMOL/L (3.5-5.1); Sodium 141 mMOL/L (136-145); pH 7.48 (7.35-7.45)
[2024-06-29 00:47] LABS: O2 Therapy %Oxygen/Room Air 40
--- NOTE | 2024-06-29 01:00 | PTCARENOTE ---
Pt continues to tolerate new vent settings as follows AC 16/350/40%/+5. SpO2 95%. PRN fentanyl boluses per order - see AUG. Precedex gtt titrated up - see worklist. AUTO TIRE RECAPPER Michael Smith at bedside, R arterial line placed. A-line zeroed per protocol.
ABG lab drawn and sent. RASS currently -2. No further change in assessment.
[2024-06-29] MEDS: SUBLIMAZE 50 MCG IV ×9 (01:51→22:11)
[2024-06-29 04:00] VITALS: BP 107/48
--- NOTE | 2024-06-29 04:00 | PTCARENOTE ---
Pt asynchronous w vent, CPOT 7, fentanyl gtt titrated up per order. Prn fent bolus. Pt washed w/ CHG wipes, linens changed. Tube feed advanced to 20mL/hr with 25mL/hr flush per order.
--- NOTE | 2024-06-29 04:50 | PTCARENOTE ---
Pt asynchronous with vent. Wet gurgling heard coming from pt's mouth. Tube feed paused. Oral suction and in-line suction produced small amount clear secretions. Pt appears to be trying to talk through tube, attempting to sit up and reaching towards
tube. PRN fent bolus.
[2024-06-29] MEDS: PRECEDEX 100 IV (04:56)
[2024-06-29] MEDS: SYNTHROID 112 MCG TUBE (05:49)
[2024-06-29 06:00] VITALS: BMI 22.8
[2024-06-29 06:04] LABS: Hematocrit 23.7 % (37.0-47.0); Hemoglobin 7.8 g/dL (12.0-16.0); Mean Corp Hgb Conc. 32.9 g/dL (33.0-37.0); Mean Corpuscular Hgb 31.2 pg (27.0-31.0); Mean Corpuscular Volume 94.8 fL (81.0-99.0); Mean Platelet Volume 10.9 fL (7.4-10.4); Platelet Count 167 10^3/uL (130-400); Red Cell Dist. Width 14.4 % (11.5-14.5); White Blood Cell Count 10.4 10^3/uL (4.8-10.8)
[2024-06-29] MEDS: LEVOPHED 250 IV (06:08)
[2024-06-29 06:17] LABS: Blood Urea Nitrogen 39 mg/dl (7-17); Calcium 7.8 mg/dl (8.4-10.2); Carbon Dioxide 25 mmol/L (22-30); Chloride 106 mmol/L (98-107); Estimated Creatinine Clearance 15 ml/min; Glucose 137 mg/dl (70-99); Potassium 3.5 mmol/L (3.5-5.1); Sodium 142 mmol/L (135-145); eGFR 21.04
--- NOTE | 2024-06-29 06:20 | PTCARENOTE ---
Pt continues to try and sit up, very rigid, asynchronous w/ vent. CPOT 7. Fentanyl gtt titrated up to 100mcgs/hr. Tube feed remains off. Pt with active emesis, OG tube to suction. Drainage resembles tube feed.
[2024-06-29] MEDS: ZYPREXA 5 MG TUBE (07:51)
[2024-06-29] MEDS: ELIQUIS 2.5 MG PO ×2 (07:51→20:30)
[2024-06-29] MEDS: PROTONIX IV 40 MG IV (07:51)
[2024-06-29] MEDS: PACERONE 200 MG TUBE (07:51)
[2024-06-29] MEDS: NSS (PRESERVATIVE FREE) 10 ML IV (07:52)
[2024-06-29] MEDS: LOW STRENGTH ASPIRIN 81 MG TUBE (07:52)
[2024-06-29] MEDS: CELEXA 10 MG TUBE (07:52)
--- NOTE | 2024-06-29 08:32 | W.PN.INTV ---
Today's Communication / Plan
Recommendations
Discontinue Precedex
Chest x-ray
Abdominal x-ray
Hold antibiotics
Monitor fevers
May give additional diuresis today
Hold tube feedings-vomiting
Light sedation
Continue mechanical ventilation without change
Will decrease FiO2 as able
Continue anticoagulation
Assessment
-
88-year-old female with history of atrial fibrillation, vascular dementia, breast cancer, colon cancer, presents with increased shortness of breath since 06/21. Patient refused transport upon first call to 911 but second call, was noted to be
saturating in the 70s, intubated in the ED. Influenza A positive, troponin positive. Given aspirin in the ED, Tamiflu via feeding tube. Patient was also given vancomycin and Zosyn, admitted to ICU for further management
Acute hypoxic respiratory failure-due to influenza A pneumonia/cannot rule out aspiration event/heart failure component
Saturation in the 70s
Intubated in ED 06/21
proBNP 06/22/2024 is 19,500
Hypotension, likely septic shock
Requiring pressors
Elevated troponin
Acute renal insufficiency on CKD suspected
Baseline not known
Elevated lactate
Acute transaminitis
Abnormal EKG
First-degree AV block
Atrial fibrillation/atrial flutter
Conditions present prior to admission
History of recurrent pneumonia
Suspected aspiration syndrome
Follows pulmonary at [place] ([facility])
History of atrial fibrillation
Amiodarone therapy
On Eliquis
Hypothyroidism
History of vascular dementia
Plan/recommendations
Remains critically ill, on mechanical ventilation. Intermittently on low-dose dose vasopressors.
-
Mechanical ventilation settings reviewed: Mechanical ventilation day #8
Continue with volume-cycled ventilation
AC 16/350/5/70%
This morning 06/29/2024 with increased oxygen requirements, some vomiting earlier today. Unclear whether there was some mild aspiration event.
ETT with thin secretions. Not excessive.
Rhonchi bilaterally on exam. Not bronchospastic.
AB.40 8/37/217 (06/29/2024)
ABG : 7.44/35/112 (06/26/2024)
-
Given oxygen desaturations repeat chest x-ray this morning 06/29/2024.
-
Chest x-ray 06/28/2024, continues to demonstrate patchy bilateral opacities no significant change compared to prior. Mild interstitial prominence suggestive pulmonary edema. Small left pleural effusion.
Chest x-ray 06/27/2024: showed mild bilateral patchy airspace disease concerning for developing pneumonia. Slight prominence of the interstitial markings diffusely. Mild pulmonary edema. Left pleural effusion mild. Cardiomegaly. Moderate
elevation of the left hemidiaphragm.
-
This morning restless, on Precedex and fentanyl-not comfortable mechanical ventilation.
Will discontinue Precedex as there is no plan for extubation
Restart propofol
Continue fentanyl
Will keep at lowest dose possible to maintain comfort.
Continue with daily sedation breaks.
With sedation breaks: Not following commands but awake. Possibly baseline due to underlying dementia-becomes agitated and tachypneic with every sedation break.
-
Failed spontaneous breathing trial 06/25/2025-increased work of breathing, ABG with mild hypercapnia.
Attempted spontaneous breathing trial at 07/20/2023: Increased work of breathing after few minutes. Trial aborted.
Spontaneous breathing trial 06/28/2024: 2 hours on Precedex and low-dose fentanyl as well as the patient had increased work of breathing. ABG 7.45/38/97. Unfortunately, not adequate for extubation as the patient had a respiratory rate of mid 20s to
30s. Likely hypercapnic.
She was placed back on assist control.
Continue outpatient psychotropic medications. Unclear if there is absorption due to vomiting.
Suspect ongoing muscle weakness also impairing ability to wean at this point.
Supportive care will continue
-
Continue DuoNebs 3 times a day for secretion clearance.
-
Responded well to diuresis 06/25/2025 and 06/26/2024 and 06/28/2024.
Fluid balance negative 300
Levophed has been discontinued
proBNP greater than 27,000
Troponin mildly [id number] per Cardiology.
Will continue to reassess on a daily basis for need of intermittent Lasix giving pulmonary edema pattern on x-ray. Repeat chest x-ray today.
-
Patient also appears to have aspiration syndrome per discussion with at the bedside on admission, pneumonia every year-will need to be addressed later on.
-
Pneumonia:
Persistent low-grade fevers
Leukocytosis resolved
Repeat cultures negative.
C. difficile negative
Repeat chest x-ray 06/29/2024
Abdominal x-ray today due to vomiting
All cultures negative so far.
Cannot rule out aspiration pneumonitis as a reason for the fever
Completed a course of Zosyn 06/28/2024
Completed a course of Tamiflu 06/28/2024
Observe off antibiotics
Discontinue Precedex may be related to low-grade fevers as well
-
Prior cultures:
MRSA screening negative.
Remains on Tamiflu-complete 5 days.
Tracheal aspirate 06/27/2024: Tiffanie, likely contaminant.
Repeat blood culture 06/27/2024-no growth
Urinalysis: Unremarkable 06/27/2024
On anticoagulation-less likely thromboembolic event
-
NSVT/atrial fibrillation. Slightly tachycardic-likely due to agitation.
Continue amiodarone.
Continue Eliquis.
Creatinine elevated, (suspect chronic kidney disease component elevated proBNP noted although does not appear to be in heart failure on exam
Echocardiogram 06/23/2024 shows normal biventricular function, underfilled LV, PA pressure 40. Dilated right atrium. Dilated left atrium. Moderate TR. No pericardial effusion. IVC is normal size.
Elevated troponin noted-trending [id number] per cardiology.
Cardiology has signed off
-
Status post diuresis 06/25/2024, 06/27/2024, 06/28/2024 continue to reassess daily.
Repeat proBNP greater than 27,000
Will readdress later for further diuretics. Her weight has been stable.
Most recent EKG 06/27/2024: Atrial fibrillation with rapid ventricular response. Anterior infarct age undetermined.
-
Septic shock: Resolved, off vasopressors for 24 hours or longer.
Levophed has been discontinued since 06/27/2023. Intermittently requiring low-dose likely due to sedation.
Metabolic acidosis [id number] gap-resolved 06/25/2024
Discontinued bicarbonate drip today 06/25/2024
Mildly increased lactate acid on admission-no longer trending.
-
Follow creatinine, I's and O's
Beckman catheter
-
Transaminitis noted-stable
Monitor LFTs
Likely secondary to shock, sepsis
Abdominal ultrasound unremarkable
Anemia: Chronic. Stable- Continue to follow will transfuse for hemoglobin less than 7
Normal platelet count
OG tube in place
Hold tube feedings: Patient has diarrhea also had vomiting and high residuals 06/24/2024.
Vomiting 06/29/2024-tube feedings on hold.
Abdominal exam is benign-decreased bowel sounds suspect ileus
C. difficile negative
Head of the bed elevation, aspiration precaution
PPI for GI prophylaxis
DVT prophylaxis-Eliquis
Reviewed with critical care nursing, cardiology, primary service
Dr. Nick updated at the bedside. 06/26/2024, 06/27/2024, 06/28/2024, 06/29/2024.
Dr. Nick also updated patient's primary care doctor again on 06/29/2024 via phone.
DNR status
Dr. Nick discussed extensively with 06/28/2024. Also discussed with patient's outpatient primary care doctor Dr. Hu.
Patient's , upset about the lack of progress. Asking to transfer to the different hospital. Also threatening with litigation. He he was explained that unfortunately his is very deconditioned, with advanced dementia, Frequent
pneumonias, primary care doctor states that the patient has been declining over the last year significantly.
I told him that likely this is going to be a prolonged mechanical ventilation due to slow progress with improvement and advanced age and comorbidities. Will continue with supportive care
-
Prognosis poor
-
Case discussed with primary care team as well.
-
Critical care statement: A total of 40 minutes of critical care time was provided for this patient today. This includes management of unstable vital signs, evaluation of the patient at bedside, reviewing the patient's pertinent medical records
including ventilator settings, arterial blood gases, radiographs, microbiology, laboratory evaluations and discussion with primary team, critical care nursing, and respiratory therapy.
Subjective Dataa
Subjective Data
Date of Service:
Date of Service: June 29, 2024
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
Subjective:
This morning, restless, agitated despite Precedex and fentanyl.
Patient vomited
Also has some oxygen desaturation
Has not required vasopressors
Not following commands
Review of Systems
General: Other (No following commands, sedated, delirious)
Objective Data
Data Reviewed
Vital Signs / I&O / Oxygen:
Vital Signs
Temp Pulse Resp BP Pulse Ox
99.7 F 110 22 120/53 94
06/29/24 07:22 06/29/24 07:51 06/29/24 06:00 06/29/24 07:51 06/29/24 08:05
Intake and Output
06/28/24 06/29/24 06/30/24
06:59 06:59 06:59
Intake Total 852.8 / 874.1 1057.5 / 1057.5
Output Total 3650 / 3700 1355 / 1355
Balance -2797.2 / -2825.9 -297.5 / -297.5
SaO2 [CPAP] 95
SaO2 [ASV] 94
SaO2 [A/C] 96
SaO2 94
Physical Exam
General: Other ( restless) and Other (Left upper extremity midline)
HEENT: Normocephalic and Anicteric
Cardiovascular: S1-S2, Irregular Rhythm, Murmur (n) and Rub (n)
Respiratory: Wheeze (n), Crackles (n), Rhonchi (Mild scattered bilaterally) and ET Tube (No significant secretion )
GI: Soft, Non Distended, Non Tender and Other (Decreased bowel sounds)
Neurology: Lethargic (Sedated but does spontaneously move extremities, increased work of breathing with sedation breaks, not following commands.)
Skin: Cyanosis (n), Jaundice (n), Rash (n) and Bruising (Few)
Labs/Micro/Reports
Lab Data
06/29/24 05:45
06/29/24 05:45
Laboratory Results
06/28/24 06/29/24
09:02 00:38
pH 7.45 7.48 H
pCO2 38 H 37 H
pO2 97 217 H
HCO3 26.4 27.6
O2 Delivery Level %oxygen/room air 40
Microbiology
06/28/24 12:55 Feces/Stool C. difficile GDH Antigen & Toxins - Final
Negative for toxigenic C.difficile
06/27/24 11:06 Blood/Venous Blood Culture - Preliminary
No Growth in 24 hours- Final report to follow
06/27/24 14:58 Tracheal Aspirate Respiratory Culture - Preliminary
Tiffanie albicans
06/27/24 14:58 Tracheal Aspirate Gram Stain - Preliminary
06/27/24 10:19 Blood/Venous Blood Culture - Preliminary
No Growth in 24 hours- Final report to follow
06/22/24 07:33 Blood/Venous Blood Culture - Final
No Growth - Final Report
06/22/24 07:33 Blood/Venous Blood Culture - Final
No Growth - Final Report
[2024-06-29] MEDS: DIPRIVAN 100 IV ×2 (09:00→16:06)
[2024-06-29 09:04] VITALS: BP 84/36
--- NOTE | 2024-06-29 09:20 | PTCARENOTE ---
report received, assessments per work list. patient agitated, attempting to sit up, very rigid, biting ETT. tachypneic. does not follow commands or make eye contact. ETT suctioned for copious amounts thick quiñones sputum. with agitation, pulse oximeter
84, in afib. tachycardic. RT at bedside. oxygen increased. fentanyl bolus administered, precedex increased without effect. in school suspension aide at bedside. updated with events of the morning, he discussed plan of care with spouse. ogt to LIS, draining quiñones
fluid. clamped for medications. lomeli draining yellow bety urine. wrist restraints maintained for patient safety. propofol initiated, precedex weaned to off, during transition on propofol and off precedex, patient briefly hypotensive, levophed
resumed.
[2024-06-29 09:39] LABS: Triglycerides 285 mg/dl (10-149)
--- NOTE | 2024-06-29 09:40 | CON.ID ---
Consultation
-
Date/Time Consultation Requested: June 29, [id number]
Date/Time Consultation Performed: June 29, [id number]
Requesting Provider: Dr. Robert Nick
Performing Provider: Dr. Dianne Funez
Reason for Consultation: Fevers
Chief Complaint / Past History
Chief Complaint
Cough
History of Present Illness
History obtained from the at bedside and from review of medical records. 88-year-old female with history of vascular dementia, hypertension, who presented to the ER on June 22 with 2 day history of worsening cough, shortness of breath,
and weakness. had similar symptoms and was tested positive for influenza A on June 21. Patient did not get tested. Her PCP prescribed antibiotics. Her condition worsened and therefore EMS was called. O2 sat noted to be 70%. She was
intubated in the ER for acute hypoxemic respiratory failure. She was febrile 103.9, hypotensive. White count 18.9. Influenza A positive. Initial CXR pneumonitis vs pulm edema. June 22 sputum culture was negative. Admission blood cultures
negative. She completed a course of Oseltamivir and Zosyn through 06/25. Also receiving Lasix for diuresis. However she started having fevers send June 26. Blood cultures x 2 negative to date. C. difficile negative. Repeat sputum culture
Tiffanie albicans. Patient vomited this morning. Tube feeds currently on hold. Chest x-ray appears worse. Per , patient has not received her influenza vaccine this season. He states patient wants to go home.
Past History
Additional Past Medical History:
Vascular dementia with behavioral disturbance
HTN
Afib
Hypothyroidism
Colon cancer s/p partial colectomy
Breast cancer s/p lumpectomy
Allergy History:
codeine Allergy (Verified 06/22/24 01:34)
Rash
Medications Reviewed: Yes
Current Antibiotics:
s/p oseltamivir
s/p Zosyn
Social History
Tobacco: Non-Smoker
Alcohol: None
Drug: None
Personal:
Family History
Family History: Not Pertinent
Review of Systems
Review of Systems
Unable to obtain due to dementia.
Vital Signs
Temp Pulse Resp BP Pulse Ox
99.7 F 110 22 120/53 94
06/29/24 07:22 06/29/24 07:51 06/29/24 06:00 06/29/24 07:51 06/29/24 08:05
Selected Entries
06/28/24
17:20 06/29/24
03:38
Temp 101.0 F H 100.4 F H
Physical Exam
Physical Exam
Constitutional: Acutely Ill and Chronically Ill
Eyes: No Conjunctival Hemorrhage and Sclera Anicteric
Cardiovascular: S1/S2 and Other (Tachycardic)
Pulmonary: Coarse (anteriorly. On vent.)
Gastrointestinal: Soft
Genito-Urinary: Beckman and Clear Urine
Extremities: Edema; Negative Erythema
Neurological: Awake
Lab / Diagnostic Study Results
06/29/24 05:45
06/29/24 05:45
Abs Immat Gran (auto) Cancelled 06/24/24 06:00
Absolute Neuts (auto) Cancelled 06/24/24 06:00
Absolute Lymphs (auto) Cancelled 06/24/24 06:00
Absolute Monos (auto) Cancelled 06/24/24 06:00
Absolute Basos (auto) Cancelled 06/24/24 06:00
Total Counted 100 06/23/24 03:30
Immature Gran % Cancelled 06/24/24 06:00
Neutrophils % Cancelled 06/24/24 06:00
Lymphocytes % Cancelled 06/24/24 06:00
Monocytes % Cancelled 06/24/24 06:00
Eosinophils % Cancelled 06/24/24 06:00
Basophils % Cancelled 06/24/24 06:00
Abs Neuts (Manual) 8.9 10^3/uL (1.4-6.5) H 06/23/24 03:30
Segmented Neutrophils 78 % (42-75) H 06/23/24 03:30
Band Neutrophils 11 % (0-3) H 06/23/24 03:30
Lymphocytes (Manual) 9 % (20-51) L 06/23/24 03:30
PT 16.7 Sec (11.4-14.6) H 06/22/24 00:57
INR 1.30 06/22/24 00:57
Lactic Acid 2.8 mmol/L (0.7-2.0) H 06/22/24 05:35
Urine WBC 0-2 /HPF (0-5) 06/27/24 10:02
Ur Squamous Epith Cells 16-20 /LPF (Few) 06/27/24 10:02
Microbiology Results
Micro:
06/27/24 14:58 Respiratory Culture - Final
Tracheal Aspirate Tiffanie albicans
Gram Stain - Final
06/28/24 12:55 C. difficile GDH Antigen & Toxins - Final
Feces/Stool Negative for toxigenic C.difficile
06/27/24 11:06 Blood Culture - Preliminary
Blood/Venous No Growth in 24 hours- Final report to follow
06/27/24 10:19 Blood Culture - Preliminary
Blood/Venous No Growth in 24 hours- Final report to follow
06/22/24 07:33 Blood Culture - Final
Blood/Venous No Growth - Final Report
06/22/24 07:33 Blood Culture - Final
Blood/Venous No Growth - Final Report
06/22/24 10:38 Respiratory Culture - Final
Tracheal Aspirate NO GROWTH
Gram Stain - Final
06/22/24 15:13 MRSA Screen - Final
Nose No Methicillin Resistant Staphylococcus aureus isolated.
06/22/24 00:35 Influenza Types A & B (MIGUEL) - Final
Nasal Swab Influenza A Positive, NAAT
06/29/23 CXR: personally reviewed with Dr. Nick, worsening bilateral opacities.
06/28/23 CXR: Patchy bibasilar opacities, which may represent pneumonia, aspiration, or subsegmental atelectasis. No significant change compared to her study. Mild interstitial prominence, suggestive of mild pulmonary edema.
06/27/23 CXR: Mild bilateral patchy airspace disease concerning for developing pneumonia. New.
06/26/23 CXR: Persistent bilateral interstitial and alveolar pulmonary opacities with a similar distribution compared to the chest radiograph from 06/25/2024. Suspected small left pleural effusion.
06/22/24 CXR: Left hemidiaphragm elevation redemonstrated. Small left pleural effusion with associated probable atelectasis, slightly progressed.
Assessment / Plan
# Influenza A infection
# VDRF
- Unvaccinated status
- s/p Oseltamivir and Zosyn through 06/25
# Recurrence of fever since 06/26
# Suspect post influenza Staph aureus/Strep PNA
# Possible aspiration PNA
- CXR personally reviewed - increased opacities R>L
- Repeat bcx's neg
- C. diff neg. (diarrhea resolved0
- Start Vancomycin IV, cefepime, and metronidazole
- Follow temps.
# MELINDA on CKD
- Abx renally adjusted
# Conditions PECAN PICKER
Vascular dementia with behavioral disturbance
HTN
Afib
Hypothyroidism
Colon cancer s/p partial colectomy
Breast cancer s/p lumpectomy
Care Review
Plan reviewed with: Physician (Dr. Nick)
[2024-06-29 10:00] VITALS: BP 84/48
[2024-06-29] MEDS: VENTOLIN NEBULES 2.5 MG INH ×3 (10:02→19:55)
[2024-06-29 11:24] VITALS: BP 84/54
--- NOTE | 2024-06-29 11:24 | PHA.VAN.IN ---
Assessment
- Assessment
Renal Function: Appears elevated from baseline
Maximum Temperature: 101
Minimum Temperature: 99.7
Concomitant Antimicrobials: Cefepime, metronidazole
Plan
- Plan
Initial / Loading Dose: Vanc 1250mg--21.4mg/kg--administration pending
Maintenance Regimen: PRN by level
Monitoring: R 1/5 AM
Pharmacokinetics Vancomycin I
- -
Patient Age: 88
Patient Sex: Female
Vancomycin Day #: 1
Indication: Pulmonary/Respiratory
Requesting Provider: Armin
Height / Weight:
Height 5 ft 3 in
Actual Weight 58.4 kg
IBW in k.4
Adjusted BW in k.8
Pertinent Past Medical History: MELINDA on CKD; Completed course of oseltamivir and Pip-tazo 06/25
- Vital Signs / Lab Results
Temp Pulse Resp BP Pulse Ox
99.8 F 131 21 120/53 97
06/29/24 10:24 06/29/24 11:00 06/29/24 11:00 06/29/24 07:51 06/29/24 11:10
Lab Results - Hematology
06/27/24 06/28/24 06/29/24
03:12 03:52 05:45
WBC 8.0 12.4 H 10.4
Lab Results - Chemistry
06/27/24 06/28/24 06/29/24
03:12 03:52 05:45
BUN 44 H 37 H 39 H
Creatinine 2.5 H 2.1 H 2.2 H
Estimated Creat Clear 13 15 15
Albumin 2.4 L 2.8 L
Lab Results - Urine
06/27/24
10:02
Urine Nitrite Negative
Ur Leukocyte Esterase Negative
Urine WBC 0-2
Ur Squamous Epith Cells 16-20
Microbiology Results
06/27/24 11:06 Blood Culture - Preliminary
Blood/Venous No Growth in 48 hours- Final report to follow
06/27/24 10:19 Blood Culture - Preliminary
Blood/Venous No Growth in 48 hours- Final report to follow
06/27/24 14:58 Respiratory Culture - Final
Tracheal Aspirate Tiffanie albicans
Gram Stain - Final
06/28/24 12:55 C. difficile GDH Antigen & Toxins - Final
Feces/Stool Negative for toxigenic C.difficile
06/22/24 07:33 Blood Culture - Final
Blood/Venous No Growth - Final Report
06/22/24 07:33 Blood Culture - Final
Blood/Venous No Growth - Final Report
[2024-06-29] MEDS: STERILE WATER FOR INJECTION 10 ML IV (11:26)
[2024-06-29] MEDS: MAXIPIME 2000 MG IV (11:26)
[2024-06-29] MEDS: VANCOCIN 275 MG IV (11:37)
--- NOTE | 2024-06-29 11:38 | W.PN.UPDATE ---
Update Note
Progress Note Update
Precedex discontinued-patient now persistently tachycardic
On low-dose Levophed-will transition to Sylvain-Synephrine.
May need to get cardiology involved again-patient on amiodarone and beta-blockers down tube. With recent vomiting unclear whether being absorbed.
Continue with head of the bed elevation
Tube feedings on hold
NG tube to suction
Infectious disease consulted for evaluation as the patient is persistently febrile-suspect after aspiration. Just completed his Zosyn course.
All cultures so far has been negative other than Tiffanie in the sputum that likely is contaminant
Primary care doctor Dr. Phan updated over the phone, at the request of the family.
[2024-06-29] MEDS: NEO-SYNEPHRINE 250 IV (12:10)
[2024-06-29 12:25] LABS: Blood Urea Nitrogen 38 mg/dl (7-17); Carbon Dioxide 18 mmol/L (22-30); Chloride 106 mmol/L (98-107); Estimated Creatinine Clearance 15 ml/min; Glucose 133 mg/dl (70-99); Magnesium 1.7 mg/dl (1.6-2.3); Potassium 3.9 mmol/L (3.5-5.1); Sodium 143 mmol/L (135-145); eGFR 21.04
--- NOTE | 2024-06-29 12:41 | PTCARENOTE ---
patient increasingly more agitated in spite of fentanyl bolus, propofol titration per work list. paient in [id number]'s. discussed with wet press tender. noesynephrine initiated, levophed off. multiple runs VT. labs sent. stock broker supervisor consulted. heart
rate improved with levophed off. spouse verbalized he wanted to transfer his spouse to [facility]. wet press tender, hospitalist informed by tiger text. continues to suction for copious amounts quiñones secretions. breath sounds unchanged
[2024-06-29] MEDS: TYLENOL ORAL SOLUTION 650 MG TUBE (12:47)
--- NOTE | 2024-06-29 12:50 | W.PN.CARDCBS ---
Today's Communication / Plan
-
Reconsultation for A-fib possible nonsustained VT versus aberrancy, favor aberrancy
Agree with IV amiodarone
Impression / Plan
-
.
Molding And Trim Installer: Dr. Hahn ([facility])
Impression:
Presented w/ respiratory distress
VDRF
Reconsultation for nonsustained V. tach versus A-fib with aberrancy 06/29/2024
Influenza A Pneumonia
Aspiration pneumonia
Sepsis
Non-[place] ischemic injury, troponin peak 1.5
Paroxysmal atrial fibrillation on chronic amiodarone therapy
Chronic OAC with Eliquis
Acute on chronic RF
Hypertension
Hypothyroidism
h/o breast cancer
h/o colon cancer
Vascular dementia
Echo Jun 23 2024: EF 55-60% with RODRIGUEZ, PASP 35-40 mmHg
Plan:
Asked to see patient regarding recurrence of A-fib with possible nonsustained VT versus A-fib with aberrancy.
Suspect it is A-fib with aberrancy
Unable to give beta-blockers with hypotension requiring pressors
Will start IV amiodarone
Cont tx for Flu PNA and likely aspiration pneumonia
Cont vent management.
Discussed with pre parole counseling aide as well as nursing.
Discussed with at bedside
HPI: Liza is an 88-year-old female with past medical history of paroxysmal atrial fibrillation maintained on Eliquis and amiodarone, hypertension, hypothyroidism, breast cancer, colon cancer, and vascular dementia. She presented to ER for
evaluation of respiratory distress. History is obtained from as patient is intubated and sedated. He reports they began feeling unwell earlier this week with flulike symptoms. She was given antibiotics and cough medicine by PCP. She
continued to feel poorly. He had EMS come out to evaluate her around 5 PM and reportedly she was stable with normal pulse ox and did not require hospitalization. They went to sleep later that night and when he woke up around 11 PM, he noted that
her breathing sounded labored, so he then called EMS and pulse ox was noted to be in the 70s and she was placed on nonrebreather. On arrival to the ER, she was markedly hypoxemic and in severe distress and required intubation. She remains
intubated and sedated at this time and has been admitted to the ICU with influenza A pneumonia and sepsis. Elevated troponin noted, trending up to 1.52 resulting in cardiology consultation. Has been reports no history of coronary artery disease or
prior stenting. He does note that she had a an echo within the past few months and has never been told that she has a weakened heart muscle
Progress Note - Molding And Trim Installer
Subjective
Date of Service: June 29, 2024
. Asked to see patient again regarding episodes of possible nonsustained V. tach and rapid A-fib. Intubated and sedated
Objective
Labs:
06/29/24 05:45
06/29/24 12:02
Labs
Hgb 7.8 g/dL (12.0-16.0) L 06/29/24 05:45
Hct 23.7 % (37.0-47.0) L 06/29/24 05:45
Plt Count 167 10^3/uL (130-400) 06/29/24 05:45
PT 16.7 Sec (11.4-14.6) H 06/22/24 00:57
INR 1.30 06/22/24 00:57
APTT Cancelled 06/25/24 11:30
APTT Cancelled 06/25/24 11:30
Sodium 143 mmol/L (135-145) 06/29/24 12:02
Sodium Cancelled 06/29/24 12:02
Potassium 3.9 mmol/L (3.5-5.1) 06/29/24 12:02
Potassium Cancelled 06/29/24 12:02
BUN 38 mg/dl (7-17) H 06/29/24 12:02
BUN Cancelled 06/29/24 12:02
Creatinine 2.2 mg/dL (0.6-1.0) H 06/29/24 12:02
Creatinine Cancelled 06/29/24 12:02
Glucose 133 mg/dl (70-99) H 06/29/24 12:02
Glucose Cancelled 06/29/24 12:02
Troponins
06/28/24 06/28/24
08:59 12:20
Troponin I 1.770 H* Cancelled
Vital Signs and I&O:
Vital Signs
Temp Pulse Resp BP Pulse Ox
99.8 F 135 28 120/53 93
06/29/24 10:24 06/29/24 12:00 06/29/24 12:00 06/29/24 07:51 06/29/24 12:00
Vital Signs
Temp Pulse Resp BP Pulse Ox
99.8 F 135 28 120/53 93
06/29/24 10:24 06/29/24 12:00 06/29/24 12:00 06/29/24 07:51 06/29/24 12:00
Intake & Output
06/27/24 06/28/24 06/29/24 06/30/24
06:59 06:59 06:59 06:59
Intake Total 2159.4 / 2255.5 852.8 / 874.1 1057.5 / 1085.9 247.1 / 247.1
Output Total 1470 / 1515 3650 / 3700 1355 / 1355 145 / 145
Balance 689.4 / 740.5 -2797.2 / -2825.9 -297.5 / -269.1 102.1 / 102.1
Physical Exam
Physical Exam
General: Intubated and sedate
Neck: Supple, no JVD, HJR, carotids +2 B/L, no bruits bilaterally.
Heart: Non displaced PMI, irregular, no murmurs, No S3, S4, no rubs.
Lungs: Scattered rhonchi
Extremities: No clubbing, cyanosis or edema bilaterally.
Neuro: Sedate
[2024-06-29] MEDS: FLAGYL 500 MG 100 IV ×2 (13:25→21:39)
--- NOTE | 2024-06-29 13:27 | W.PN.UPDATE ---
Update Note
Progress Note Update
I discussed with the [place] transfer center.
We went over care plan of the patient and they agree with current management.
They will accept the patient per family request. There is no medical necessity for the transfer as this is a family request.
Will wait for a bed to be available.
For now continue with current care
[2024-06-29] MEDS: CORDARONE 518 MG IV (15:27)
--- NOTE | 2024-06-29 15:45 | W.PN.HOSP.TC ---
Today's Communication/Plan
-
continue IV Abx per ID
continue IV Amiodarone
tube feeds held
Pending transfer to [place]
Assessment / Plan
Assessment / Plan
Assessment:
Acute hypoxic respiratory failure
VDRF (intubated 06/22)
- in setting of Influenza A
- wean vent/sedation per ICU team; follow ABGs and serial X-rays
- repeat CXR 06/25 with increased pulmonary edema pattern; IV Lasix per ICU as indicated
Septic shock from Influenza A, possible superimposed bacterial PNA
- continue pressors
- completed 7 day Zosyn course and completed 5 day Tamiflu course
- recurrent fevers; ID consulted and placed on IV vanco, Cefepime, Flagyl
- follow fever/WBC trends
Hx of Parox Afib with RVR
- continue Amiodarone IV
- continue Eliquis
- Echo: EF: 55-60%, moderate TR, pulmonary HTN
nonischemic myocardial injury
- trop peaked at 1.5 initially, now back to 1.77
Acute renal insufficiency
- unknown baseline
- monitor Cr, most recently 2.2
- obtain records from PCP if able
Elevated LFTs likely shock liver
- trend CMP
Hypothyroidism
- continue replacement. TSH normal
Vascular dementia
Essential HTN
- hold losartan
Chronic anemia
- monitor Hb
Nutrition
- TFs continue
Hypokalemia - replete prn
DVT ppx: Eliquis
Code: DNR/DNI
Prognosis poor
Total Critical Care Time 40 minutes. I was immediately available to the patient and staff. I personally examined, reviewed labs, diagnostic images/reports, interpretations, treatment plans, discussed patient care with other providers and family or
caregivers (if patient is unable to make decisions), entered orders as appropriate and documented the medical record.
Dispo: Pending transfer to [place] - Dr. García, critical care.
Anticipated Discharge: > 48 hours
Subjective/Interval History
-
Date of Service: June 29, 2024
restless and agitated earlier this AM, with vomiting requiring TF hold
remains sedated/intubated, not following commands
Transfer arranged to [place] per family request.
Later developed aberrancy vs VT and Amiodarone started
Objective Data
-
Labs:
Laboratory Results
06/29/24 06/29/24 06/29/24
05:45 12:02 12:02
WBC 10.4
Hgb 7.8 L
Hct 23.7 L
Plt Count 167
Sodium 142 143 Cancelled
Potassium 3.5 3.9
Chloride 106
Carbon Dioxide 25
BUN 39 H
Creatinine 2.2 H
Glucose 137 H
Calcium 7.8 L
06/29/24 06/29/24 06/29/24
12:02 12:02 12:02
WBC
Hgb
Hct
Plt Count
Sodium
Potassium Cancelled
Chloride 106 Cancelled
Carbon Dioxide 18 L Cancelled
BUN 38 H
Creatinine
Glucose
Calcium
06/29/24 06/29/24 06/29/24
12:02 12:02 12:02
WBC
Hgb
Hct
Plt Count
Sodium
Potassium
Chloride
Carbon Dioxide
BUN Cancelled
Creatinine 2.2 H Cancelled
Glucose 133 H Cancelled
Calcium 8.0 L
06/29/24
12:02
WBC
Hgb
Hct
Plt Count
Sodium
Potassium
Chloride
Carbon Dioxide
BUN
Creatinine
Glucose
Calcium Cancelled
Vital Signs:
Vital Signs
Temp Pulse Resp BP Pulse Ox
100.8 F H 129 18 120/53 99
06/29/24 15:00 06/29/24 14:45 06/29/24 14:45 06/29/24 07:51 06/29/24 14:45
I&O
06/28/24 06/29/24 06/30/24
06:59 06:59 06:59
Intake Total 852.8 / 874.1 1057.5 / 1085.9 794.1 / 794.1
Output Total 3650 / 3700 1355 / 1355 190 / 190
Balance -2797.2 / -2825.9 -297.5 / -269.1 604.1 / 604.1
Physical Exam
-
General: No Apparent Distress
HEENT: Normocephalic and Atraumatic
Respiratory: Rhonchi; Negative Wheezes
Cardiac: Irregular Rhythm
GI: Soft
Neuro: Sedated
Psych: Calm
Data Reviewed
-
Critical Care Time (in minutes): 40
Labs: Labs Reviewed by me
--- NOTE | 2024-06-29 16:12 | PTCARENOTE ---
reassessed. increased nonverbal pain cues, medicated with fentanyl bolus per prn order. continues to require frequent suctioning for copious secretions. amiodarone gtt initiated. decreased urine output. (educational assistant teacher aware per earlier communication).
daughter at bedside
[2024-06-29] MEDS: LASIX 20 MG IV (17:26)
--- NOTE | 2024-06-29 17:44 | PTCARENOTE ---
Addendum entered by Brigida Browne RN 06/29/24 17:47:
patient now in sinus tachycardia
Original Note:
game farm helper updated, orders received. game farm helper in to speak with daughter. per daughter request, patient wedding band and engagement ring removed from patient and handed to daughter. lasix given, oxygen decreased to 50%
--- NOTE | 2024-06-29 18:20 | PTCARENOTE ---
medicated with fentanyl per prn order, very rigid, repositioned. patient in and out of atrial fib.
--- NOTE | 2024-06-29 21:05 | PTCARENOTE ---
Pt received start of shift, HR SR/ST w/ frequent PACs on telemetry. Propofol, Neosynephrine, Fent, and Amio infusing - see worklist. Pt with slight movement in upper extremities. Corneal reflexes present. Pt not blinking spontaneously. Not following
commands. Pupils 1mm b/l, reactive but sluggish. #7 ETT at 22cm at the lip. Pt tolerating vent settings AC as follows: 16/350/+5/50%. Lung sounds b/l coarse rhonchi w/ inspiratory and expiratory wheezes present. OG tube at 45cm, no feed infusing.
Rectal trumpet in place. Beckman catheter in place draining clear yellow urine.
Pt's in room. After this RN scanned and administered medication, pt's was observed looking at the computer w/ pt's information. Screen was opened to 'My List' segment of [employer]. Pt's then observed with phone out in what
appeared to be an attempt to take a picture. This was confirmed when pt's asked his son to 'come over here and take a picture of this'. This RN approached pt's and told him he cannot do that. [employer] browser locked down.
[2024-06-30] MEDS: SUBLIMAZE 100 IV ×2 (00:33→11:00)
[2024-06-30] MEDS: DIPRIVAN 100 IV ×3 (00:43→19:15)
[2024-06-30] MEDS: NEO-SYNEPHRINE 250 IV (01:04)
--- NOTE | 2024-06-30 01:17 | PTCARENOTE ---
Pt continuing to tolerate vent settings as follows AC 16/350/+5/45%, SpO2 92-94%. Occasionally asynchronous. PRN fent bolus administered - see MAR. Suctioned ETT for moderate amount thick quiñones secretion. Oral suction moderate amount thick mucus.
Assessment otherwise unchanged.
[2024-06-30] MEDS: SUBLIMAZE 50 MCG IV ×5 (04:20→16:10)
[2024-06-30 05:02] LABS: B.E. 0.6 mmol/L; HCO3 26.5 mmol/L (21-28); PCO2 48 mmHg (32-35); PO2 62 mmHg (83-108); pH 7.35 (7.35-7.45)
[2024-06-30 05:16] LABS: Hematocrit 23.9 % (37.0-47.0); Hemoglobin 7.7 g/dL (12.0-16.0); Mean Corp Hgb Conc. 32.2 g/dL (33.0-37.0); Mean Corpuscular Hgb 30.7 pg (27.0-31.0); Mean Corpuscular Volume 95.2 fL (81.0-99.0); Mean Platelet Volume 10.4 fL (7.4-10.4); Platelet Count 282 10^3/uL (130-400); Red Blood Cell Count 2.51 10^6/uL (4.20-5.40); Red Cell Dist. Width 14.6 % (11.5-14.5); White Blood Cell Count 25.4 10^3/uL (4.8-10.8)
[2024-06-30 05:41] LABS: Blood Urea Nitrogen 39 mg/dl (7-17); Calcium 7.5 mg/dl (8.4-10.2); Carbon Dioxide 25 mmol/L (22-30); Chloride 105 mmol/L (98-107); Estimated Creatinine Clearance 14 ml/min; Glucose 128 mg/dl (70-99); Potassium 3.6 mmol/L (3.5-5.1); Sodium 144 mmol/L (135-145); eGFR 19.94
[2024-06-30 05:46] LABS: Vancomycin Random 16.3 ug/ml
--- NOTE | 2024-06-30 05:57 | PTCARENOTE ---
Pt continues to tolerate vent settings, occasionally asynchronous with vent. When interacted with, pt becomes agitated and restless. PRN fentanyl bolus - see MAR. Neosynephrine, propofol, and fentanyl gtts continuing to infuse - see worklist. No
further change in assessment.
[2024-06-30 06:00] VITALS: BMI 22.7
[2024-06-30] MEDS: SYNTHROID 112 MCG TUBE (06:26)
[2024-06-30] MEDS: FLAGYL 500 MG 100 IV ×3 (06:26→21:06)
[2024-06-30 06:36] VITALS: BP 113/71
[2024-06-30] MEDS: VENTOLIN NEBULES 2.5 MG INH ×4 (06:57→20:05)
[2024-06-30 07:29] VITALS: BP 105/65
[2024-06-30] MEDS: PROTONIX IV 40 MG IV (07:34)
[2024-06-30] MEDS: NSS (PRESERVATIVE FREE) 10 ML IV (07:34)
[2024-06-30] MEDS: ELIQUIS 2.5 MG PO ×2 (07:35→20:16)
[2024-06-30] MEDS: MIRALAX 17 GRAMS TUBE (07:35)
[2024-06-30] MEDS: ZYPREXA 5 MG TUBE (07:35)
[2024-06-30] MEDS: CELEXA 10 MG TUBE (07:35)
[2024-06-30] MEDS: LOW STRENGTH ASPIRIN 81 MG TUBE (07:35)
--- NOTE | 2024-06-30 07:52 | PHA.VAN.FU ---
Vancomycin Assessment / Plan
- Assessment
Renal Function: Stable
WBC's are: Trending Up
In the past 24 hrs, patient has been: Febrile (Tmax = 101.4)
Concomitant Antimicrobials: Cefepime, metronidazole
- Assessment - Therapeutic Drug Monitoring
Random Level: R = 16.3 ~ 17hrs post Vanc 1250mg
- Dosing Plan
Continue: Dose by level
Dosing by Level: Hold off on dosing today
- Monitoring Plan
Random Level: 1/6 AM
- Follow Up
Pharmacy will continue to follow.
Vancomycin Follow UP
- -
Patient Age: 88
Patient Sex: Female
Vancomycin Day #: 2
Indication: Pulmonary/Respiratory
Requesting Provider: Armin
Height / Weight:
Height 5 ft 3 in
Actual Weight 58.1 kg
IBW in k.4
Adjusted BW in k.8
Pertinent Past Medical History: MELINDA on CKD; Completed course of oseltamivir and Pip-tazo 06/25
- Vital Signs / Lab Results
Temp Pulse Resp BP Pulse Ox
98.3 F 98 18 117/48 97
06/30/24 07:22 06/30/24 06:57 06/30/24 06:57 06/29/24 17:26 06/30/24 07:07
Lab Results - Hematology
06/28/24 06/29/24 06/30/24
03:52 05:45 04:55
WBC 12.4 H 10.4 25.4 H
Lab Results - Chemistry
06/28/24 06/29/24 06/29/24
03:52 05:45 12:02
BUN 37 H 39 H 38 H
Creatinine 2.1 H 2.2 H
Estimated Creat Clear 15 15
Albumin 2.8 L
06/29/24 06/29/24 06/29/24
12:02 12:02 12:02
BUN Cancelled
Creatinine 2.2 H Cancelled
Estimated Creat Clear 15 Cancelled
Albumin
06/30/24
04:55
BUN 39 H
Creatinine 2.3 H
Estimated Creat Clear 14
Albumin
Microbiology Results
06/27/24 11:06 Blood Culture - Preliminary
Blood/Venous No Growth in 48 hours- Final report to follow
06/27/24 10:19 Blood Culture - Preliminary
Blood/Venous No Growth in 48 hours- Final report to follow
06/27/24 14:58 Respiratory Culture - Final
Tracheal Aspirate Tiffanie albicans
Gram Stain - Final
06/28/24 12:55 C. difficile GDH Antigen & Toxins - Final
Feces/Stool Negative for toxigenic C.difficile
Therapeutic Drug Monitoring
Random Vancomycin 16.3 ug/ml 06/30/24 04:55
[2024-06-30] MEDS: LASIX 20 MG IV ×2 (08:39→22:07)
[2024-06-30] MEDS: PACERONE 400 MG PO ×3 (09:26→21:06)
--- NOTE | 2024-06-30 09:27 | W.PN.ID1 ---
Date of Service
Date of Service: June 30, 2024
Today's Communication
Continue Vanco/cefepime/metronidazole
Assessment / Plan
# Recurrence of fever since 06/26
# Suspect post- influenza Staph aureus, including MRSA, PNA vs aspiration PNA
# Leukocytosis
# Shock on pressor
# VDRF since 06/22
- Of note pt received Zosyn 06/22 to 06/27/24
- 06/29/24 CXR with progression of lung opacities
- Repeat bcx's neg
- C. diff neg. (diarrhea resolved)
- Continue Vancomycin IV, cefepime, and metronidazole (d2)
- Fever trending down
- New leukocytosis today
- Follow temps and wbc.
# Influenza A infection, present on admission
- Unvaccinated status
- s/p Oseltamivir (06/22 to 06/28)
# MELINDA on CKD
- Abx renally adjusted
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
Vascular dementia with behavioral disturbance
HTN
Afib
Hypothyroidism
Colon cancer s/p partial colectomy
Breast cancer s/p lumpectomy
Chief Complaint
-: Fever and Pneumonia
Subjective / Review of Systems
at bedside.
Per nurse, decreased respiratory secretions
Vital Signs / Physical Exam
Vital Signs
Vital Signs
Temp Pulse Resp BP Pulse Ox
98.3 F 100 18 116/50 97
06/30/24 07:22 06/30/24 09:26 06/30/24 06:57 06/30/24 09:26 06/30/24 07:07
Physical Exam
Constitutional: Acutely Ill and Chronically Ill
Eyes: Sclera Anicteric
Cardiovascular: Regular Rate and S1/S2
Pulmonary: Coarse (Decreased coarse BS anteriorly) and Other (on vent)
Gastrointestinal: Soft, Non Tender, Non Distended and Normal Bowel Sounds
Genito-Urinary: Beckman and Clear Urine
Extremities: Edema
Objective Data
Lab Data
Lab Results
06/30/24 04:55
06/30/24 04:55
PT 16.7 Sec (11.4-14.6) H 06/22/24 00:57
INR 1.30 06/22/24 00:57
APTT Cancelled 06/25/24 11:30
APTT Cancelled 06/25/24 11:30
Estimated Creat Clear 14 ml/min 06/30/24 04:55
Lactic Acid 2.8 mmol/L (0.7-2.0) H 06/22/24 05:35
Total Bilirubin 0.9 mg/dl (0.2-1.3) 06/28/24 03:52
AST 88 U/L (14-36) H 06/28/24 03:52
ALT 74 U/L (0-35) H 06/28/24 03:52
Alkaline Phosphatase 282 U/L (38-126) H 06/28/24 03:52
Most recent labs reviewed.
Micro Results:
06/27/24 11:06 Blood Culture - Preliminary
Blood/Venous No Growth in 48 hours- Final report to follow
06/27/24 10:19 Blood Culture - Preliminary
Blood/Venous No Growth in 48 hours- Final report to follow
06/27/24 14:58 Respiratory Culture - Final
Tracheal Aspirate Tiffanie albicans
Gram Stain - Final
06/28/24 12:55 C. difficile GDH Antigen & Toxins - Final
Feces/Stool Negative for toxigenic C.difficile
06/22/24 07:33 Blood Culture - Final
Blood/Venous No Growth - Final Report
06/22/24 07:33 Blood Culture - Final
Blood/Venous No Growth - Final Report
06/22/24 10:38 Respiratory Culture - Final
Tracheal Aspirate NO GROWTH
Gram Stain - Final
06/22/24 15:13 MRSA Screen - Final
Nose No Methicillin Resistant Staphylococcus aureus isolated.
06/22/24 00:35 Influenza Types A & B (MIGUEL) - Final
Nasal Swab Influenza A Positive, NAAT
06/29/23 CXR: Progressed findings suggesting severe pulmonary edema. Pneumonia cannot be excluded.
06/28/23 CXR: Patchy bibasilar opacities, which may represent pneumonia, aspiration, or subsegmental atelectasis. No significant change compared to her study. Mild interstitial prominence, suggestive of mild pulmonary edema.
06/27/23 CXR: Mild bilateral patchy airspace disease concerning for developing pneumonia. New.
06/26/23 CXR: Persistent bilateral interstitial and alveolar pulmonary opacities with a similar distribution compared to the chest radiograph from 06/25/2024. Suspected small left pleural effusion.
06/22/24 CXR: Left hemidiaphragm elevation redemonstrated. Small left pleural effusion with associated probable atelectasis, slightly progressed.
--- NOTE | 2024-06-30 09:39 | PTCARENOTE ---
report received, assessments per work list. patient not following commands, rigid, biting ETT with stimulation. increased nonverbal pain cues. see PRN. sedation per work list. patient nsr, sinus tach with pac's, intermittent afib, rate controlled.
suctioned for large amount quiñones secretions, inspiratory and expiratory wheezing, coarse rhonchi. ogt placement verified by air auscultation, patent for medication. rectal trumpet in place, small amount liquid stool. hypoactive bowel sounds. right
radial arterial line with cuff correlation. lomeli draining bety yellow urine. orders received, cxr taken, lasix administered. per hospitalist, droplet precautions can be discontinued. spouse at bedside
--- NOTE | 2024-06-30 10:03 | W.PN.CARDCBS ---
Today's Communication / Plan
-
Continue rate control of A-fib with amiodarone
Will DC IV amiodarone and change to oral amiodarone and load with 400 mg p.o. 3 times daily
Impression / Plan
-
.
Clammer: Dr. Hahn ([facility])
Impression:
Presented w/ respiratory distress
VDRF
Reconsultation for nonsustained V. tach versus A-fib with aberrancy 06/29/2024
Influenza A Pneumonia
Aspiration pneumonia
Sepsis
Non-IA ischemic injury, troponin peak 1.5
Paroxysmal atrial fibrillation on chronic amiodarone therapy
Chronic OAC with Eliquis
Acute on chronic RF
Hypertension
Hypothyroidism
h/o breast cancer
h/o colon cancer
Vascular dementia
Echo Jun 23 2024: EF 55-60% with RODRIGUEZ, PASP 35-40 mmHg
Plan:
Heart rate better controlled with IV amiodarone
Will change to oral amiodarone to avoid a central line and possible infection
Will start with amiodarone 4 mg p.o. 3 times daily through tube and follow ECG
Cont tx for Flu PNA and likely aspiration pneumonia
Cont vent management.
Discussed with nursing and with at bedside
HPI: Liza is an 88-year-old female with past medical history of paroxysmal atrial fibrillation maintained on Eliquis and amiodarone, hypertension, hypothyroidism, breast cancer, colon cancer, and vascular dementia. She presented to ER for
evaluation of respiratory distress. History is obtained from as patient is intubated and sedated. He reports they began feeling unwell earlier this week with flulike symptoms. She was given antibiotics and cough medicine by PCP. She
continued to feel poorly. He had EMS come out to evaluate her around 5 PM and reportedly she was stable with normal pulse ox and did not require hospitalization. They went to sleep later that night and when he woke up around 11 PM, he noted that
her breathing sounded labored, so he then called EMS and pulse ox was noted to be in the 70s and she was placed on nonrebreather. On arrival to the ER, she was markedly hypoxemic and in severe distress and required intubation. She remains
intubated and sedated at this time and has been admitted to the ICU with influenza A pneumonia and sepsis. Elevated troponin noted, trending up to 1.52 resulting in cardiology consultation. Has been reports no history of coronary artery disease or
prior stenting. He does note that she had a an echo within the past few months and has never been told that she has a weakened heart muscle
Progress Note - Clammer
Subjective
Date of Service: June 30, 2024
unresponsive
Objective
Labs:
06/30/24 04:55
06/30/24 04:55
Labs
Hgb 7.7 g/dL (12.0-16.0) L 06/30/24 04:55
Hct 23.9 % (37.0-47.0) L 06/30/24 04:55
Plt Count 282 10^3/uL (130-400) D 06/30/24 04:55
PT 16.7 Sec (11.4-14.6) H 06/22/24 00:57
INR 1.30 06/22/24 00:57
APTT Cancelled 06/25/24 11:30
APTT Cancelled 06/25/24 11:30
Sodium 144 mmol/L (135-145) 06/30/24 04:55
Potassium 3.6 mmol/L (3.5-5.1) 06/30/24 04:55
BUN 39 mg/dl (7-17) H 06/30/24 04:55
Creatinine 2.3 mg/dL (0.6-1.0) H 06/30/24 04:55
Glucose 128 mg/dl (70-99) H 06/30/24 04:55
Troponins
06/28/24 06/28/24
08:59 12:20
Troponin I 1.770 H* Cancelled
Vital Signs and I&O:
Vital Signs
Temp Pulse Resp BP Pulse Ox
98.3 F 101 16 116/50 95
06/30/24 07:22 06/30/24 09:30 06/30/24 09:30 06/30/24 09:26 06/30/24 09:30
Vital Signs
Temp Pulse Resp BP Pulse Ox
98.3 F 101 16 116/50 95
06/30/24 07:22 06/30/24 09:30 06/30/24 09:30 06/30/24 09:26 06/30/24 09:30
Intake & Output
06/28/24 06/29/24 06/30/24 07/01/24
06:59 06:59 06:59 06:59
Intake Total 852.8 / 874.1 1057.5 / 1085.9 1842.9 / 1892.6 352.1 / 352.1
Output Total 3650 / 3700 1355 / 1355 835 / 835 45 / 45
Balance -2797.2 / -2825.9 -297.5 / -269.1 1007.9 / 1057.6 307.1 / 307.1
Physical Exam
Physical Exam
General: Awake but unresponsive
Neck: Supple, no JVD, HJR, carotids +2 B/L, no bruits bilaterally.
Heart: Non displaced PMI, irregular, no murmurs, No S3, S4, no rubs.
Lungs: Scattered rhonchi
Extremities: No clubbing, cyanosis or edema bilaterally.
Neuro: Awake but unresponsive
--- NOTE | 2024-06-30 10:11 | W.PN.HOSP.TC ---
Today's Communication/Plan
-
continue IV Abx
possible IV Lasix
wean pressors/vent/sedation
pending transfer to [place]
Assessment / Plan
Assessment / Plan
Assessment:
Acute hypoxic respiratory failure
VDRF (intubated 06/22)
- in setting of Influenza A
- wean vent/sedation per ICU team; follow ABGs and serial X-rays
- repeat CXR 06/25 with increased pulmonary edema pattern; IV Lasix per ICU as indicated
Septic shock from Influenza A, possible superimposed bacterial PNA
- continue pressors; wean as able
- completed 7 day Zosyn course and completed 5 day Tamiflu course
- recurrent fevers; ID consulted and placed on IV vanco, Cefepime, Flagyl, day 2
- follow fever/WBC trends
Hx of Parox Afib with RVR
- continue Amiodarone IV
- continue Eliquis
- Echo: EF: 55-60%, moderate TR, pulmonary HTN
nonischemic myocardial injury
- trop peaked at 1.5 initially, now back to 1.77
Acute renal insufficiency
- unknown baseline
- monitor Cr, most recently 2.2
- obtain records from PCP if able
Elevated LFTs likely shock liver
- trend CMP
Hypothyroidism
- continue replacement. TSH normal
Vascular dementia
Essential HTN
- hold losartan
Chronic anemia
- monitor Hb
Nutrition
- TFs continue
Hypokalemia - replete prn
DVT ppx: Eliquis
Code: DNR/DNI
Prognosis poor
Total Critical Care Time 40 minutes. I was immediately available to the patient and staff. I personally examined, reviewed labs, diagnostic images/reports, interpretations, treatment plans, discussed patient care with other providers and family or
caregivers (if patient is unable to make decisions), entered orders as appropriate and documented the medical record.
Dispo: Pending transfer to [place] - Dr. García, critical care. Transfer is from family request - not a medical necessity.
Anticipated Discharge: > 48 hours
Subjective/Interval History
-
Date of Service: June 30, 2024
remains vented/sedated
TFs remain on hold
Fever curve improving in last 18 hours
pressor requirements decreasing
Objective Data
-
Labs:
Laboratory Results
06/30/24
04:55
WBC 25.4 H
Hgb 7.7 L
Hct 23.9 L
Plt Count 282 D
HCO3 26.5
Sodium 144
Potassium 3.6
Chloride 105
Carbon Dioxide 25
BUN 39 H
Creatinine 2.3 H
Glucose 128 H
Calcium 7.5 L
Vital Signs:
Vital Signs
Temp Pulse Resp BP Pulse Ox
98.3 F 101 16 116/50 95
06/30/24 07:22 06/30/24 09:30 06/30/24 09:30 06/30/24 09:26 06/30/24 09:30
I&O
06/29/24 06/30/24 07/01/24
06:59 06:59 06:59
Intake Total 1057.5 / 1085.9 1842.9 / 1892.6 352.1 / 352.1
Output Total 1355 / 1355 835 / 835 45 / 45
Balance -297.5 / -269.1 1007.9 / 1057.6 307.1 / 307.1
Physical Exam
-
General: Intubated and Appears Chronically Ill
HEENT: Normocephalic and Atraumatic
Respiratory: Rhonchi and Crackles
Cardiac: Regular Rhythm and S1/S2
GI: Soft
Neuro: Sedated
Data Reviewed
-
Critical Care Time (in minutes): 40
Labs: Labs Reviewed by me
--- NOTE | 2024-06-30 10:58 | W.PN.INTV ---
Today's Communication / Plan
Recommendations
Spontaneous breathing trial today to extubation.
Discussed with and daughter who was at the bedside. No reintubation will be offered.
Lasix today IV now
Continue antibiotics
Hold tube feedings for now, we will attempt to restart tomorrow
Follow renal function and electrolytes
Minimize sedation as able
Assessment
-
88-year-old female with history of atrial fibrillation, vascular dementia, breast cancer, colon cancer, presents with increased shortness of breath since 06/21. Patient refused transport upon first call to 911 but second call, was noted to be
saturating in the 70s, intubated in the ED. Influenza A positive, troponin positive. Given aspirin in the ED, Tamiflu via feeding tube. Patient was also given vancomycin and Zosyn, admitted to ICU for further management
Acute hypoxic respiratory failure-due to influenza A pneumonia/cannot rule out aspiration event/heart failure component
Saturation in the 70s
Intubated in ED 06/21
proBNP 06/22/2024 is 19,500
Hypotension, likely septic shock
Requiring pressors
Elevated troponin
Acute renal insufficiency on CKD suspected
Baseline not known
Elevated lactate
Acute transaminitis
Abnormal EKG
First-degree AV block
Atrial fibrillation/atrial flutter
Conditions present prior to admission
History of recurrent pneumonia
Suspected aspiration syndrome
Follows pulmonary at [place] ([facility])
History of atrial fibrillation
Amiodarone therapy
On Eliquis
Hypothyroidism
History of vascular dementia
Plan/recommendations
Remains critically ill, on mechanical ventilation. Intermittently on low-dose dose vasopressors.
-
Mechanical ventilation settings reviewed: Mechanical ventilation day #9
Continue with volume-cycled ventilation
AC 16/350/5/70%
Aspiration event 06/29/2024 developer evangelist-worsening mechanics, fevers, worsening chest x-ray.
ETT with thin secretions. Not excessive.
Rhonchi bilaterally on exam. Not bronchospastic.
-
ABG 06/30/2024: 7.35/48/62
AB.48/37/217 (06/29/2024)
-
Chest x-ray 06/30/2024: Reviewed endotracheal tube in place. Left hemidiaphragm elevation versus hiatal hernia. Prominence of vascular markings. Stable mild patchy parenchymal opacities in bilateral lungs. No pleural effusion. Cardiomegaly.
Chest x-ray 06/29/2024: Worsening bilateral infiltrates, left hemidiaphragm elevation. Pulmonary edema versus pneumonia
Chest x-ray 06/28/2024, continues to demonstrate patchy bilateral opacities no significant change compared to prior. Mild interstitial prominence suggestive pulmonary edema. Small left pleural effusion.
Chest x-ray 06/27/2024: showed mild bilateral patchy airspace disease concerning for developing pneumonia. Slight prominence of the interstitial markings diffusely. Mild pulmonary edema. Left pleural effusion mild. Cardiomegaly. Moderate
elevation of the left hemidiaphragm.
-
Precedex discontinued 06/29/2024 due to increased work of breathing, hypoxemia and fever. Likely aspiration pneumonitis/pneumonia.
-
Will try to minimize propofol and fentanyl.
Patient biting the tube, agitated with sedation breaks
Okay to restart citalopram, Zyprexa daily via tube.
May need to get occasional Haldol if agitation continues.
-
Will keep at lowest dose possible to maintain comfort. RASS score 0 to -1 if possible.
Continue with daily sedation breaks.
With sedation breaks: Not following commands but awake. Possibly baseline due to underlying dementia-becomes agitated and tachypneic with every sedation break.
-
X-ray improved, fever resolved, hemodynamics improved. Awake, has a cough effort, biting the tube. Saturations holding on pressure support ventilation 5/5.
Family at the bedside. Discussed with and daughter who is the power of real estate officer. If stable in 30 to 40 minutes then we will extubate. No reintubation will be offered.
Will extubate to high flow oxygen
-
Failed spontaneous breathing trial 06/25/2025-increased work of breathing, ABG with mild hypercapnia.
Attempted spontaneous breathing trial at 07/20/2023: Increased work of breathing after few minutes. Trial aborted.
Spontaneous breathing trial 06/28/2024: 2 hours on Precedex and low-dose fentanyl as well as the patient had increased work of breathing. ABG 7.45/38/97. Unfortunately, not adequate for extubation as the patient had a respiratory rate of mid 20s to
30s. Likely hypercapnic.
-
Continue outpatient psychotropic medications. Unclear if there is absorption due to vomiting.
Suspect ongoing muscle weakness also impairing ability to wean at this point.
Supportive care will continue
-
Continue DuoNebs 3 times a day for secretion clearance.
No indication for steroids.
-
Currently on low-dose Sylvain-Synephrine since 06/29/2024, will attempt to wean off.
Renal function stable
Responded well to diuresis 06/25/2025 and 06/26/2024 and 06/28/2024.
proBNP greater than > 27,000
Troponin mildly [id number] per Cardiology.
Will continue with intermittent diuresis as tolerated. 20 mg of Lasix given 06/30/2024.
-
Patient also appears to have aspiration syndrome per discussion with at the bedside on admission, pneumonia every year-will need to be addressed later on.
-
Pneumonia:
Persistent low-grade fevers
Leukocytosis resolved
Repeat cultures negative.
C. difficile negative
Repeat chest x-ray 06/29/2024
Abdominal x-ray today due to vomiting
All cultures negative so far.
Cannot rule out aspiration pneumonitis as a reason for the fever
Completed a course of Zosyn 06/28/2024
Completed a course of Tamiflu 06/28/2024
Antibiotics restarted 06/29/2024: Aspiration event, fevers, leukocytosis.
Discontinue Precedex may be related to low-grade fevers as well
-
Prior cultures:
MRSA screening negative.
Remains on Tamiflu-complete 5 days.
Tracheal aspirate 06/27/2024: Tiffanie, likely contaminant.
Repeat blood culture 06/27/2024-no growth
Urinalysis: Unremarkable 06/27/2024
On anticoagulation-less likely thromboembolic event
-
NSVT/atrial fibrillation. Slightly tachycardic-likely due to agitation.
Continue amiodarone.
Continue Eliquis.
Creatinine elevated, (suspect chronic kidney disease component elevated proBNP noted although does not appear to be in heart failure on exam
Echocardiogram 06/23/2024 shows normal biventricular function, underfilled LV, PA pressure 40. Dilated right atrium. Dilated left atrium. Moderate TR. No pericardial effusion. IVC is normal size.
Elevated troponin noted-trending [id number] per cardiology.
Cardiology has signed off
-
Status post diuresis 06/25/2024, 06/27/2024, 06/28/2024 continue to reassess daily.
Repeat proBNP greater than 27,000
Will readdress later for further diuretics. Her weight has been stable.
Most recent EKG 06/27/2024: Atrial fibrillation with rapid ventricular response. Anterior infarct age undetermined.
-
Septic shock: Resolved, off vasopressors for 24 hours or longer.
Levophed has been discontinued since 06/27/2023. Intermittently requiring low-dose likely due to sedation.
Metabolic acidosis [id number] gap-resolved 06/25/2024
Discontinued bicarbonate drip today 06/25/2024
Mildly increased lactate acid on admission-no longer trending.
-
Follow creatinine, I's and O's
Beckman catheter
-
Transaminitis noted-stable
Monitor LFTs
Likely secondary to shock, sepsis
Abdominal ultrasound unremarkable
Anemia: Chronic. Stable- Continue to follow will transfuse for hemoglobin less than 7
Normal platelet count
OG tube in place
Hold tube feedings: Patient has diarrhea also had vomiting and high residuals 06/24/2024.
Vomiting 06/29/2024-tube feedings on hold. Will attempt to restart tube feedings tomorrow 07/01/2024.
Abdominal exam is benign-decreased bowel sounds suspect ileus
Abdominal film: Nonspecific bowel pattern 06/29/2024
C. difficile negative
Head of the bed elevation, aspiration precaution
PPI for GI prophylaxis
DVT prophylaxis-Eliquis
Reviewed with critical care nursing, cardiology, primary service on a daily basis.
Dr. Nick updated at the bedside. 06/26/2024, 06/27/2024, 06/28/2024, 06/29/2024. 06/30/2024
Power of real estate officer daughter who is a radiation oncologist from [place] is here and she was updated by Dr. Nick 06/29/2024.
Dr. Nick also updated patient's primary care doctor again on 06/29/2024 via phone.
DNR status
Dr. Nick discussed extensively with 06/28/2024. Also discussed with patient's outpatient primary care doctor Dr. Hu.
Patient's , upset about the lack of progress. Asking to transfer to the different hospital. Also threatening with litigation. He he was explained that unfortunately his is very deconditioned, with advanced dementia, Frequent
pneumonias, primary care doctor states that the patient has been declining over the last year significantly.
I told him that likely this is going to be a prolonged mechanical ventilation due to slow progress with improvement and advanced age and comorbidities. Will continue with supportive care
-
Prognosis poor
-
Case discussed with primary care team as well.
-
Critical care statement: A total of 41 minutes of critical care time was provided for this patient today. This includes management of unstable vital signs, evaluation of the patient at bedside, reviewing the patient's pertinent medical records
including ventilator settings, arterial blood gases, radiographs, microbiology, laboratory evaluations and discussion with primary team, critical care nursing, and respiratory therapy.
Subjective Dataa
Subjective Data
Date of Service:
Date of Service: June 30, 2024
Chief Complaint: Vp Research Follow Up (Acute hypoxemic respiratory failure requiring intubation)
Objective Data
Data Reviewed
Vital Signs / I&O / Oxygen:
Vital Signs
Temp Pulse Resp BP Pulse Ox
98.3 F 100 17 116/50 96
06/30/24 07:22 06/30/24 10:45 06/30/24 10:45 06/30/24 09:26 06/30/24 10:45
Intake and Output
06/29/24 06/30/24 07/01/24
06:59 06:59 06:59
Intake Total 1057.5 / 1085.9 1842.9 / 1892.6 407.8 / 407.8
Output Total 1355 / 1355 835 / 835 60 / 60
Balance -297.5 / -269.1 1007.9 / 1057.6 347.8 / 347.8
SaO2 [CPAP] 95
SaO2 [ASV] 94
SaO2 [A/C] 96
SaO2 96
Physical Exam
General: Other ( restless) and Other (Left upper extremity midline)
HEENT: Normocephalic and Anicteric
Cardiovascular: S1-S2, Irregular Rhythm, Murmur (n) and Rub (n)
Respiratory: Wheeze (n), Crackles (n), Rhonchi (Mild scattered bilaterally) and ET Tube (No significant secretion )
GI: Soft, Non Distended, Non Tender and Other (Decreased bowel sounds)
Neurology: Lethargic (Sedated but does spontaneously move extremities, increased work of breathing with sedation breaks, not following commands.)
Skin: Cyanosis (n), Jaundice (n), Rash (n) and Bruising (Few)
Labs/Micro/Reports
Lab Data
06/30/24 04:55
06/30/24 04:55
Laboratory Results
06/30/24
04:55
pH 7.35
pCO2 48 H
pO2 62 L
HCO3 26.5
O2 Delivery Level
Microbiology
06/27/24 10:19 Blood/Venous Blood Culture - Preliminary
No Growth in 72 hours- Final report to follow
06/27/24 11:06 Blood/Venous Blood Culture - Preliminary
No Growth in 48 hours- Final report to follow
06/27/24 14:58 Tracheal Aspirate Respiratory Culture - Final
Tiffanie albicans
06/27/24 14:58 Tracheal Aspirate Gram Stain - Final
06/28/24 12:55 Feces/Stool C. difficile GDH Antigen & Toxins - Final
Negative for toxigenic C.difficile
06/22/24 07:33 Blood/Venous Blood Culture - Final
No Growth - Final Report
06/22/24 07:33 Blood/Venous Blood Culture - Final
No Growth - Final Report
[2024-06-30] MEDS: STERILE WATER FOR INJECTION 10 ML IV (11:54)
[2024-06-30] MEDS: MAXIPIME 2000 MG IV (11:54)
[2024-06-30 12:14] LABS: B.E. -3.9 mmol/L; HCO3 22.6 mmol/L (21-28); O2 Saturation % 97.5 % (94-98); PCO2 47 mmHg (32-35); PO2 88 mmHg (83-108); pH 7.29 (7.35-7.45)
--- NOTE | 2024-06-30 12:16 | PTCARENOTE ---
Addendum entered by Brigida Browne RN 06/30/24 12:40:
placed back on AC per MD. patient fentanyl and propofol resumed as patient with increasing agitation, biting down on ETT requiring insertion of bite block. fentanyl bolus given per prn order
Original Note:
patient propofol, fentanyl off for sedation vacation. placed on CPAP wean. mildy restless. ABG drawn, results pending. minimal urine output post lasix. conduit bender at bedside, updated.
--- NOTE | 2024-06-30 14:21 | PTCARENOTE ---
patient spouse stated to this wwriter that he no longer wanted to transfer the patient to [place]. fuse coiler and hospitalist updated by tiger text. fuse coiler to round again later to discuss with spouse, spouse updated. poor urine output post lasix,
fuse coiler and hospitalist made aware with tiger text
[2024-06-30] MEDS: TYLENOL ORAL SOLUTION 650 MG TUBE (15:21)
--- NOTE | 2024-06-30 16:49 | PTCARENOTE ---
patient reassessed, tylenol for elevated temp. diaphoretic, complete care given. suctions for moderate amount secretions. decreased urine output. shirt line operator informed
--- NOTE | 2024-06-30 18:11 | PTCARENOTE ---
vidal weaned to off, spouse remains at bedside. patient does not follow any commands or make eye contact.remains very rigid. restraints maintained for patient safety
[2024-06-30 20:00] VITALS: BP 111/52
--- NOTE | 2024-06-30 20:00 | PTCARENOTE ---
Rec'd pt with wrists restrained, diprivan gtt at 15mic, fent gtt at 50mic, at bedside- all questions answered, extremities rigid, afib, r rad phuong w/ good wave form, flushes well, to keep MAP > 65, weak distal pulses, + anasarca, skin
warm/dry, #7 oral ett- 22 cm- moved to center, ac 16, tv 350, 5 peep, 50%, lungs coarse, rhonchi, wheezing , sat 96,sm amt thick quiñones secretions, hypo bowel sounds, rectal trumpet to str drainage bag draining scant brown liquid, oral salem clamped
for emds, thermister lomeli w/ scant urine output
[2024-06-30 20:19] VITALS: BP 122/76
--- NOTE | 2024-06-30 22:00 | PTCARENOTE ---
Lotus Hicks NP aware of urine output- lasix 20mg iv given at 2210
[2024-07-01] VITALS (22 sets, daily range): BP systolic 76–111; BP diastolic 46–76; BMI 23.0
--- NOTE | 2024-07-01 | PTCARENOTE ---
sys reviewed, Lotus alcala NP aware of urine out put & HR 120, no orders at this time.fio2 decr to 40% by resp therapist, CHG bath done, linens changed
--- NOTE | 2024-07-01 01:15 | PTCARENOTE ---
sat dropped to 88%, fio2 incr to 50% at 0115
[2024-07-01 03:36] LABS: B.E. -3.2 mmol/L; O2 Saturation % 97.5 % (94-98); PCO2 39 mmHg (32-35); PO2 86 mmHg (83-108); pH 7.36 (7.35-7.45)
[2024-07-01 03:55] LABS: Hematocrit 21.7 % (37.0-47.0); Mean Corp Hgb Conc. 32.3 g/dL (33.0-37.0); Mean Corpuscular Hgb 30.2 pg (27.0-31.0); Mean Corpuscular Volume 93.5 fL (81.0-99.0); Mean Platelet Volume 10.5 fL (7.4-10.4); Platelet Count 298 10^3/uL (130-400); Red Blood Cell Count 2.32 10^6/uL (4.20-5.40); Red Cell Dist. Width 14.6 % (11.5-14.5); White Blood Cell Count 22.4 10^3/uL (4.8-10.8)
--- NOTE | 2024-07-01 04:00 | PTCARENOTE ---
sys reviewed, changes noted, ett repos left lip at 22cm
[2024-07-01 04:18] LABS: Blood Urea Nitrogen 42 mg/dl (7-17); Calcium 7.8 mg/dl (8.4-10.2); Carbon Dioxide 20 mmol/L (22-30); Chloride 105 mmol/L (98-107); Estimated Creatinine Clearance 11 ml/min; Glucose 112 mg/dl (70-99); Potassium 3.4 mmol/L (3.5-5.1); Sodium 142 mmol/L (135-145); Triglycerides 160 mg/dl (10-149); eGFR 15.75
[2024-07-01 04:22] LABS: Vancomycin Random 13.7 ug/ml
[2024-07-01] MEDS: FLAGYL 500 MG 100 IV ×3 (05:05→21:07)
[2024-07-01] MEDS: SYNTHROID 112 MCG TUBE (05:05)
[2024-07-01] MEDS: SUBLIMAZE 100 IV ×2 (05:24→23:59)
[2024-07-01] MEDS: KCL 270 MEQ IV (06:19)
--- NOTE | 2024-07-01 06:20 | PTCARENOTE ---
40 kcl/ 250 hung at 67.5 ml/hr per order
--- NOTE | 2024-07-01 07:12 | W.PN.INTV ---
Addendum entered and electronically signed by Tamanna Velazco DO 07/01/24 16:30:
Spoke to daughter who would like to w/d on patient by at least Monday, she cannot do it tomorrow due to a dental procedure she is having done.
She asked us to offer patient's a chance to choose when he would like this done.
I spoke to him at bedside to which he became extremely belligerent threatening to yamil if anyone touches her. He does not feel she is suffering despite being prolonged on the vent. He asked patient 'are you suffering?' and she did not respond but
he proceeded to accept her lack of response/unresponsiveness and an answer of 'no.'
He does not wish to move forward at all.
I communicated this to the daughter who states she will be here Monday and will move forward with the plan at that time.
Discussed with care team.
Original Note:
Today's Communication / Plan
Recommendations
Remains critically ill, now oliguric with worsening renal function/volume overload
Off pressors, add PO midodrine PRN
Renal consult
Vent trials ongoing, but has not made significant progress
Will update family re GOC, at bedside but daughter is POA
Assessment
-
88-year-old female with history of atrial fibrillation, vascular dementia, breast cancer, colon cancer, presents with increased shortness of breath since 06/21. Patient refused transport upon first call to 911 but second call, was noted to be
saturating in the 70s, intubated in the ED. Influenza A positive, troponin positive. Given aspirin in the ED, Tamiflu via feeding tube. Patient was also given vancomycin and Zosyn, admitted to ICU for further management
Acute hypoxic respiratory failure-due to influenza A pneumonia/cannot rule out aspiration event/heart failure component
Saturation in the 70s
Intubated in ED 06/21
proBNP 06/22/2024 is 19,500
Hypotension, likely septic shock
Requiring pressors
Elevated troponin
Acute renal insufficiency on CKD suspected
Baseline not known
Elevated lactate
Acute transaminitis
Abnormal EKG
First-degree AV block
Atrial fibrillation/atrial flutter
Conditions present prior to admission
History of recurrent pneumonia
Suspected aspiration syndrome
Follows pulmonary at [place] ([facility])
History of atrial fibrillation
Amiodarone therapy
On Eliquis
Hypothyroidism
History of vascular dementia
Plan
Remains critically ill, on mechanical ventilation. Intermittently on low-dose dose vasopressors.
Precedex discontinued 06/29/2024 due to increased work of breathing, hypoxemia and fever. Likely aspiration pneumonitis/pneumonia.
Will try to minimize propofol and fentanyl.
Patient biting the tube, agitated with sedation breaks
Okay to restart citalopram, Zyprexa daily via tube.
May need to get occasional Haldol if agitation continues.
Continue outpatient psychotropic medications. Unclear if there is absorption due to vomiting.
Suspect ongoing muscle weakness also impairing ability to wean at this point.
Will keep at lowest dose possible to maintain comfort. RASS score 0 to -1 if possible.
Continue with daily sedation breaks.
With sedation breaks: Not following commands but awake. Possibly baseline due to underlying dementia-becomes agitated and tachypneic with every sedation break.
Mechanical ventilation settings reviewed: Mechanical ventilation day #9
Continue with volume-cycled ventilation-AC 16/350/5/70%
Aspiration event 06/29/2024 admitting clerk-worsening mechanics, fevers, worsening chest x-ray.
ETT with thin secretions. Not excessive.
Rhonchi bilaterally on exam. Not bronchospastic.
Failed spontaneous breathing trial 06/25/2025-increased work of breathing, ABG with mild hypercapnia.
Attempted spontaneous breathing trial at 07/20/2023: Increased work of breathing after few minutes. Trial aborted.
Spontaneous breathing trial 06/28/2024: 2 hours on Precedex and low-dose fentanyl as well as the patient had increased work of breathing.
ABG 7.45//. Unfortunately, not adequate for extubation as the patient had a respiratory rate of mid 20s to 30s. Likely hypercapnic.
Continue DuoNebs 3 times a day for secretion clearance.
No indication for steroids.
Currently off low-dose Sylvain-Synephrine, add midodrine PRN
Renal function progressively worsening (initial 1.6-1.7 on adm -> 2.3 -> 2.8)
Given attempts at diuresis: 06/25/2025 and 06/26/2024 and 06/28/2024.
20 mg of Lasix given 06/30/2024
proBNP greater than > 27,000, urine output progressively poor 2850 -> 895 -> 785 -> 505 -> 30 (over past 4 days)
Will consult renal
Patient also appears to have aspiration syndrome per discussion with at the bedside on admission, pneumonia every year-will need to be addressed later on.
Pneumonia- Persistent low-grade fevers
Leukocytosis resolved
Cultures reviewed:
Repeat cultures negative. sputum 06/30 pending
C. difficile negative
Sputum + kip 06/27/24; neg 06/22/24; MRSA neg
Blood negative 06/27, 06/22
Flu A + 06/22
Cannot rule out aspiration pneumonitis as a reason for the fever
Completed Zosyn 06/28/2024; completed Tamiflu 06/28/2024
Antibiotics restarted 06/29/2024: Aspiration event, fevers, leukocytosis - CFP/Fgl
Discontinue Precedex may be related to low-grade fevers as well
Troponin mildly [id number] per Cardiology.
ECHO 06/23 stable
Rate control, amio/Eliquis continued
NSVT/atrial fibrillation. Slightly tachycardic-likely due to agitation.
Transaminitis noted-stable/monitor LFTs
Likely secondary to shock, sepsis- abdominal ultrasound unremarkable
OG tube in place/remains NPO
Hold tube feedings: Patient has diarrhea also had vomiting and high residuals 06/24/2024.
Vomiting 06/29/2024-tube feedings on hold. Will attempt to restart tube feedings tomorrow 07/01/2024.
Abdominal exam is benign-decreased bowel sounds suspect ileus
Abdominal film: Nonspecific bowel pattern 06/29/2024
Head of the bed elevation, aspiration precaution
Anemia: Chronic. Stable- Continue to follow will transfuse for hemoglobin less than 7
Normal platelet count
PPI for GI prophylaxis
DVT prophylaxis-Eliquis
Reviewed with critical care nursing, cardiology, primary service on a daily basis.
Case discussed with primary care team as well.
DNR status
Family Discussions
Dr. Nick updated at the bedside. 06/26/2024, 06/27/2024, 06/28/2024, 06/29/2024. 06/30/2024
Power of securities attorney daughter who is a radiation oncologist from [place] is here and she was updated by Dr. Nick 06/29/2024.
[address] Nick also updated patient's primary care doctor again on 06/29/[address] Nick discussed extensively with 06/28/2024. Also discussed with patient's outpatient primary care doctor Dr. Hu.
Patient's , upset about the lack of progress. Asking to transfer to the different hospital. Also threatening with litigation. He he was explained that unfortunately his is very deconditioned, with advanced dementia, Frequent
pneumonias, primary care doctor states that the patient has been declining over the last year significantly. I told him that likely this is going to be a prolonged mechanical ventilation due to slow progress with improvement and advanced age and
comorbidities. Will continue with supportive care. Prognosis poor.
Diagnostic Data
Chest X-Ray:
Chest x-ray 06/30/2024: Reviewed endotracheal tube in place. Left hemidiaphragm elevation versus hiatal hernia. Prominence of vascular markings. Stable mild patchy parenchymal opacities in bilateral lungs. No pleural effusion. Cardiomegaly.
Chest x-ray 06/29/2024: Worsening bilateral infiltrates, left hemidiaphragm elevation. Pulmonary edema versus pneumonia
Chest x-ray 06/28/2024, continues to demonstrate patchy bilateral opacities no significant change compared to prior. Mild interstitial prominence suggestive pulmonary edema. Small left pleural effusion.
Chest x-ray 06/27/2024: showed mild bilateral patchy airspace disease concerning for developing pneumonia. Slight prominence of the interstitial markings diffusely. Mild pulmonary edema. Left pleural effusion mild. Cardiomegaly. Moderate
elevation of the left hemidiaphragm.
ABG 06/30/2024: 7.35/48/62
AB.48/37/217 (06/29/2024)
CT Scan:
Echo: 06/23/24- Small left ventricle with overall normal systolic function; left ventricular ejection fraction is 55-60% by visual assessment. Normal left ventricular wall thickness. Normal right ventricular size and function. Both ventricles
appear underfilled Dilated left atrium. Dilated right atrium. Calcified, trileaflet aortic valve with adequate excursion and a mean gradient of 8 mmHg. Tricuspid valve opens normally with moderate tricuspid regurgitation. Estimated pulmonary artery
pressure of 35-40 mmHg, assuming a right atrial pressure of 3 mmHg. Structurally normal pulmonic valve without significant stenosis or regurgitation. Normal pericardium without effusion. The IVC is of normal size.
PFT's:
Reports and relevant images were personally reviewed.
Critical care statement: A total of 51 minutes of critical care time was provided for this patient today. This includes management of unstable vital signs, evaluation of the patient at bedside, reviewing the patient's pertinent medical records
including ventilator settings, arterial blood gases, radiographs, microbiology, laboratory evaluations and discussion with primary team, critical care nursing, and respiratory therapy.
Subjective Dataa
Subjective Data
Date of Service:
Date of Service: July 01, 2024
Chief Complaint: Battery Mechanic Follow Up (Acute hypoxemic respiratory failure requiring intubation)
Subjective:
remains critically ill on vent, at bedside
oliguria and worsening renal function noted
has failed SBT in past few days
Objective Data
Data Reviewed
Vital Signs / I&O / Oxygen:
Vital Signs
Temp Pulse Resp BP Pulse Ox
99.3 F 116 20 109/49 95
07/01/24 03:10 07/01/24 06:00 07/01/24 06:00 06/30/24 22:07 07/01/24 06:00
Intake and Output
06/30/24 07/01/24 07/02/24
06:59 06:59 06:59
Intake Total 1842.9 / 1892.6 1415.6 / 1415.6
Output Total 835 / 835 615 / 615
Balance 1007.9 / 1057.6 800.6 / 800.6
SaO2 [CPAP] 94
SaO2 [ASV] 94
SaO2 [A/C] 96
SaO2 95
Physical Exam
General: Other ( restless) and Other (Left upper extremity midline)
HEENT: Normocephalic and Anicteric
Cardiovascular: S1-S2, Irregular Rhythm, Murmur (n) and Rub (n)
Respiratory: Wheeze (n), Crackles (n), Rhonchi (Mild scattered bilaterally) and ET Tube (No significant secretion )
GI: Soft, Non Distended, Non Tender and Other (Decreased bowel sounds)
Neurology: Lethargic (Sedated but does spontaneously move extremities, increased work of breathing with sedation breaks, not following commands.)
Skin: Cyanosis (n), Jaundice (n), Rash (n) and Bruising (Few)
Labs/Micro/Reports
Lab Data
07/01/24 03:29
07/01/24 03:29
Laboratory Results
06/30/24 07/01/24
12:03 03:29
pH 7.29 L 7.36
pCO2 47 H 39 H
pO2 88 86
HCO3 22.6 22.0
O2 Delivery Level Not Reportable
Microbiology
06/30/24 09:33 Sputum Gram Stain - Preliminary
06/27/24 11:06 Blood/Venous Blood Culture - Preliminary
No Growth in 72 hours- Final report to follow
06/27/24 10:19 Blood/Venous Blood Culture - Preliminary
No Growth in 72 hours- Final report to follow
06/27/24 14:58 Tracheal Aspirate Respiratory Culture - Final
Kip albicans
06/27/24 14:58 Tracheal Aspirate Gram Stain - Final
06/28/24 12:55 Feces/Stool C. difficile GDH Antigen & Toxins - Final
Negative for toxigenic C.difficile
[2024-07-01] MEDS: SUBLIMAZE 50 MCG IV ×2 (07:14→16:01)
[2024-07-01] MEDS: CELEXA 10 MG TUBE (07:30)
[2024-07-01] MEDS: LOW STRENGTH ASPIRIN 81 MG TUBE (07:30)
[2024-07-01] MEDS: MIRALAX 17 GRAMS TUBE (07:30)
[2024-07-01] MEDS: PROTONIX IV 40 MG IV (07:30)
[2024-07-01] MEDS: ELIQUIS PO ×2 (07:30→08:32)
[2024-07-01] MEDS: ZYPREXA 5 MG TUBE ×2 (07:30→19:44)
[2024-07-01] MEDS: PACERONE 400 MG PO ×2 (07:30→16:01)
[2024-07-01] MEDS: NSS (PRESERVATIVE FREE) 10 ML IV (07:30)
[2024-07-01] MEDS: DIPRIVAN 100 IV (07:54)
--- NOTE | 2024-07-01 08:53 | PTCARENOTE ---
pt received from previous rn- ett to vent- see settings as charted. -pt biting tube, restless, continues to not follow commands, rigid- pt tachypneic and sats 88%, fentanyl bolus given as per order. cpot improved, sats 93%, rr improved to 18.
propofol, fentanyl gtts continue as per order. am care provided, turned and repositioned, oral care. pt oliguric. plan of care discussed with Dr. Perrin and Dr. Velazco- ordered to hold eliquis. cxr completed. all safety precautions in place. afib on
monitor, right radial phuong zeroed and functioning. maps >65.
--- NOTE | 2024-07-01 08:57 | W.PN.CARDCBS ---
Today's Communication / Plan
-
Heart rate still poorly controlled at times despite loading with amiodarone
Reluctant to give Lopressor or Cardizem given hypotension requiring pressors
Tachycardia likely multifactorial
Impression / Plan
-
.
Odd Job Worker: Dr. Hahn ([facility])
Impression:
Presented w/ respiratory distress
VDRF
Reconsultation for nonsustained V. tach versus A-fib with aberrancy 06/29/2024
Influenza A Pneumonia
Aspiration pneumonia
Sepsis
Non-AL ischemic injury, troponin peak 1.5
Paroxysmal atrial fibrillation on chronic amiodarone therapy
Chronic OAC with Eliquis
Acute on chronic RF
Hypertension
Hypothyroidism
h/o breast cancer
h/o colon cancer
Vascular dementia
Echo Jun 23 2024: EF 55-60% with RODRIGUEZ, PASP 35-40 mmHg
Plan:
Remains in rapid A-fib despite loading with oral amiodarone which was started on 06/30/2024
Reluctant to give beta-raegan or calcium raegan given hypotension requiring pressors
Tachycardia likely multifactorial
Continue low-dose Eliquis
Cont tx for Flu PNA and likely aspiration pneumonia
Cont vent management.
HPI: Liza is an 88-year-old female with past medical history of paroxysmal atrial fibrillation maintained on Eliquis and amiodarone, hypertension, hypothyroidism, breast cancer, colon cancer, and vascular dementia. She presented to ER for
evaluation of respiratory distress. History is obtained from as patient is intubated and sedated. He reports they began feeling unwell earlier this week with flulike symptoms. She was given antibiotics and cough medicine by PCP. She
continued to feel poorly. He had EMS come out to evaluate her around 5 PM and reportedly she was stable with normal pulse ox and did not require hospitalization. They went to sleep later that night and when he woke up around 11 PM, he noted that
her breathing sounded labored, so he then called EMS and pulse ox was noted to be in the 70s and she was placed on nonrebreather. On arrival to the ER, she was markedly hypoxemic and in severe distress and required intubation. She remains
intubated and sedated at this time and has been admitted to the ICU with influenza A pneumonia and sepsis. Elevated troponin noted, trending up to 1.52 resulting in cardiology consultation. Has been reports no history of coronary artery disease or
prior stenting. He does note that she had a an echo within the past few months and has never been told that she has a weakened heart muscle
Progress Note - Odd Job Worker
Subjective
Date of Service: July 01, 2024
Unresponsive
Objective
Labs:
07/01/24 03:29
07/01/24 03:
Labs
Hgb 7.0 g/dL (12.0-16.0) L 07/01/24 03:
Hct 21.7 % (37.0-47.0) L 07/01/24 03:
Plt Count 298 10^3/uL (130-400) 07/01/24 03:
PT 16.7 Sec (11.4-14.6) H 06/22/24 00:57
INR 1.30 06/22/24 00:57
APTT Cancelled 06/25/24 11:30
APTT Cancelled 06/25/24 11:30
Sodium 142 mmol/L (135-145) 07/01/24 03:
Potassium 3.4 mmol/L (3.5-5.1) L 07/01/24 03:
BUN 42 mg/dl (7-17) H 07/01/24 03:29
Creatinine 2.8 mg/dL (0.6-1.0) H 07/01/24 03:
Glucose 112 mg/dl (70-99) H 07/01/24 03:29
Troponins
06/28/24 06/28/24
08:59 12:20
Troponin I 1.770 H* Cancelled
Vital Signs and I&O:
Vital Signs
Temp Pulse Resp BP Pulse Ox
99.3 F 116 20 109/49 92
07/01/24 07:34 07/01/24 06:00 07/01/24 06:00 06/30/24 22:07 07/01/24 08:00
Vital Signs
Temp Pulse Resp BP Pulse Ox
99.3 F 116 20 109/49 92
07/01/24 07:34 07/01/24 06:00 07/01/24 06:00 06/30/24 22:07 07/01/24 08:00
Intake & Output
06/29/24 06/30/24 07/01/24 07/02/24
06:59 06:59 06:59 06:59
Intake Total 1057.5 / 1085.9 1842.9 / 1892.6 1415.6 / 1493.6 156.0 / 156.0
Output Total 1355 / 1355 835 / 835 615 / 645 35 / 35
Balance -297.5 / -269.1 1007.9 / 1057.6 800.6 / 848.6 121.0 / 121.0
Physical Exam
Physical Exam
General: Unresponsive
Neck: Supple, no JVD, HJR, carotids +2 B/L, no bruits bilaterally.
Heart: Non displaced PMI, irregular, no murmurs, No S3, S4, no rubs.
Lungs: Scattered rhonchi
Extremities: No clubbing, cyanosis or edema bilaterally.
Neuro: Grossly nonfocal, awake, alert and oriented x3.
--- NOTE | 2024-07-01 09:08 | W.PN.HOSP.TC ---
Today's Communication/Plan
-
IV Lasix
Nephrology consult
continue IV Abx
prognosis poor
Assessment / Plan
Assessment / Plan
Assessment:
Acute hypoxic respiratory failure
VDRF (intubated 06/22)
- in setting of Influenza A
- wean vent/sedation per ICU team; follow ABGs and serial X-rays
- repeat CXR 06/25 with increased pulmonary edema pattern; IV Lasix per ICU as indicated
Septic shock from Influenza A, possible superimposed bacterial PNA
- continue pressors; wean as able
- completed 7 day Zosyn course and completed 5 day Tamiflu course
- recurrent fevers; ID consulted and placed on IV vanco, Cefepime, Flagyl, day 3
- follow fever/WBC trends
Hx of Parox Afib with RVR
- continue Amiodarone IV
- hold Eliquis with dropping Hb
- Echo: EF: 55-60%, moderate TR, pulmonary HTN
nonischemic myocardial injury
- trop peaked at 1.5 initially, now back to 1.77
Acute renal insufficiency, worsening
- volume overload on CXR
- IV Lasix
- Nephrology consulted
Elevated LFTs likely shock liver
- trend CMP
Hypothyroidism
- continue replacement. TSH normal
Vascular dementia
Essential HTN
- hold losartan
acute on Chronic anemia
- suspect from critical illness
- monitor Hb
- holding Eliquis
Nutrition
- TFs on hold due to vomiting TF
Hypokalemia - replete prn
DVT ppx: Eliquis
Code: DNR/DNI
Prognosis poor
Total Critical Care Time 41 minutes. I was immediately available to the patient and staff. I personally examined, reviewed labs, diagnostic images/reports, interpretations, treatment plans, discussed patient care with other providers and family or
caregivers (if patient is unable to make decisions), entered orders as appropriate and documented the medical record.
Dispo: accepted in transfer to [facility] - Dr. García, critical care. Transfer is from family request - not a medical necessity. At present time, family indicating they wish to hold off transfer, dc order removed for now. ongoing [facility] discussions.
Anticipated Discharge: > 48 hours
Subjective/Interval History
-
Date of Service: July 01, 2024
remains intubated/sedated
urine output decreasing
Objective Data
-
Labs:
Laboratory Results
07/01/24
03:29
WBC 22.4 H
Hgb 7.0 L
Hct 21.7 L
Plt Count 298
HCO3 22.0
Sodium 142
Potassium 3.4 L
Chloride 105
Carbon Dioxide 20 L
BUN 42 H
Creatinine 2.8 H
Glucose 112 H
Calcium 7.8 L
Vital Signs:
Vital Signs
Temp Pulse Resp BP Pulse Ox
99.3 F 124 18 109/49 94
07/01/24 07:34 07/01/24 08:00 07/01/24 08:00 06/30/24 22:07 07/01/24 08:00
I&O
06/30/24 07/01/24 07/02/24
06:59 06:59 06:59
Intake Total 1842.9 / 1892.6 1415.6 / 1493.6 156.0 / 156.0
Output Total 835 / 835 615 / 645 35 / 35
Balance 1007.9 / 1057.6 800.6 / 848.6 121.0 / 121.0
Physical Exam
-
General: Intubated and Appears Chronically Ill
HEENT: Normocephalic and Atraumatic
Respiratory: Rhonchi and Crackles
Cardiac: Regular Rhythm and S1/S2
GI: Soft and Other (rectal trumpet, loose stools)
Neuro: Sedated
Data Reviewed
-
Critical Care Time (in minutes): 41
Labs: Labs Reviewed by me
--- NOTE | 2024-07-01 09:21 | W.CON.NEPH ---
Consultation
-
Date/Time Consultation Requested: 07/01/2024 8:30 AM
Date/Time Consultation Performed: 07/01/2024 9:15 a.m.
Requesting Provider: Dr. Sharp
Performing Provider: Dr. Walsh
Reason for Consultation: Acute kidney injury
Medical History
-
Chief Complaint: Acute kidney
History of Present Illness:
Patient is an 88y F with PMH significant for vascular dementia, hypertension(on losartan) and hypothyroidism (on levothyroxine), AFIB on amiodarone and OAT, who presented to ED on 06/22 for evaluation of respiratory distress. The patient had been
previously diagnosed with influenza prior to her emergency room visit. She was eventually intubated shortly following her ER presentation in the setting of influenza A. She subsequently developed septic shock with superimposed bacterial pneumonia
and required pressor support. She has had ongoing issues with paroxysmal A-fib with rapid ventricular response and is now developed acute renal failure with decreasing urine output and nephrology was consulted to see this critically ill patient.
The patient's creatinine on presentation was 1.7 and is now risen to 2.8. Subsequent urinalysis has revealed 3+ blood with trace albumin. Urine output is now at 495 but weights have increased from 55 kg on presentation up to 59 kg. Abdominal
ultrasound from 06/22/2024 has not revealed hydronephrosis. [place] [address]
Past Medical History
Hypertension, atrial fibrillation, history of breast cancer, colon cancer, hypothyroidism, vascular dementia. History of partial colectomy, lumpectomy. Patient sees pulmonary at [facility], gets aspiration pneumonia once a year
Social History
Tobacco: Non-Smoker
Alcohol: None
Family History
Family History: Unable to Obtain
Allergies / Home Medications
Allergy/AdvReac Type Severity Reaction Status Date / Time
codeine Allergy Rash Verified 06/22/24 01:34
�Medication �Instructions �Recorded �Confirmed �Type
amiodarone 200 mg tablet 200 mg PO DAILY AFIB 06/22/24 06/22/24 History
amoxicillin 500 mg-potassium 1 tab PO BID Infection 06/22/24 06/22/24 History
clavulanate 125 mg tablet
(Augmentin)
apixaban 2.5 mg tablet (Eliquis) 2.5 mg PO BID Blood Clot 06/22/24 06/22/24 History
Prevention/Tx
benzonatate 100 mg capsule 100 mg PO TID PRN cough 06/22/24 06/22/24 History
bisoprolol fumarate 10 mg tablet 10 mg PO DAILY Blood Pressure 06/22/24 06/22/24 History
citalopram 10 mg tablet 10 mg PO DAILY Mental 06/22/24 06/22/24 History
Health/Anxiety
donepezil 5 mg tablet 5 mg PO HS Mental Health/Anxiety 06/22/24 06/22/24 History
doxycycline hyclate 100 mg tablet 100 mg PO BID Infection 06/22/24 06/22/24 History
famotidine 20 mg tablet (Pepcid) 20 mg PO DAILY Gastrointestinal 06/22/24 06/22/24 History
Issue
levothyroxine 112 mcg tablet 112 mcg PO DAILY Thyroid 06/22/24 06/22/24 History
losartan 100 mg tablet 100 mg PO DAILY Blood Pressure 06/22/24 06/22/24 History
olanzapine 5 mg tablet (Zyprexa) 5 mg PO DAILY Mental Health/Anxiety 06/22/24 06/22/24 History
Review of Systems
-
Unable to obtain full review of systems at this time due to: Acuity and Patient Intubation
Physical Exam
Vital Signs
Vital Signs
Temp Pulse Resp BP Pulse Ox
99.3 F 124 18 109/49 94
07/01/24 07:34 07/01/24 08:00 07/01/24 08:00 06/30/24 22:07 07/01/24 08:54
Lab Results
07/01/24 03:29
07/01/24 03:29
WBC 22.4 10^3/uL (4.8-10.8) H 07/01/24 03:29
RBC 2.32 10^6/uL (4.20-5.40) L 07/01/24 03:
Hgb 7.0 g/dL (12.0-16.0) L 07/01/24 03:
Hct 21.7 % (37.0-47.0) L 07/01/24 03:
Plt Count 298 10^3/uL (130-400) 07/01/24 03:29
Sodium 142 mmol/L (135-145) 07/01/24 03:
Potassium 3.4 mmol/L (3.5-5.1) L 07/01/24 03:
Chloride 105 mmol/L (98-107) 07/01/24 03:
Carbon Dioxide 20 mmol/L (22-30) L 07/01/24 03:
BUN 42 mg/dl (7-17) H 07/01/24 03:29
Creatinine 2.8 mg/dL (0.6-1.0) H 07/01/24 03:
eGFR 15.75 07/01/24 03:29
Glucose 112 mg/dl (70-99) H 07/01/24 03:29
Calcium 7.8 mg/dl (8.4-10.2) L 07/01/24 03:
Phosphorus 4.3 mg/dl (2.5-4.5) 06/24/24 03:08
Sww-S-Niigkfrojxb Pept > 40408 pg/ml 06/28/24 08:59
Albumin 2.8 g/dl (3.5-5.0) L 06/28/24 03:52
Physical Exam
General: intubated and sedated
HEENT: intubated via OP airway, eyes poorly tracking,Trachea Midline, No JVD and No Thyromegaly, no Bruits
Respiratory: Coarse bilaterally with rales
Cardiac: S1/S2 irregular irregular tachycardia
Breast: Deferred by me
Abdomen: Soft, Nontender, Nondistended, Normal Bowel Sounds and No Hepatosplenomegaly
Rectal: Deferred by Provider
Genito-urinary: Beckman cath
Extremities: No Clubbing, No Cyanosis and trace pedal edema
Skin: No Rash or open lesions
Neuro: Unobtainable given patient's sedated status on vent
Vascular: plus 1 pedal and radial pulses
Data Reviewed
-
Radiology: Image Personally Visualized and interpreted (Chest x-ray personally reviewed notable for bilateral hilar opacities)
Labs: Labs Reviewed by me (BMP CBC, urinalysis)
Assessment/Plan
-
Impression:
MELINDA
Metabolic acidosis
Acute hypoxic respiratory failure in setting of influenza A/vent dependent respiratory failure
Congestive heart failure versus/pneumonia
Elevated troponin
Atrial fibrillation with rapid ventricular response
History of vascular dementia
Nonischemic myocardial injury
Elevated LFTs
Hypokalemia
Plan:
MELINDA:
-Likely prerenal in setting of hemodynamic compromise in setting of atrial fibrillation with rapid ventricular response and septic shock
-No acute dialysis requirement, patient would be a poor dialysis candidate given advanced age and multiple comorbidities
-Would attempt IV diuresis given volume overload hypoxia and rising weight, will provide 80mg IV lasix
-K has been provided earlier this am
--- NOTE | 2024-07-01 09:30 | PTCARENOTE ---
per Dr. Sharp continue to hold tube feeds at this time
--- NOTE | 2024-07-01 09:55 | PHA.VAN.FU ---
Vancomycin Assessment / Plan
- Assessment
Renal Function: SCR Increasing (2.2->2.3->2.8)
WBC's are: Stable (elevated - 22.4)
In the past 24 hrs, patient has been: Febrile (100.4 - 06/30/24 @14:24)
Concomitant Antimicrobials: cefepime, metronidazole
- Assessment - Therapeutic Drug Monitoring
Random Level: 13 - last dose vanc was 1250 mg 06/29/24 11:37
Calculated half life (H): calculated between last 2 randoms ~ 90 h
- Dosing Plan
Continue: dosing by randoms
Dosing by Level: Hold off on dosing today
- Monitoring Plan
Random Level: repeat random level in AM 07/02/24
- Follow Up
Pharmacy will continue to follow.
Vancomycin Follow UP
- -
Patient Age: 88
Patient Sex: Female
Vancomycin Day #: 3
Indication: Pulmonary/Respiratory
Requesting Provider: Armin
Height / Weight:
Height 5 ft 3 in
Actual Weight 59 kg
IBW in k.4
Adjusted BW in k.8
Pertinent Past Medical History: MELINDA on CKD; Completed course of oseltamivir and Pip-tazo 06/25
- Vital Signs / Lab Results
Temp Pulse Resp BP Pulse Ox
99.3 F 124 18 109/49 94
07/01/24 07:34 07/01/24 08:00 07/01/24 08:00 06/30/24 22:07 07/01/24 08:54
Lab Results - Hematology
06/29/24 06/30/24 07/01/24
05:45 04:55 03:29
WBC 10.4 25.4 H 22.4 H
Lab Results - Chemistry
06/29/24 06/29/24 06/29/24
05:45 12:02 12:02
BUN 39 H 38 H Cancelled
Creatinine 2.2 H 2.2 H
Estimated Creat Clear 15
06/29/24 06/29/24 06/30/24
12:02 12:02 04:55
BUN 39 H
Creatinine Cancelled 2.3 H
Estimated Creat Clear 15 Cancelled 14
07/01/24
03:29
BUN 42 H
Creatinine 2.8 H
Estimated Creat Clear 11
Microbiology Results
06/30/24 09:33 Gram Stain - Preliminary
Sputum
06/27/24 11:06 Blood Culture - Preliminary
Blood/Venous No Growth in 72 hours- Final report to follow
06/27/24 10:19 Blood Culture - Preliminary
Blood/Venous No Growth in 72 hours- Final report to follow
06/27/24 14:58 Respiratory Culture - Final
Tracheal Aspirate Tiffanie albicans
Gram Stain - Final
Therapeutic Drug Monitoring
Random Vancomycin 13.7 ug/ml 07/01/24 03:29
[2024-07-01] MEDS: LASIX 80 MG IV (10:00)
--- NOTE | 2024-07-01 10:41 | W.PN.ID1 ---
Date of Service
Date of Service: July 01, 2024
Today's Communication
Continue Vanco, cefepime, metronidazole.
Assessment / Plan
# Recurrence of fever 06/26/24, resolving
# Suspect post- influenza Staph aureus, including MRSA, PNA vs aspiration PNA
# Leukocytosis - improved today
# Shock, off pressor
# VDRF since 06/22
- Of note pt received Zosyn 06/22 to 06/27/24
- 06/29/24 CXR with progression of lung opacities
- Repeat bcx's neg
- C. diff neg.
- Repeat sputum cx pending
- Continue Vancomycin IV, cefepime, and metronidazole (d3)
- Fever trending down, low grade temp x 1 yesterday
- Follow temps and wbc.
# Influenza A infection, present on admission
- VDRF
- Unvaccinated status
- s/p Oseltamivir (06/22 to 06/28)
# MELINDA on CKD
- Abx renally adjusted
Prognosis guarded.
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
Vascular dementia with behavioral disturbance
HTN
Afib
Hypothyroidism
Colon cancer s/p partial colectomy
Breast cancer s/p lumpectomy
Chief Complaint
-: Fever and Pneumonia
Subjective / Review of Systems
at bedside.
no new events.
Vital Signs / Physical Exam
Vital Signs
Vital Signs
Temp Pulse Resp BP Pulse Ox
99.3 F 124 18 109/49 94
07/01/24 07:34 07/01/24 08:00 07/01/24 08:00 06/30/24 22:07 07/01/24 08:54
Selected Entries
06/30/24
14:24
Temp 100.4 F H
Physical Exam
Constitutional: Acutely Ill and Chronically Ill
Eyes: No Conjunctival Hemorrhage and Sclera Anicteric
Cardiovascular: Irregular Rate, S1/S2 and Other (tachycardic)
Pulmonary: Coarse (anteriorly)
Gastrointestinal: Soft, Non Tender, Non Distended and Other (FMS: small amt loose stool)
Genito-Urinary: Beckman; Negative CVA Tenderness
Extremities: Negative Edema
Objective Data
Lab Data
Lab Results
07/01/24 03:29
07/01/24 03:29
PT 16.7 Sec (11.4-14.6) H 06/22/24 00:57
INR 1.30 06/22/24 00:57
APTT Cancelled 06/25/24 11:30
APTT Cancelled 06/25/24 11:30
Estimated Creat Clear 11 ml/min 07/01/24 03:29
Lactic Acid 2.8 mmol/L (0.7-2.0) H 06/22/24 05:35
Total Bilirubin 0.9 mg/dl (0.2-1.3) 06/28/24 03:52
AST 88 U/L (14-36) H 06/28/24 03:52
ALT 74 U/L (0-35) H 06/28/24 03:52
Alkaline Phosphatase 282 U/L (38-126) H 06/28/24 03:52
Most recent labs reviewed.
Micro Results:
06/27/24 10:19 Blood Culture - Preliminary
Blood/Venous No Growth in 4 days- Final report to follow
06/30/24 09:33 Respiratory Culture - Pending
Sputum Gram Stain - Preliminary
06/27/24 11:06 Blood Culture - Preliminary
Blood/Venous No Growth in 72 hours- Final report to follow
06/27/24 14:58 Respiratory Culture - Final
Tracheal Aspirate Tiffanie albicans
Gram Stain - Final
06/28/24 12:55 C. difficile GDH Antigen & Toxins - Final
Feces/Stool Negative for toxigenic C.difficile
06/22/24 07:33 Blood Culture - Final
Blood/Venous No Growth - Final Report
06/22/24 07:33 Blood Culture - Final
Blood/Venous No Growth - Final Report
06/22/24 10:38 Respiratory Culture - Final
Tracheal Aspirate NO GROWTH
Gram Stain - Final
06/22/24 15:13 MRSA Screen - Final
Nose No Methicillin Resistant Staphylococcus aureus isolated.
06/22/24 00:35 Influenza Types A & B (MIGUEL) - Final
Nasal Swab Influenza A Positive, NAAT
07/01/24 CXR: Severe bilateral interstitial and airspace opacity in both lungs in a nearly symmetric perihilar distribution which is not definitively changed. SEVERE ACUTE INTERSTITIAL and ALVEOLAR CARDIOGENIC PULMONARY EDEMA is considered most likely.
06/29/24 CXR: Progressed findings suggesting severe pulmonary edema. Pneumonia cannot be excluded.
06/28/24 CXR: Patchy bibasilar opacities, which may represent pneumonia, aspiration, or subsegmental atelectasis. No significant change compared to her study. Mild interstitial prominence, suggestive of mild pulmonary edema.
06/27/24 CXR: Mild bilateral patchy airspace disease concerning for developing pneumonia. New.
06/26/24 CXR: Persistent bilateral interstitial and alveolar pulmonary opacities with a similar distribution compared to the chest radiograph from 06/25/2024. Suspected small left pleural effusion.
06/22/24 CXR: Left hemidiaphragm elevation redemonstrated. Small left pleural effusion with associated probable atelectasis, slightly progressed.
[2024-07-01] MEDS: VENTOLIN NEBULES 2.5 MG INH ×2 (12:06→15:18)
--- NOTE | 2024-07-01 12:52 | PTCARENOTE ---
Addendum entered by Carol Olvera RN 07/01/24 12:54:
at bedside and remains updated, verbalized understanding to plan of care and inability to wean at this time.
Original Note:
propofol off, fentanyl remains on per Dr. Sharp for wean. pt sats 87%, tachypneic, placed back on AC. propofol remains off, fentanyl continues, pt turned and repositioned, assessment unchanged further.
[2024-07-01] MEDS: STERILE WATER FOR INJECTION 10 ML IV (13:02)
[2024-07-01] MEDS: MAXIPIME 1000 MG IV (13:02)
--- NOTE | 2024-07-01 13:09 | PTCARENOTE ---
fentanyl and propofol both off. pt restless at times.
--- NOTE | 2024-07-01 13:46 | RESPNOTE ---
Respiratory: wean started at 1225 PSV 5/5 50% within two to three minutes patient pulse oximetry decreased from 94-95 down to 87%. Returned patient back to previous vent settings
--- NOTE | 2024-07-01 14:16 | PTCARENOTE ---
right radial a-line noted to be partially out, line not functioning and removed, pressure held, site c/d/i.
--- NOTE | 2024-07-01 14:17 | PTCARENOTE ---
holding patients right hand- right radial a-line noted to be partially out, line not functioning and removed, pressure held, site c/d/i. made aware.
--- NOTE | 2024-07-01 16:22 | PTCARENOTE ---
per Dr. Sharp- chriss SBT this afternoon, restart sedation. fentanyl and propofol infusions restarted at previous rate. pt biting on ett, rigid and restless at times. assessment unchanged further.
--- NOTE | 2024-07-01 20:00 | PTCARENOTE ---
Rec'd pt with wrists restrained for pt safety, at bedside,no response to commands, extremities rigid, dip gtt at 15mic, fent gtt at 75 schuyler, AFib, weak distal pulses, + anasarca, , #7 oral ett- moved to R side at 22 cm, ac 16, tv 350, 5
peep, 60%, lungs coarse, rhonchi, wheezes, thick quiñones secretions, hypo bowel sounds, rectal trumpet to str drainage bag draining brown liquid stool, oral salem clamped for meds, lomeli draining scant bety urine
[2024-07-01] MEDS: ProAmatine 5 MG TUBE (20:56)
--- NOTE | 2024-07-01 21:00 | PTCARENOTE ---
midodrine 5mg po given for bp
[2024-07-01] MEDS: PACERONE 400 MG TUBE (21:11)
[2024-07-01] MEDS: NEO-SYNEPHRINE 250 IV (22:11)
--- NOTE | 2024-07-01 22:14 | PTCARENOTE ---
B MARIPOSA Smith aware of bp, vidal gtt started- to keep map > 65
[2024-07-02] VITALS (53 sets, daily range): BP systolic 79–139; BP diastolic 47–87; BMI 23.3
--- NOTE | 2024-07-02 | PTCARENOTE ---
sys reviewed, fent 50mic given before am care, chg bath done, linens changed
[2024-07-02] MEDS: SUBLIMAZE 50 MCG IV ×3 (00:05→16:33)
[2024-07-02] MEDS: DIPRIVAN 100 IV ×2 (00:10→10:59)
--- NOTE | 2024-07-02 04:00 | PTCARENOTE ---
sys reviewed, ett repos on left side at 22 cm
[2024-07-02 04:22] LABS: Hematocrit 22.5 % (37.0-47.0); Hemoglobin 7.1 g/dL (12.0-16.0); Mean Corp Hgb Conc. 31.6 g/dL (33.0-37.0); Mean Corpuscular Hgb 30.3 pg (27.0-31.0); Mean Corpuscular Volume 96.2 fL (81.0-99.0); Mean Platelet Volume 10.4 fL (7.4-10.4); Platelet Count 417 10^3/uL (130-400); Red Blood Cell Count 2.34 10^6/uL (4.20-5.40); Red Cell Dist. Width 15.1 % (11.5-14.5)
[2024-07-02 04:37] LABS: Vancomycin Random 11.3 ug/ml
[2024-07-02 04:41] LABS: Blood Urea Nitrogen 48 mg/dl (7-17); Calcium 7.8 mg/dl (8.4-10.2); Carbon Dioxide 19 mmol/L (22-30); Chloride 107 mmol/L (98-107); Estimated Creatinine Clearance 10 ml/min; Glucose 101 mg/dl (70-99); Potassium 3.8 mmol/L (3.5-5.1); Sodium 144 mmol/L (135-145); Triglycerides 154 mg/dl (10-149); eGFR 13.94
[2024-07-02] MEDS: SYNTHROID 112 MCG TUBE (05:22)
[2024-07-02] MEDS: FLAGYL 500 MG 100 IV ×3 (05:22→21:01)
--- NOTE | 2024-07-02 07:10 | W.PN.INTV ---
Today's Communication / Plan
Recommendations
Remains on vent, no attempts for SBT given futility
Family planning to w/d tomorrow per prior discussions
Updated PCP by 's request, she is also in agreement with plan
Continue care for now, would not add new treatment at this point
Assessment
-
88-year-old female with history of atrial fibrillation, vascular dementia, breast cancer, colon cancer, presents with increased shortness of breath since 06/21. Patient refused transport upon first call to 911 but second call, was noted to be
saturating in the 70s, intubated in the ED. Influenza A positive, troponin positive. Given aspirin in the ED, Tamiflu via feeding tube. Patient was also given vancomycin and Zosyn, admitted to ICU for further management
Acute hypoxic respiratory failure-due to influenza A pneumonia/cannot rule out aspiration event/heart failure component
Saturation in the 70s
Intubated in ED 06/21
proBNP 06/22/2024 is 19,500
Hypotension, likely septic shock
Requiring pressors
Elevated troponin
Acute renal insufficiency on CKD suspected
Baseline not known
Elevated lactate
Acute transaminitis
Abnormal EKG
First-degree AV block
Atrial fibrillation/atrial flutter
Conditions present prior to admission
History of recurrent pneumonia
Suspected aspiration syndrome
Follows pulmonary at [place] ([facility])
History of atrial fibrillation
Amiodarone therapy
On Eliquis
Hypothyroidism
History of vascular dementia
Plan
Remains critically ill, on mechanical ventilation. Intermittently on low-dose dose vasopressors.
Precedex discontinued 06/29/2024 due to increased work of breathing, hypoxemia and fever. Likely aspiration pneumonitis/pneumonia.
Will try to minimize propofol and fentanyl.
Patient biting the tube, agitated with sedation breaks
Okay to restart citalopram, Zyprexa daily via tube.
May need to get occasional Haldol if agitation continues.
Continue outpatient psychotropic medications. Unclear if there is absorption due to vomiting.
Suspect ongoing muscle weakness also impairing ability to wean at this point.
Will keep at lowest dose possible to maintain comfort. RASS score 0 to -1 if possible.
Continue with daily sedation breaks.
With sedation breaks: Not following commands but awake. Possibly baseline due to underlying dementia-becomes agitated and tachypneic with every sedation break.
Mechanical ventilation settings reviewed: Mechanical ventilation day #9
Continue with volume-cycled ventilation-AC 16/350/5/70%
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
ETT with thin secretions. Not excessive.
Rhonchi bilaterally on exam. Not bronchospastic.
Failed spontaneous breathing trial 06/25/2025-increased work of breathing, ABG with mild hypercapnia.
Attempted spontaneous breathing trial at 07/20/2023: Increased work of breathing after few minutes. Trial aborted.
Spontaneous breathing trial 06/28/2024: 2 hours on Precedex and low-dose fentanyl as well as the patient had increased work of breathing.
ABG 7.45/38/97. Unfortunately, not adequate for extubation as the patient had a respiratory rate of mid 20s to 30s. Likely hypercapnic.
Continue DuoNebs 3 times a day for secretion clearance.
No indication for steroids.
Currently off low-dose Sylvain-Synephrine, add midodrine PRN
Renal function progressively worsening (initial 1.6-1.7 on adm -> 2.3 -> 2.8)
Given attempts at diuresis: 06/25/2025 and 06/26/2024 and 06/28/2024.
20 mg of Lasix given 06/30/2024
proBNP greater than > 27,000, urine output progressively poor 2850 -> 895 -> 785 -> 505 -> 30 (over past 4 days)
Renal following, appreciate recs--HD would not be offered in this patient, family agrees
Patient also appears to have aspiration syndrome per discussion with at the bedside on admission, pneumonia every year-will need to be addressed later on.
Pneumonia- Persistent low-grade fevers
Leukocytosis resolved
Cultures reviewed:
Repeat cultures negative. sputum 06/30 pending
C. difficile negative
Sputum + kip 06/27/24; neg 06/22/24; MRSA neg
Blood negative 06/27, 06/22
Flu A + 06/22
Cannot rule out aspiration pneumonitis as a reason for the fever
Completed Zosyn 06/28/2024; completed Tamiflu 06/28/2024
Antibiotics restarted 06/29/2024: Aspiration event, fevers, leukocytosis - CFP/Fgl
Discontinue Precedex may be related to low-grade fevers as well
Troponin mildly [id number] per Cardiology.
ECHO 06/23 stable
Rate control, amio/Eliquis continued
NSVT/atrial fibrillation. Slightly tachycardic-likely due to agitation.
Transaminitis noted-stable/monitor LFTs
Likely secondary to shock, sepsis- abdominal ultrasound unremarkable
OG tube in place/remains NPO
Hold tube feedings: Patient has diarrhea also had vomiting and high residuals 06/24/2024.
Vomiting 06/29/2024-tube feedings on hold. Will attempt to restart tube feedings tomorrow 07/01/2024.
Abdominal exam is benign-decreased bowel sounds suspect ileus
Abdominal film: Nonspecific bowel pattern 06/29/2024
Head of the bed elevation, aspiration precaution
Anemia: Chronic. Stable- Continue to follow will transfuse for hemoglobin less than 7
Normal platelet count
PPI for GI prophylaxis
DVT prophylaxis-Eliquis
Reviewed with critical care nursing, cardiology, primary service on a daily basis.
Case discussed with primary care team as well.
DNR status
Family Discussions
Juan A 07/02/24- Spoke to PCP Dr Hahn who agrees that w/d plan of care is best, she will try to be present tomorrow to help the cope with it. She will coordinate with daughter regarding timing. POA received and in chart, confirmed daughter
is POA.
Juan A 07/01/24- Spoke to daughter who would like to w/d on patient by at least Monday, she cannot do it tomorrow due to a dental procedure she is having done. She asked us to offer patient's a chance to choose when he would like this done. I
spoke to him at bedside to which he became extremely belligerent threatening to yamil if anyone touches her. He does not feel she is suffering despite being prolonged on the vent. He asked patient 'are you suffering?' and she did not respond but he
proceeded to accept her lack of response/unresponsiveness and an answer of 'no.'
He does not wish to move forward at all. I communicated this to the daughter who states she will be here Monday and will move forward with the plan at that time.
Dr. Nick updated at the bedside. 06/26/2024, 06/27/2024, 06/28/2024, 06/29/2024. 06/30/2024
Power of finger lift operator daughter who is a radiation oncologist from [place] is here and she was updated by Dr. Nick 06/29/2024.
[address] Nick also updated patient's primary care doctor again on 06/29/[address] Nick discussed extensively with 06/28/2024. Also discussed with patient's outpatient primary care doctor Dr. Hu.
Patient's , upset about the lack of progress. Asking to transfer to the different hospital. Also threatening with litigation. He he was explained that unfortunately his is very deconditioned, with advanced dementia, Frequent
pneumonias, primary care doctor states that the patient has been declining over the last year significantly. I told him that likely this is going to be a prolonged mechanical ventilation due to slow progress with improvement and advanced age and
comorbidities. Will continue with supportive care. Prognosis poor.
Diagnostic Data
Chest X-Ray:
Chest x-ray 06/30/2024: Reviewed endotracheal tube in place. Left hemidiaphragm elevation versus hiatal hernia. Prominence of vascular markings. Stable mild patchy parenchymal opacities in bilateral lungs. No pleural effusion. Cardiomegaly.
Chest x-ray 06/29/2024: Worsening bilateral infiltrates, left hemidiaphragm elevation. Pulmonary edema versus pneumonia
Chest x-ray 06/28/2024, continues to demonstrate patchy bilateral opacities no significant change compared to prior. Mild interstitial prominence suggestive pulmonary edema. Small left pleural effusion.
Chest x-ray 06/27/2024: showed mild bilateral patchy airspace disease concerning for developing pneumonia. Slight prominence of the interstitial markings diffusely. Mild pulmonary edema. Left pleural effusion mild. Cardiomegaly. Moderate
elevation of the left hemidiaphragm.
ABG 06/30/2024: 7.35/48/62
AB.48/37/217 (06/29/2024)
CT Scan:
Echo: 06/23/24- Small left ventricle with overall normal systolic function; left ventricular ejection fraction is 55-60% by visual assessment. Normal left ventricular wall thickness. Normal right ventricular size and function. Both ventricles
appear underfilled Dilated left atrium. Dilated right atrium. Calcified, trileaflet aortic valve with adequate excursion and a mean gradient of 8 mmHg. Tricuspid valve opens normally with moderate tricuspid regurgitation. Estimated pulmonary artery
pressure of 35-40 mmHg, assuming a right atrial pressure of 3 mmHg. Structurally normal pulmonic valve without significant stenosis or regurgitation. Normal pericardium without effusion. The IVC is of normal size.
PFT's:
Reports and relevant images were personally reviewed.
Critical care statement: A total of 51 minutes of critical care time was provided for this patient today. This includes management of unstable vital signs, evaluation of the patient at bedside, reviewing the patient's pertinent medical records
including ventilator settings, arterial blood gases, radiographs, microbiology, laboratory evaluations and discussion with primary team, critical care nursing, and respiratory therapy.
Subjective Dataa
Subjective Data
Date of Service:
Date of Service: July 02, 2024
Chief Complaint: Supervisor Cell Efficiency Follow Up (Acute hypoxemic respiratory failure requiring intubation)
Subjective:
Remains critically ill, on pressors on/off overnight
at bedside
Objective Data
Data Reviewed
Vital Signs / I&O / Oxygen:
Vital Signs
Temp Pulse Resp BP Pulse Ox
97.6 F 113 19 104/68 100
07/02/24 04:00 07/02/24 06:00 07/02/24 06:00 07/02/24 06:00 07/02/24 06:00
Intake and Output
07/01/24 07/02/24 07/03/24
06:59 06:59 06:59
Intake Total 1415.6 / 1493.6 878.5 / 878.5
Output Total 615 / 645 575 / 575
Balance 800.6 / 848.6 303.5 / 303.5
SaO2 [CPAP] 94
SaO2 [ASV] 94
SaO2 [A/C] 100
SaO2 100
Physical Exam
General: Other ( restless) and Other (Left upper extremity midline)
HEENT: Normocephalic and Anicteric
Cardiovascular: S1-S2, Irregular Rhythm, Murmur (n) and Rub (n)
Respiratory: Wheeze (n), Crackles (n), Rhonchi (Mild scattered bilaterally) and ET Tube (No significant secretion )
GI: Soft, Non Distended, Non Tender and Other (Decreased bowel sounds)
Neurology: Lethargic (Sedated but does spontaneously move extremities, increased work of breathing with sedation breaks, not following commands.)
Skin: Cyanosis (n), Jaundice (n), Rash (n) and Bruising (Few)
Labs/Micro/Reports
Lab Data
07/02/24 03:46
07/02/24 03:46
Microbiology
06/30/24 09:33 Sputum Respiratory Culture - Preliminary
Gram negative bacilli
Kip albicans
06/30/24 09:33 Sputum Gram Stain - Preliminary
06/27/24 11:06 Blood/Venous Blood Culture - Preliminary
No Growth in 4 days- Final report to follow
06/27/24 10:19 Blood/Venous Blood Culture - Preliminary
No Growth in 4 days- Final report to follow
06/27/24 14:58 Tracheal Aspirate Respiratory Culture - Final
Kip albicans
06/27/24 14:58 Tracheal Aspirate Gram Stain - Final
[2024-07-02] MEDS: LOW STRENGTH ASPIRIN 81 MG TUBE (07:33)
[2024-07-02] MEDS: PACERONE 400 MG TUBE ×3 (07:33→21:01)
[2024-07-02] MEDS: MIRALAX TUBE (07:34)
[2024-07-02] MEDS: CELEXA 10 MG TUBE (07:34)
[2024-07-02] MEDS: ZYPREXA 5 MG TUBE ×2 (07:34→19:15)
[2024-07-02] MEDS: PROTONIX IV 40 MG IV (07:34)
[2024-07-02] MEDS: NSS (PRESERVATIVE FREE) 10 ML IV (07:34)
--- NOTE | 2024-07-02 08:08 | W.PN.NEPH.PH ---
Today's Communication / Plan
-
Escalate Lasix to 80 mg IV twice daily
No acute dialysis required
Remains hemodynamically labile
Assessment/Plan
-
Impression:
MELINDA
Metabolic acidosis
Acute hypoxic respiratory failure in setting of influenza A/vent dependent respiratory failure
Congestive heart failure versus/pneumonia
Elevated troponin
Atrial fibrillation with rapid ventricular response
History of vascular dementia
Nonischemic myocardial injury
Elevated LFTs
Hypokalemia
Plan:
MELINDA:
-Likely prerenal in setting of hemodynamic compromise in setting of atrial fibrillation with rapid ventricular response and septic shock
-No acute dialysis requirement, patient would be a poor dialysis candidate given advanced age and multiple comorbidities, this was discussed with the this morning he stated he would not want dialysis either
-creatinine up to 3.1 but remains nonoliguric after lasix but weights rising, CXR reviewed: Noted persistent bilateral hilar infiltrates
-Would attempt IV diuresis given volume overload hypoxia and rising weight, will increase Lasix 80mg IV twice daily
-K has been provided earlier this am
-Remains on multiple antibiotic renal dosages reviewed
-Patient critically ill with hemodynamic instability and vent dependent respiratory failure with worsening acute renal failure
Total Time Spent with Patient (in minutes): 31 minutes critical care time spent with
-
-
Date of Service: July 02, 2024
CC / HPI / ROS
-
Chief Complaint:
Acute kidney injury
History of Present Illness:
Kidney failure worsening with creatinine up to 3.1
Hemodynamically labile
Remains intubated
Review of Systems:
Nonoliguric 600 cc
Intubated with FiO2 of
Low-grade fever
Weights up
Labs
-
Labs:
WBC 26.0 10^3/uL (4.8-10.8) H 07/02/24 03:46
RBC 2.34 10^6/uL (4.20-5.40) L 07/02/24 03:46
Hgb 7.1 g/dL (12.0-16.0) L 07/02/24 03:46
Hct 22.5 % (37.0-47.0) L 07/02/24 03:46
Plt Count 417 10^3/uL (130-400) H D 07/02/24 03:46
Sodium 144 mmol/L (135-145) 07/02/24 03:46
Potassium 3.8 mmol/L (3.5-5.1) 07/02/24 03:46
Chloride 107 mmol/L (98-107) 07/02/24 03:46
Carbon Dioxide 19 mmol/L (22-30) L 07/02/24 03:46
BUN 48 mg/dl (7-17) H 07/02/24 03:46
Creatinine 3.1 mg/dL (0.6-1.0) H 07/02/24 03:46
eGFR 13.94 07/02/24 03:46
Glucose 101 mg/dl (70-99) H 07/02/24 03:46
Calcium 7.8 mg/dl (8.4-10.2) L 07/02/24 03:46
Phosphorus 4.3 mg/dl (2.5-4.5) 06/24/24 03:08
Xua-P-Htyelibrrkj Pept > 04330 pg/ml 06/28/24 08:59
Albumin 2.8 g/dl (3.5-5.0) L 06/28/24 03:52
Physical Exam
-
Vital Signs:
Vital Signs
Temp Pulse Resp BP Pulse Ox
97.6 F 124 14 110/58 100
07/02/24 04:00 07/02/24 08:00 07/02/24 08:00 07/02/24 08:00 07/02/24 08:00
Cardiovascular:: Regular rate and rhythm
Respiratory:: Bilateral: Coarse
Lung Excursion:: Normal
Abdomen:: Nontender and Soft
Bowel Sounds:: Decreased
Extremity Edema:: +1: Bilateral:
Beckman Catheter: Yes
Other Findings::
General: Intubated and sedated;
--- NOTE | 2024-07-02 08:10 | PTCARENOTE ---
pt received from previous rn- ett to vent- continues to be restless at times, extremities rigid, does not follow commands. propofol and fentanyl continue per order. turned and repositioned, am care provided. ogt confirmed with xray and auscultation.
pt oliguric- lomeli draining yellow urine. rectal trumpet in place. plan of care discussed with - verbalized understanding. afib on monitor. see vent settings as charted. all safety precautions in place.
--- NOTE | 2024-07-02 08:21 | PHA.VAN.FU ---
Vancomycin Assessment / Plan
- Assessment
Renal Function: SCR Increasing
WBC's are: Trending Up
Concomitant Antimicrobials: cefepime, metronidazole
- Assessment - Therapeutic Drug Monitoring
Random Level: 11.3 - drawn ~24H after previous level of 13.7
Calculated ke: 0.0079
Calculated half life (H): 87.4
- Dosing Plan
Dosing by Level: Re-dose today (Vanc 500mg)
- Monitoring Plan
No level(s) ordered at this time: based on half-life, anticipate will take several days prior to re-dosing
- Follow Up
Pharmacy will continue to follow.
Vancomycin Follow UP
- -
Patient Age: 88
Patient Sex: Female
Vancomycin Day #: 4
Indication: Pulmonary/Respiratory
Requesting Provider: Dr. Funez
Pertinent Antimicrobial Allergies:
no pertinent antibiotic allergies
Height / Weight:
Height 5 ft 3 in
Actual Weight 59.7 kg
IBW in k.4
Adjusted BW in k.8
Pertinent Past Medical History: CKD, influenza
- Vital Signs / Lab Results
Temp Pulse Resp BP Pulse Ox
97.6 F 124 14 110/58 100
07/02/24 04:00 07/02/24 08:00 07/02/24 08:00 07/02/24 08:00 07/02/24 08:00
Lab Results - Hematology
06/30/24 07/01/24 07/02/24
04:55 03:29 03:46
WBC 25.4 H 22.4 H 26.0 H
Lab Results - Chemistry
06/29/24 06/29/24 06/29/24
12:02 12:02 12:02
BUN 38 H Cancelled
Creatinine 2.2 H Cancelled
Estimated Creat Clear 15
06/29/24 06/30/24 07/01/24
12:02 04:55 03:29
BUN 39 H 42 H
Creatinine 2.3 H 2.8 H
Estimated Creat Clear Cancelled 14 11
07/02/24
03:46
BUN 48 H
Creatinine 3.1 H
Estimated Creat Clear 10
Microbiology Results
06/30/24 09:33 Respiratory Culture - Final
Sputum Klebsiella pneumoniae
Tiffanie albicans
Gram Stain - Final
06/27/24 11:06 Blood Culture - Preliminary
Blood/Venous No Growth in 4 days- Final report to follow
06/27/24 10:19 Blood Culture - Preliminary
Blood/Venous No Growth in 4 days- Final report to follow
Therapeutic Drug Monitoring
Random Vancomycin 11.3 ug/ml 07/02/24 03:46
--- NOTE | 2024-07-02 08:42 | W.PN.CARDCBS ---
Today's Communication / Plan
-
Will add digoxin 0.125 mg now and every 48 hours. Continue amiodarone. Ventricular rates remain modestly elevated.
Continue aggressive diuresis try to help with ventilatory status.
Continue Sylvain-Synephrine for blood pressure support.
Continue antibiotics.
Long-term prognosis appears to be poor.
Impression / Plan
-
.
College [employer] Coordinator: Dr. Hahn ([facility] Cardiology)
Impression:
Presented w/ respiratory distress
VDRF
Reconsultation for nonsustained V. tach versus A-fib with aberrancy 06/29/2024
Influenza A Pneumonia
Aspiration pneumonia
Sepsis
Non-FL ischemic injury, troponin peak 1.5
Paroxysmal atrial fibrillation on chronic amiodarone therapy
Chronic OAC with Eliquis
Acute on chronic RF
Hypertension
Hypothyroidism
h/o breast cancer
h/o colon cancer
Vascular dementia
Echo Jun 23 2024: EF 55-60% with RODRIGUEZ, PASP 35-40 mmHg
Plan:
A-fib remains somewhat poorly controlled. Will continue amiodarone 400 mg p.o. 3 times daily. Will add digoxin 0.125 mg IV now and every 48 hours.
Tachycardia likely multifactorial
Continue low-dose Eliquis
Okay to increase Lasix to try and improve ventilatory status. Creatinine up to 3.1. Continue to follow.
Continue Sylvain-Synephrine for blood pressure support.
Cont tx for Flu PNA and likely aspiration pneumonia
Cont vent management.
Discussed with at bedside. He is unsure if he is willing to proceed with tracheostomy.
CC time 31 min
HPI: Liza is an 88-year-old female with past medical history of paroxysmal atrial fibrillation maintained on Eliquis and amiodarone, hypertension, hypothyroidism, breast cancer, colon cancer, and vascular dementia. She presented to ER for
evaluation of respiratory distress. History is obtained from as patient is intubated and sedated. He reports they began feeling unwell earlier this week with flulike symptoms. She was given antibiotics and cough medicine by PCP. She
continued to feel poorly. He had EMS come out to evaluate her around 5 PM and reportedly she was stable with normal pulse ox and did not require hospitalization. They went to sleep later that night and when he woke up around 11 PM, he noted that
her breathing sounded labored, so he then called EMS and pulse ox was noted to be in the 70s and she was placed on nonrebreather. On arrival to the ER, she was markedly hypoxemic and in severe distress and required intubation. She remains
intubated and sedated at this time and has been admitted to the ICU with influenza A pneumonia and sepsis. Elevated troponin noted, trending up to 1.52 resulting in cardiology consultation. Has been reports no history of coronary artery disease or
prior stenting. He does note that she had a an echo within the past few months and has never been told that she has a weakened heart muscle
Progress Note - College [employer] Coordinator
Subjective
Date of Service: July 02, 2024
Remains on ventilator in [facility] with mildly elevated ventricular rates. White blood cell count remains elevated.
Objective
Labs:
07/02/24 03:46
07/02/24 03:46
Labs
Hgb 7.1 g/dL (12.0-16.0) L 07/02/24 03:46
Hct 22.5 % (37.0-47.0) L 07/02/24 03:46
Plt Count 417 10^3/uL (130-400) H D 07/02/24 03:46
PT 16.7 Sec (11.4-14.6) H 06/22/24 00:57
INR 1.30 06/22/24 00:57
APTT Cancelled 06/25/24 11:30
APTT Cancelled 06/25/24 11:30
Sodium 144 mmol/L (135-145) 07/02/24 03:46
Potassium 3.8 mmol/L (3.5-5.1) 07/02/24 03:46
BUN 48 mg/dl (7-17) H 07/02/24 03:46
Creatinine 3.1 mg/dL (0.6-1.0) H 07/02/24 03:46
Glucose 101 mg/dl (70-99) H 07/02/24 03:46
Vital Signs and I&O:
Vital Signs
Temp Pulse Resp BP Pulse Ox
97.3 F 124 14 110/58 100
07/02/24 07:40 07/02/24 08:00 07/02/24 08:00 07/02/24 08:00 07/02/24 08:00
Vital Signs
Temp Pulse Resp BP Pulse Ox
97.3 F 124 14 110/58 100
07/02/24 07:40 07/02/24 08:00 07/02/24 08:00 07/02/24 08:00 07/02/24 08:00
Intake & Output
06/30/24 07/01/24 07/02/24 07/03/24
06:59 06:59 06:59 06:59
Intake Total 1842.9 / 1892.6 1415.6 / 1493.6 878.5 / 891.5 26.0 / 26.0
Output Total 835 / 835 615 / 645 575 / 605 60 / 60
Balance 1007.9 / 1057.6 800.6 / 848.6 303.5 / 286.5 -34.0 / -34.0
Physical Exam
Physical Exam
GEN: No distress, intubated/sedated
HEENT: supple, anicteric, mmm
LUNGS: bilat rhonchi
CV: Irreg, S1/S2, 1/6 syst LSB, no gallop
ABD: soft, BS+, NT/ND
EXT: No edema
NEURO: Gross non-focal
SKIN: No rash
[2024-07-02] MEDS: LANOXIN 125 MCG IV (09:33)
--- NOTE | 2024-07-02 10:06 | W.PN.ID1 ---
Date of Service
Date of Service: July 02, 2024
Today's Communication
DV Vancomycin.
Assessment / Plan
# Recurrence of fever 06/26/24, resolving
# Suspect aspiration PNA
# Leukocytosis trending up
# Shock, off pressor
# pulm edema
# VDRF since 06/22
- Of note pt received Zosyn 06/22 to 06/27/24
- 06/29/24 CXR with progression of lung opacities
- Repeat bcx's neg
- C. diff neg.
- Repeat sputum cx Klebsiella
- DC Vancomycin
- Continue cefepime, and metronidazole (d4) for now
# Influenza A infection, present on admission
- VDRF
- Unvaccinated status
- s/p Oseltamivir (06/22 to 06/28)
# MELINDA on CKD
- Continues to deteriorate
Prognosis poor.
POA planning to withdraw care tomorrow.
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
Vascular dementia with behavioral disturbance
HTN
Afib
Hypothyroidism
Colon cancer s/p partial colectomy
Breast cancer s/p lumpectomy
Chief Complaint
-: Leukocytosis and Pneumonia
Subjective / Review of Systems
Remains on vent.
Vital Signs / Physical Exam
Vital Signs
Vital Signs
Temp Pulse Resp BP Pulse Ox
97.3 F 112 15 97/70 100
07/02/24 07:40 07/02/24 09:33 07/02/24 09:30 07/02/24 09:30 07/02/24 09:30
Physical Exam
Constitutional: Acutely Ill and Chronically Ill
Eyes: Sclera Anicteric
Cardiovascular: Irregular Rate and Other (tachycardic)
Pulmonary: Clear (anteriorly)
Gastrointestinal: Soft, Non Tender and Non Distended
Genito-Urinary: Beckman
Objective Data
Lab Data
Lab Results
07/02/24 03:46
07/02/24 03:46
PT 16.7 Sec (11.4-14.6) H 06/22/24 00:57
INR 1.30 06/22/24 00:57
APTT Cancelled 06/25/24 11:30
APTT Cancelled 06/25/24 11:30
Estimated Creat Clear 10 ml/min 07/02/24 03:46
Lactic Acid 2.8 mmol/L (0.7-2.0) H 06/22/24 05:35
Total Bilirubin 0.9 mg/dl (0.2-1.3) 06/28/24 03:52
AST 88 U/L (14-36) H 06/28/24 03:52
ALT 74 U/L (0-35) H 06/28/24 03:52
Alkaline Phosphatase 282 U/L (38-126) H 06/28/24 03:52
Most recent labs reviewed.
Micro Results:
06/30/24 09:33 Respiratory Culture - Final
Sputum Klebsiella pneumoniae
Tiffanie albicans
Gram Stain - Final
06/27/24 11:06 Blood Culture - Preliminary
Blood/Venous No Growth in 4 days- Final report to follow
06/27/24 10:19 Blood Culture - Preliminary
Blood/Venous No Growth in 4 days- Final report to follow
06/27/24 14:58 Respiratory Culture - Final
Tracheal Aspirate Tiffanie albicans
Gram Stain - Final
06/28/24 12:55 C. difficile GDH Antigen & Toxins - Final
Feces/Stool Negative for toxigenic C.difficile
06/22/24 07:33 Blood Culture - Final
Blood/Venous No Growth - Final Report
06/22/24 07:33 Blood Culture - Final
Blood/Venous No Growth - Final Report
06/22/24 10:38 Respiratory Culture - Final
Tracheal Aspirate NO GROWTH
Gram Stain - Final
06/22/24 15:13 MRSA Screen - Final
Nose No Methicillin Resistant Staphylococcus aureus isolated.
06/22/24 00:35 Influenza Types A & B (MIGUEL) - Final
Nasal Swab Influenza A Positive, NAAT
07/01/24 CXR: Severe bilateral interstitial and airspace opacity in both lungs in a nearly symmetric perihilar distribution which is not definitively changed. SEVERE ACUTE INTERSTITIAL and ALVEOLAR CARDIOGENIC PULMONARY EDEMA is considered most likely.
06/29/24 CXR: Progressed findings suggesting severe pulmonary edema. Pneumonia cannot be excluded.
06/28/24 CXR: Patchy bibasilar opacities, which may represent pneumonia, aspiration, or subsegmental atelectasis. No significant change compared to her study. Mild interstitial prominence, suggestive of mild pulmonary edema.
06/27/24 CXR: Mild bilateral patchy airspace disease concerning for developing pneumonia. New.
06/26/24 CXR: Persistent bilateral interstitial and alveolar pulmonary opacities with a similar distribution compared to the chest radiograph from 06/25/2024. Suspected small left pleural effusion.
06/22/24 CXR: Left hemidiaphragm elevation redemonstrated. Small left pleural effusion with associated probable atelectasis, slightly progressed.
Care Review
Plan reviewed with: Physician (Dr. Danny Perrin)
--- NOTE | 2024-07-02 10:17 | W.PN.HOSP.TC ---
Today's Communication/Plan
-
continue IV Lasix, IV Abx, IV Amio+Dig
ongoing goals of care discussions with family
Assessment / Plan
Assessment / Plan
Assessment:
Acute hypoxic respiratory failure
VDRF (intubated 06/22)
- in setting of Influenza A
- wean vent/sedation per ICU team; follow ABGs and serial X-rays. Nearing close to indicated trach
- repeat CXR 06/25 with increased pulmonary edema pattern; IV Lasix per ICU as indicated
Septic shock from Influenza A, possible superimposed bacterial PNA
- continue pressors; wean as able
- completed 7 day Zosyn course and completed 5 day Tamiflu course
- recurrent fevers; continue IV Cefepime, Flagyl, day 4 per ID
- follow fever/WBC trends
Hx of Parox A. fib with RVR
- continue Amiodarone IV
- continue Digoxin
- continue Eliquis
- Echo: EF: 55-60%, moderate TR, pulmonary HTN
nonischemic myocardial injury
- trop peaked at 1.5 initially, now back to 1.77
Acute renal insufficiency, worsening
- volume overload on CXR
- IV Lasix
- Nephrology following
Elevated LFTs likely shock liver
- trend CMP
Hypothyroidism
- continue replacement. TSH normal
Vascular dementia
Essential HTN
- hold losartan
acute on Chronic anemia
- suspect from critical illness
- monitor Hb
Nutrition
- TFs on hold due to vomiting TF
Hypokalemia - replete prn
DVT ppx: Eliquis
Code: DNR/DNI
Prognosis poor
Total Critical Care Time 41 minutes. I was immediately available to the patient and staff. I personally examined, reviewed labs, diagnostic images/reports, interpretations, treatment plans, discussed patient care with other providers and family or
caregivers (if patient is unable to make decisions), entered orders as appropriate and documented the medical record.
Dispo: accepted in transfer to [facility] - Dr. García, critical care. Transfer is from family request - not a medical necessity. At present time, family indicating they wish to hold off transfer, dc order removed for now. ongoing [facility] discussions with
ICU team and correspondence reviewed. MOHANA Daughter returning from [place] and considering withdrawal of care possibly in 24 hours.
Anticipated Discharge: 24 - 48 hours
Subjective/Interval History
-
Date of Service: July 02, 2024
remains intubated/sedated
remains volume overloaded, receiving IV Lasix
per reports, family/S.O not interested in dialysis and considering withdrawal in 24 hours
Objective Data
-
Labs:
Laboratory Results
07/02/24
03:46
WBC 26.0 H
Hgb 7.1 L
Hct 22.5 L
Plt Count 417 H D
Sodium 144
Potassium 3.8
Chloride 107
Carbon Dioxide 19 L
BUN 48 H
Creatinine 3.1 H
Glucose 101 H
Calcium 7.8 L
Vital Signs:
Vital Signs
Temp Pulse Resp BP Pulse Ox
97.3 F 112 15 97/70 100
07/02/24 07:40 07/02/24 09:33 07/02/24 09:30 07/02/24 09:30 07/02/24 09:30
I&O
07/01/24 07/02/24 07/03/24
06:59 06:59 06:59
Intake Total 1415.6 / 1493.6 878.5 / 891.5 26.0 / 26.0
Output Total 615 / 645 575 / 605 60 / 60
Balance 800.6 / 848.6 303.5 / 286.5 -34.0 / -34.0
Physical Exam
-
General: No Apparent Distress and Appears Chronically Ill
HEENT: Normocephalic and Atraumatic
Respiratory: Rhonchi and Crackles
Cardiac: Regular Rhythm and S1/S2
GI: Soft
Neuro: Sedated
Data Reviewed
-
Critical Care Time (in minutes): 41
Labs: Labs Reviewed by me
[2024-07-02] MEDS: SUBLIMAZE 100 IV (10:59)
[2024-07-02] MEDS: MAXIPIME 1000 MG IV (11:01)
[2024-07-02] MEDS: STERILE WATER FOR INJECTION 10 ML IV (11:01)
--- NOTE | 2024-07-02 12:00 | PTCARENOTE ---
assessment unchanged. remains in afib, turned and repositioned. propofol and fentanyl continue. continue to hold tube feeds per md.
[2024-07-02] MEDS: ProAmatine 10 MG TUBE ×2 (13:20→19:15)
--- NOTE | 2024-07-02 14:06 | CM ---
CM following re: discharge planning.
Discussed in rounds, reviewed pt's chart, met with pt and pt's at bedside. Per Rounds meeting, pt remains intubated, remains critically ill, ongoing goals of care discussion with the family, continue supportive care.
D/C plan: uncertain at this time and will depend on pt's progress.
CM will follow with discharge plan updates as hospitalization progresses
[2024-07-02] MEDS: LASIX 80 MG IV (16:33)
--- NOTE | 2024-07-02 16:49 | PTCARENOTE ---
assessment unchanged, pt remains restless and rigid see mar. prop and fent continue, at bedside. turned and repositioned, incont. of stool x2.
[2024-07-02] MEDS: ELIQUIS 2.5 MG PO (19:14)
--- NOTE | 2024-07-02 19:34 | PTCARENOTE ---
Rec'd pt sedated on diprivan at 15mic & fent at 75 schuyler, wrists restrained for pt safety, no response to commands, at bedside 7& updated on plan of care, Afib, midodrine 10mg via tube given at 1915 for bp, weak dsital pulses, + anasarca, #8
fior ett- repos on left side at 22 cm, ac 16, tv 350, 5 peep, 60%, lungs coarse, decr in bases, sm amt quiñones secretions, oral salem calmped for meds, rectal trumpet draining brown loose stool, abd soft, lomeli w/ scant bety ruine
[2024-07-03] VITALS (16 sets, daily range): BP systolic 87–121; BP diastolic 53–99; BMI 23.1
--- NOTE | 2024-07-03 | PTCARENOTE ---
Sys reviewed, changes noted
[2024-07-03] MEDS: SUBLIMAZE 100 IV (00:58)
[2024-07-03] MEDS: SUBLIMAZE 50 MCG IV ×4 (00:58→11:56)
--- NOTE | 2024-07-03 01:00 | PTCARENOTE ---
Fent 50 miv iv given before am care, CHG bath done, lines changed
[2024-07-03] MEDS: DIPRIVAN 100 IV (01:56)
[2024-07-03 04:42] LABS: Blood Urea Nitrogen 52 mg/dl (7-17); Calcium 7.8 mg/dl (8.4-10.2); Carbon Dioxide 20 mmol/L (22-30); Chloride 108 mmol/L (98-107); Estimated Creatinine Clearance 10 ml/min; Glucose 81 mg/dl (70-99); Potassium 3.4 mmol/L (3.5-5.1); Sodium 144 mmol/L (135-145); eGFR 13.42
[2024-07-03] MEDS: FLAGYL 500 MG 100 IV (05:09)
[2024-07-03] MEDS: SYNTHROID TUBE (05:14)
[2024-07-03] MEDS: KCL 160 MEQ IV (06:10)
--- NOTE | 2024-07-03 07:14 | W.PN.INTV ---
Today's Communication / Plan
Recommendations
Remains critically ill/unresponsive
Family to arrive today for plan to w/d care
Care team updated, awaiting family timing
Assessment
-
88-year-old female with history of atrial fibrillation, vascular dementia, breast cancer, colon cancer, presents with increased shortness of breath since 06/21. Patient refused transport upon first call to 911 but second call, was noted to be
saturating in the 70s, intubated in the ED. Influenza A positive, troponin positive. Given aspirin in the ED, Tamiflu via feeding tube. Patient was also given vancomycin and Zosyn, admitted to ICU for further management
Acute hypoxic respiratory failure-due to influenza A pneumonia/cannot rule out aspiration event/heart failure component
Saturation in the 70s
Intubated in ED 06/21
proBNP 06/22/2024 is 19,500
Hypotension, likely septic shock
Requiring pressors
Elevated troponin
Acute renal insufficiency on CKD suspected
Baseline not known
Elevated lactate
Acute transaminitis
Abnormal EKG
First-degree AV block
Atrial fibrillation/atrial flutter
Conditions present prior to admission
History of recurrent pneumonia
Suspected aspiration syndrome
Follows pulmonary at [facility] ([facility])
History of atrial fibrillation
Amiodarone therapy
On Eliquis
Hypothyroidism
History of vascular dementia
Plan
Remains critically ill, on mechanical ventilation. Intermittently on low-dose dose vasopressors.
Precedex discontinued 06/29/2024 due to increased work of breathing, hypoxemia and fever. Likely aspiration pneumonitis/pneumonia.
Will try to minimize propofol and fentanyl.
Patient biting the tube, agitated with sedation breaks
Okay to restart citalopram, Zyprexa daily via tube.
May need to get occasional Haldol if agitation continues.
Continue outpatient psychotropic medications. Unclear if there is absorption due to vomiting.
Suspect ongoing muscle weakness also impairing ability to wean at this point.
Will keep at lowest dose possible to maintain comfort. RASS score 0 to -1 if possible.
Continue with daily sedation breaks.
With sedation breaks: Not following commands but awake. Possibly baseline due to underlying dementia-becomes agitated and tachypneic with every sedation break.
Mechanical ventilation settings reviewed: Mechanical ventilation day #9
Continue with volume-cycled ventilation-AC 16/350/5/70%
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
ETT with thin secretions. Not excessive.
Rhonchi bilaterally on exam. Not bronchospastic.
Failed spontaneous breathing trial 06/25/2025-increased work of breathing, ABG with mild hypercapnia.
Attempted spontaneous breathing trial at 07/20/2023: Increased work of breathing after few minutes. Trial aborted.
Spontaneous breathing trial 06/28/2024: 2 hours on Precedex and low-dose fentanyl as well as the patient had increased work of breathing.
ABG 7.45/38/97. Unfortunately, not adequate for extubation as the patient had a respiratory rate of mid 20s to 30s. Likely hypercapnic.
Continue DuoNebs 3 times a day for secretion clearance.
No indication for steroids.
Currently off low-dose Sylvain-Synephrine, continue midodrine PRN
Renal function progressively worsening (initial 1.6-1.7 on adm -> 2.3 -> 2.8)
Given attempts at diuresis: 06/25/2025 and 06/26/2024 and 06/28/2024.
20 mg of Lasix given 06/30/2024
proBNP greater than > 27,000, urine output progressively poor 2850 -> 895 -> 785 -> 505 -> 30 (over past 4 days)
Renal following, appreciate recs--HD would not be offered in this patient, family agrees
Patient also appears to have aspiration syndrome per discussion with at the bedside on admission, pneumonia every year-will need to be addressed later on.
Pneumonia- Persistent low-grade fevers
Leukocytosis resolved
Cultures reviewed:
Repeat cultures negative. sputum 06/30 pending
C. difficile negative
Sputum + kip 06/27/24; neg 06/22/24; MRSA neg
Blood negative 06/27, 06/22
Flu A + 06/22
Cannot rule out aspiration pneumonitis as a reason for the fever
Completed Zosyn 06/28/2024; completed Tamiflu 06/28/2024
Antibiotics restarted 06/29/2024: Aspiration event, fevers, leukocytosis - CFP/Fgl
Discontinue Precedex may be related to low-grade fevers as well
Troponin mildly [id number] per Cardiology.
ECHO 06/23 stable
Rate control, amio/Eliquis continued
NSVT/atrial fibrillation. Slightly tachycardic-likely due to agitation.
Transaminitis noted-stable/monitor LFTs
Likely secondary to shock, sepsis- abdominal ultrasound unremarkable
OG tube in place/remains NPO
Hold tube feedings: Patient has diarrhea also had vomiting and high residuals 06/24/2024.
Vomiting 06/29/2024-tube feedings on hold. Will attempt to restart tube feedings tomorrow 07/01/2024.
Abdominal exam is benign-decreased bowel sounds suspect ileus
Abdominal film: Nonspecific bowel pattern 06/29/2024
Head of the bed elevation, aspiration precaution
Anemia: Chronic. Stable- Continue to follow will transfuse for hemoglobin less than 7
Normal platelet count
PPI for GI prophylaxis
DVT prophylaxis-Eliquis
Reviewed with critical care nursing, cardiology, primary service on a daily basis.
Case discussed with primary care team as well.
DNR status
Family Discussions
Juan A 07/02/24- Spoke to PCP Dr Hahn who agrees that w/d plan of care is best, she will try to be present tomorrow to help the cope with it. She will coordinate with daughter regarding timing. POA received and in chart, confirmed daughter
is POA.
Juan A 07/01/24- Spoke to daughter who would like to w/d on patient by at least Monday, she cannot do it tomorrow due to a dental procedure she is having done. She asked us to offer patient's a chance to choose when he would like this done. I
spoke to him at bedside to which he became extremely belligerent threatening to yamil if anyone touches her. He does not feel she is suffering despite being prolonged on the vent. He asked patient 'are you suffering?' and she did not respond but he
proceeded to accept her lack of response/unresponsiveness and an answer of 'no.'
He does not wish to move forward at all. I communicated this to the daughter who states she will be here Monday and will move forward with the plan at that time.
Dr. Nick updated at the bedside. 06/26/2024, 06/27/2024, 06/28/2024, 06/29/2024. 06/30/2024
Power of assistant prosecuting attorney daughter who is a radiation oncologist from [place] is here and she was updated by Dr. Nick 06/29/2024.
Dr. Nick also updated patient's primary care doctor again on 06/29/[address] Nick discussed extensively with 06/28/2024. Also discussed with patient's outpatient primary care doctor Dr. Hu.
Patient's , upset about the lack of progress. Asking to transfer to the different hospital. Also threatening with litigation. He he was explained that unfortunately his is very deconditioned, with advanced dementia, Frequent
pneumonias, primary care doctor states that the patient has been declining over the last year significantly. I told him that likely this is going to be a prolonged mechanical ventilation due to slow progress with improvement and advanced age and
comorbidities. Will continue with supportive care. Prognosis poor.
Diagnostic Data
Chest X-Ray:
Chest x-ray 06/30/2024: Reviewed endotracheal tube in place. Left hemidiaphragm elevation versus hiatal hernia. Prominence of vascular markings. Stable mild patchy parenchymal opacities in bilateral lungs. No pleural effusion. Cardiomegaly.
Chest x-ray 06/29/2024: Worsening bilateral infiltrates, left hemidiaphragm elevation. Pulmonary edema versus pneumonia
Chest x-ray 06/28/2024, continues to demonstrate patchy bilateral opacities no significant change compared to prior. Mild interstitial prominence suggestive pulmonary edema. Small left pleural effusion.
Chest x-ray 06/27/2024: showed mild bilateral patchy airspace disease concerning for developing pneumonia. Slight prominence of the interstitial markings diffusely. Mild pulmonary edema. Left pleural effusion mild. Cardiomegaly. Moderate
elevation of the left hemidiaphragm.
ABG 06/30/2024: 7.35/48/62
AB.48/37/217 (06/29/2024)
CT Scan:
Echo: 06/23/24- Small left ventricle with overall normal systolic function; left ventricular ejection fraction is 55-60% by visual assessment. Normal left ventricular wall thickness. Normal right ventricular size and function. Both ventricles
appear underfilled Dilated left atrium. Dilated right atrium. Calcified, trileaflet aortic valve with adequate excursion and a mean gradient of 8 mmHg. Tricuspid valve opens normally with moderate tricuspid regurgitation. Estimated pulmonary artery
pressure of 35-40 mmHg, assuming a right atrial pressure of 3 mmHg. Structurally normal pulmonic valve without significant stenosis or regurgitation. Normal pericardium without effusion. The IVC is of normal size.
PFT's:
Reports and relevant images were personally reviewed.
Critical care statement: A total of 45 minutes of critical care time was provided for this patient today. This includes management of unstable vital signs, evaluation of the patient at bedside, reviewing the patient's pertinent medical records
including ventilator settings, arterial blood gases, radiographs, microbiology, laboratory evaluations and discussion with primary team, critical care nursing, and respiratory therapy.
Subjective Dataa
Subjective Data
Date of Service:
Date of Service: July 03, 2024
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
Subjective:
Remains critically ill, on the vent
No changes
Objective Data
Data Reviewed
Vital Signs / I&O / Oxygen:
Vital Signs
Temp Pulse Resp BP Pulse Ox
97.5 F 120 20 103/65 98
07/03/24 03:27 07/03/24 06:00 07/03/24 05:00 07/03/24 06:00 07/03/24 06:00
Intake and Output
07/02/24 07/03/24 07/04/24
06:59 06:59 06:59
Intake Total 878.5 / 891.5 472.0 / 472.0
Output Total 575 / 605 990 / 990
Balance 303.5 / 286.5 -518.0 / -518.0
SaO2 [CPAP] 94
SaO2 [ASV] 94
SaO2 [A/C] 98
SaO2 98
Physical Exam
General: Other ( restless) and Other (Left upper extremity midline)
HEENT: Normocephalic and Anicteric
Cardiovascular: S1-S2, Irregular Rhythm, Murmur (n) and Rub (n)
Respiratory: Wheeze (n), Crackles (n), Rhonchi (Mild scattered bilaterally) and ET Tube (No significant secretion )
GI: Soft, Non Distended, Non Tender and Other (Decreased bowel sounds)
Neurology: Lethargic (Sedated but does spontaneously move extremities, increased work of breathing with sedation breaks, not following commands.)
Skin: Cyanosis (n), Jaundice (n), Rash (n) and Bruising (Few)
Labs/Micro/Reports
Lab Data
07/02/24 03:46
07/03/24 03:39
Microbiology
06/27/24 11:06 Blood/Venous Blood Culture - Final
No Growth - Final Report
06/27/24 10:19 Blood/Venous Blood Culture - Final
No Growth - Final Report
06/30/24 09:33 Sputum Respiratory Culture - Final
Klebsiella pneumoniae
Kip albicans
06/30/24 09:33 Sputum Gram Stain - Final
--- NOTE | 2024-07-03 07:34 | W.PN.HOSP.TC ---
Today's Communication/Plan
-
Continue current care
Assessment / Plan
Assessment / Plan
Gen-sedated, intubated
HEENT-NC, AT, anicteric, clear oral mm
Neck-supple
CV-reg, no M, +S1/S2
Lungs-clear B/L
Abd-soft, NT, ND
Ext-no edema
Musculoskeletal-no cyanosis, clubbing
Skin-warm and dry
Neuro-grossly non-focal
Psych-calm, cooperative
Acute hypoxic respiratory failure
VDRF (intubated 06/22)
- in setting of Influenza A
- wean vent/sedation per ICU team; follow ABGs and serial X-rays. Nearing close to indicated trach
- repeat CXR 06/25 with increased pulmonary edema pattern; IV Lasix per ICU as indicated
Septic shock from Influenza A, possible superimposed bacterial PNA
- continue pressors; wean as able
- completed 7 day Zosyn course and completed 5 day Tamiflu course
- recurrent fevers; continue IV Cefepime, Flagyl, day 4 per ID
- follow fever/WBC trends
Hx of Parox A. fib with RVR
- continue Amiodarone IV
- continue Digoxin
- continue Eliquis
- Echo: EF: 55-60%, moderate TR, pulmonary HTN
nonischemic myocardial injury
- trop peaked at 1.5 initially, now back to 1.77
Acute renal insufficiency, worsening
- volume overload on CXR
- IV Lasix
- Nephrology following
Elevated LFTs likely shock liver
- trend CMP
Hypothyroidism
- continue replacement. TSH normal
Vascular dementia
Essential HTN
- hold losartan
acute on Chronic anemia
- suspect from critical illness
- monitor Hb
Nutrition
- TFs on hold due to vomiting TF
Hypokalemia - replete prn
DVT ppx: Eliquis
Code: DNR/DNI
Prognosis poor
Discussed with at the bedside and nurse. Plan to withdraw care today when daughter who is the POA arrives.
Anticipated Discharge: Within 24 hours
Subjective/Interval History
-
Date of Service: July 03, 2024
Patient seen and examined. Intubated, sedated. Looks comfortable.
Objective Data
-
Labs:
Laboratory Results
07/03/24
03:39
Sodium 144
Potassium 3.4 L
Chloride 108 H
Carbon Dioxide 20 L
BUN 52 H
Creatinine 3.2 H
Glucose 81
Calcium 7.8 L
Vital Signs:
Vital Signs
Temp Pulse Resp BP Pulse Ox
97.5 F 120 20 103/65 98
07/03/24 03:27 07/03/24 06:00 07/03/24 05:00 07/03/24 06:00 07/03/24 06:00
I&O
07/02/24 07/03/24 07/04/24
06:59 06:59 06:59
Intake Total 878.5 / 891.5 472.0 / 472.0
Output Total 575 / 605 990 / 990
Balance 303.5 / 286.5 -518.0 / -518.0
Review of Systems
-
Unable to obtain full review of systems at this time due to: Dementia, Acuity and Patient Intubation
--- NOTE | 2024-07-03 07:36 | W.PN.CARDCBS ---
Today's Communication / Plan
-
A-fib remains with modestly elevated rates. Continue amiodarone and digoxin.
Continue with cefepime and Flagyl.
Continue Eliquis.
Creatinine up to 3.2. Would continue IV Lasix for another 24 hours and then may need to reduce dose.
Long-term prognosis very poor
Impression / Plan
-
.
Co Founder & Ceo: Dr. Hahn ([facility])
Impression:
Presented w/ respiratory distress
VDRF
Reconsultation for nonsustained V. tach versus A-fib with aberrancy 06/29/2024
Influenza A Pneumonia
Aspiration pneumonia
Sepsis
Non-[place] ischemic injury, troponin peak 1.5
Paroxysmal atrial fibrillation on chronic amiodarone therapy
Chronic OAC with Eliquis
Acute on chronic RF
Hypertension
Hypothyroidism
h/o breast cancer
h/o colon cancer
Vascular dementia
Echo Jun 23 2024: EF 55-60% with RODRIGUEZ, PASP 35-40 mmHg
Plan:
A-fib remains somewhat poorly controlled. Will continue amiodarone 400 mg p.o. 3 times daily. cont digoxin 0.125 mg every 48 hours.
Tachycardia likely multifactorial
Continue low-dose Eliquis
Creatinine up to 3.2. Continue to follow. Will repeat proBNP. Remains on IV Lasix and weight is slightly improved.
Continue Sylvain-Synephrine for blood pressure support.
Cont tx for Flu PNA and likely aspiration pneumonia
Cont vent management.
Discussed with at bedside. He is unsure if he is willing to proceed with tracheostomy.
Long-term prognosis is very poor.
CC time 32 min
HPI: Liza is an 88-year-old female with past medical history of paroxysmal atrial fibrillation maintained on Eliquis and amiodarone, hypertension, hypothyroidism, breast cancer, colon cancer, and vascular dementia. She presented to ER for
evaluation of respiratory distress. History is obtained from as patient is intubated and sedated. He reports they began feeling unwell earlier this week with flulike symptoms. She was given antibiotics and cough medicine by PCP. She
continued to feel poorly. He had EMS come out to evaluate her around 5 PM and reportedly she was stable with normal pulse ox and did not require hospitalization. They went to sleep later that night and when he woke up around 11 PM, he noted that
her breathing sounded labored, so he then called EMS and pulse ox was noted to be in the 70s and she was placed on nonrebreather. On arrival to the ER, she was markedly hypoxemic and in severe distress and required intubation. She remains
intubated and sedated at this time and has been admitted to the ICU with influenza A pneumonia and sepsis. Elevated troponin noted, trending up to 1.52 resulting in cardiology consultation. Has been reports no history of coronary artery disease or
prior stenting. He does note that she had a an echo within the past few months and has never been told that she has a weakened heart muscle
Progress Note - Co Founder & Ceo
Subjective
Date of Service: July 03, 2024
Remains intubated and sedated. Remains on 60% FiO2
Objective
Labs:
07/02/24 03:46
07/03/24 03:39
Labs
Hgb 7.1 g/dL (12.0-16.0) L 07/02/24 03:46
Hct 22.5 % (37.0-47.0) L 07/02/24 03:46
Plt Count 417 10^3/uL (130-400) H D 07/02/24 03:46
PT 16.7 Sec (11.4-14.6) H 06/22/24 00:57
INR 1.30 06/22/24 00:57
APTT Cancelled 06/25/24 11:30
APTT Cancelled 06/25/24 11:30
Sodium 144 mmol/L (135-145) 07/03/24 03:39
Potassium 3.4 mmol/L (3.5-5.1) L 07/03/24 03:39
BUN 52 mg/dl (7-17) H 07/03/24 03:39
Creatinine 3.2 mg/dL (0.6-1.0) H 07/03/24 03:39
Glucose 81 mg/dl (70-99) 07/03/24 03:39
Vital Signs and I&O:
Vital Signs
Temp Pulse Resp BP Pulse Ox
97.5 F 120 20 103/65 98
07/03/24 03:27 07/03/24 06:00 07/03/24 05:00 07/03/24 06:00 07/03/24 06:00
Vital Signs
Temp Pulse Resp BP Pulse Ox
97.5 F 120 20 103/65 98
07/03/24 03:27 07/03/24 06:00 07/03/24 05:00 07/03/24 06:00 07/03/24 06:00
Intake & Output
07/01/24 07/02/24 07/03/24 07/04/24
06:59 06:59 06:59 06:59
Intake Total 1415.6 / 1493.6 878.5 / 891.5 472.0 / 472.0
Output Total 615 / 645 575 / 605 990 / 990
Balance 800.6 / 848.6 303.5 / 286.5 -518.0 / -518.0
Physical Exam
Physical Exam
GEN: No distress, intubated, sedated
HEENT: supple, anicteric, mmm
LUNGS: Bilateral rhonchi
CV: Irreg, S1/S2, 1/6 syst LSB, no gallop
ABD: soft, BS+, NT/ND
EXT: No edema
NEURO: Gross non-focal
SKIN: No rash
[2024-07-03] MEDS: NSS (PRESERVATIVE FREE) 10 ML IV (08:38)
[2024-07-03] MEDS: LASIX 80 MG IV (08:39)
[2024-07-03] MEDS: PROTONIX IV 40 MG IV (08:39)
[2024-07-03 08:52] LABS: ALT (SGPT) 43 U/L (0-35); AST (SGOT) 46 U/L (14-36); Albumin 2.8 g/dl (3.5-5.0); Alkaline Phosphatase 163 U/L (38-126); Direct Bilirubin 0.4 mg/dl (0.0-0.4); Total Bilirubin 0.7 mg/dl (0.2-1.3); Total Protein 5.6 g/dl (6.3-8.2)
[2024-07-03 09:01] LABS: NT-proBNP > 27000 pg/ml
[2024-07-03] MEDS: CELEXA TUBE (09:21)
[2024-07-03] MEDS: ELIQUIS PO (09:21)
[2024-07-03] MEDS: LOW STRENGTH ASPIRIN TUBE (09:22)
[2024-07-03] MEDS: MIRALAX TUBE (09:22)
[2024-07-03] MEDS: ZYPREXA TUBE (09:22)
[2024-07-03] MEDS: PACERONE TUBE (09:22)
--- NOTE | 2024-07-03 09:36 | PTCARENOTE ---
pt responds to painful stimuli , decorticate posturing , bilateral corneal reflexes are non reactive , afib on monitor , Bp 109/53 , continues on vent support with 02 sats at 98% , pt is not tolerating tube feeds and is now NPO , oral gastric tube
continues to be in place , I was unable to hear proper placement with checking air bolus , pt was not given oral meds this am , she is to transition to comfort later this am with family present , labs noted , creatinine is increasing to 3.2 from 1.7
on admission WBC elevated to 26 , is at bedside , pt was given fentanyl bolus prior to turns in bed she is grimacing and decorticating with stimuli
[2024-07-03] MEDS: MAXIPIME IV (11:41)
[2024-07-03] MEDS: STERILE WATER FOR INJECTION IV (11:41)
--- NOTE | 2024-07-03 11:41 | PTCARENOTE ---
no change , family at bedside , they are waiting for other members to arrive before withdraw of care
--- NOTE | 2024-07-03 11:57 | W.PN.NEPH.PH ---
Today's Communication / Plan
-
will s/o, call with ?s
Assessment/Plan
-
Impression:
MELINDA
Metabolic acidosis
Acute hypoxic respiratory failure in setting of influenza A/vent dependent respiratory failure
Congestive heart failure versus/pneumonia
Elevated troponin
Atrial fibrillation with rapid ventricular response
History of vascular dementia
Nonischemic myocardial injury
Elevated LFTs
Hypokalemia
Plan:
MELINDA:
-Likely prerenal in setting of hemodynamic compromise in setting of atrial fibrillation with rapid ventricular response and septic shock
-No acute dialysis requirement, patient would be a poor dialysis candidate given advanced age and multiple comorbidities, this was discussed with the on 07/02 he stated he would not want dialysis either
-creatinine up to 3.2 but remains nonoliguric after lasix but weights rising, CXR reviewed: Noted persistent bilateral hilar infiltrates
cont IV diuresis given volume overload
-K has been provided earlier this am
-Remains on multiple antibiotic renal dosages reviewed
-Patient critically ill with vent dependent respiratory failure with worsening acute renal failure
noted plan withdraw care once family arrives
-
-
Date of Service: July 03, 2024
CC / HPI / ROS
-
Chief Complaint:
Acute kidney injury
History of Present Illness:
Kidney failure worsening with creatinine up to 3.2
Hemodynamically labile
Remains intubated
Review of Systems:
Nonoliguric 800 cc
Intubated and sedated
wt slightly down
Labs
-
Labs:
WBC 26.0 10^3/uL (4.8-10.8) H 07/02/24 03:46
RBC 2.34 10^6/uL (4.20-5.40) L 07/02/24 03:46
Hgb 7.1 g/dL (12.0-16.0) L 07/02/24 03:46
Hct 22.5 % (37.0-47.0) L 07/02/24 03:46
Plt Count 417 10^3/uL (130-400) H D 07/02/24 03:46
Sodium 144 mmol/L (135-145) 07/03/24 03:39
Potassium 3.4 mmol/L (3.5-5.1) L 07/03/24 03:39
Chloride 108 mmol/L (98-107) H 07/03/24 03:39
Carbon Dioxide 20 mmol/L (22-30) L 07/03/24 03:39
BUN 52 mg/dl (7-17) H 07/03/24 03:39
Creatinine 3.2 mg/dL (0.6-1.0) H 07/03/24 03:39
eGFR 13.42 07/03/24 03:39
Glucose 81 mg/dl (70-99) 07/03/24 03:39
Calcium 7.8 mg/dl (8.4-10.2) L 07/03/24 03:39
Phosphorus 4.3 mg/dl (2.5-4.5) 06/24/24 03:08
Suf-Q-Jeoqgsjqxrk Pept > 89867 pg/ml 07/03/24 03:39
Albumin 2.8 g/dl (3.5-5.0) L 07/03/24 03:39
Physical Exam
-
Vital Signs:
Vital Signs
Temp Pulse Resp BP Pulse Ox
97.5 F 116 14 107/69 98
07/03/24 03:27 07/03/24 11:00 07/03/24 11:00 07/03/24 11:00 07/03/24 11:00
Cardiovascular:: Regular rate and rhythm
Respiratory:: Bilateral: Coarse
Lung Excursion:: Abnormal
Abdomen:: Nontender and Soft
Bowel Sounds:: Decreased
Extremity Edema:: +1: Bilateral:
Beckman Catheter: Yes
Other Findings::
General: Intubated and sedated;
[2024-07-03] MEDS: MORPHINE SULFATE 1 MG IV ×2 (13:45→14:27)
[2024-07-03] MEDS: ATIVAN 1 MG IV (13:59)
[2024-07-03] MEDS: NSS (PRESERVATIVE FREE) 0.5 ML IV (14:00)
--- NOTE | 2024-07-03 14:27 | RESPNOTE ---
patient extubated for comfort measures at this time. family at bedside.
--- NOTE | 2024-07-03 14:51 | PTCARENOTE ---
pt extubated at 1420 , she 14:38 , family at bedside , Dr Sharp and Dr Rojo notifed of pt
--- NOTE | 2024-07-03 15:27 | CM ---
CM following re: discharge planning.
Discussed in rounds, reviewed pt's chart, met with pt and pt's at bedside. Per Rounds meeting, comfort care today after family arrives.
D/C plan: comfort care.
CM is available for emotional support.
--- NOTE | 2024-07-03 17:06 | W.PN.DEATH ---
Pronouncement of
-
Called to see patient to pronounce.
No spontaneous heart tones or respirations noted.
Patient not responsive to verbal stimuli.
Patient is pronounced .
Time of : 14:38
Date of : 07/03/24
Family Notified: Yes
== END 2024-07-03 14:38 | disposition expired | DRG 870 ==
LOC: ICU 05:13
PROVIDERS: Internal Medicine; Internal Medicine Critical Care Medicine; Nurse Practitioner Family; Nurse Practitioner Primary Care; Radiology Diagnostic Radiology; ADMITTING PHYSICIAN Hospitalist; ATTENDING PHYSICIAN Hospitalist; CONSULT PHYSICIAN Internal Medicine Cardiovascular Disease; CONSULT PHYSICIAN Internal Medicine Critical Care Medicine; CONSULT PHYSICIAN Internal Medicine Infectious Disease; CONSULT PHYSICIAN Specialist; EMERGENCY PHYSICIAN Emergency Medicine
PROC: 0BH18EZ Insertion of Endotracheal Airway into Trachea, Via Natural or Artificial Opening Endoscopic (ICD-10-PCS; 2024-06-22)
PROC: 5A1955Z Respiratory Ventilation, Greater than 96 Consecutive Hours (ICD-10-PCS; 2024-06-22)
PROC: 03HB33Z Insertion of Infusion Device into Right Radial Artery, Percutaneous Approach (ICD-10-PCS; 2024-06-29)
PROC: 0DH67UZ Insertion of Feeding Device into Stomach, Via Natural or Artificial Opening (ICD-10-PCS; 2024-07-01)
DX: A41.89 Other specified sepsis (principal); J10.08 Influenza due to other identified influenza virus with other specified pneumonia; J96.01 Acute respiratory failure with hypoxia; J15.0 Pneumonia due to Klebsiella pneumoniae; R65.21 Severe sepsis with septic shock; Z66 Do not resuscitate; K72.00 Acute and subacute hepatic failure without coma; J69.0 Pneumonitis due to inhalation of food and vomit; I5A Non-ischemic myocardial injury (non-traumatic); E87.20 Acidosis, unspecified; R64 Cachexia; N17.9 Acute kidney failure, unspecified; Z99.11 Dependence on respirator [ventilator] status; I48.0 Paroxysmal atrial fibrillation; F01.50 Vascular dementia, unspecified severity, without behavioral disturbance, psychotic disturbance, mood disturbance, and anxiety; E03.9 Hypothyroidism, unspecified; I44.0 Atrioventricular block, first degree; I50.9 Heart failure, unspecified; I11.0 Hypertensive heart disease with heart failure; Z11.52 Encounter for screening for COVID-19; Z88.5 Allergy status to narcotic agent; Z85.3 Personal history of malignant neoplasm of breast; Z85.038 Personal history of other malignant neoplasm of large intestine; Z79.899 Other long term (current) drug therapy; Z79.890 Hormone replacement therapy; Z79.01 Long term (current) use of anticoagulants; Z68.23 Body mass index [BMI] 23.0-23.9, adult
CPT/HCPCS: 31500; 36600; 43752; 71045; 74018; 76700; 80048; 80053; 80076; 80202; 81003; 81015; 82248; 82330; 82805; 83605; 83735; 83880; 84100; 84132; 84302; 84443; 84478; 84484; 85025; 85027; 85610; 85730; 86850; 86900; 86901; 87040; 87070; 87077; 87186; 87205; 87324; 87449; 87502; 87811; 93005; 93306; 94002; 94003; 94640; 96365; 96366; 96375; 99291; J1160